=== PATIENT | male | born 1930 | race Caucasian/White ===

== ENCOUNTER 2016-11-23 14:19 | Inpatient (IN) ==
--- NOTE | 2016-11-23 17:32 | Internal Med History&Physical ---
Date of Encounter: 11/23/16 Time of Encounter: 17:24 Assessment and Plan (1) Afib Current visit: Yes Status: Acute Rate is controlled. Patient is not on any rate blocking medications. I will avoid starting beta blockers and the perioperative period since he is not on it.Prior studies showed that rapid initiation of Beta blockers preoperative is associated with worse outcomes. Continue aspirin perioperatively. If rate comes fast will give the patient digoxin. His INR is 1.84. He took Coumadin yesterday. Hold Coumadin today. Check INR in the morning. Hopefully if it is less than 1.6 surgery may be possible depending on surgeon preference. Continuous telemetry monitoring Qualifiers: Qualified Code(s): I48.91 - Unspecified atrial fibrillation (2) Closed right hip fracture Current visit: Yes Status: Acute Orthopedic surgery consult. Physical therapy occupational therapy and social media manager for skilled care placement on discharge Qualifiers: Qualified Code(s): S72.001A - Fracture of unspecified part of neck of right femur, initial encounter for closed fracture (3) Coronary artery disease Current visit: Yes Status: Acute Stable he denies any exertional chest pain. He had cabbage 2 years ago. Patient may benefit from beta blockers as an outpatient physical rate would allow. Continue aspirin Qualifiers: Qualified Code(s): I25.10 - Atherosclerotic heart disease of [place] coronary artery without angina pectoris (4) COPD (chronic obstructive pulmonary disease) Current visit: Yes Status: Acute Stable. No active wheezing Qualifiers: Qualified Code(s): J44.9 - Chronic obstructive pulmonary disease, unspecified (5) DVT prophylaxis Current visit: Yes Status: Acute INR is 1.84 today. (6) Preoperative clearance Current visit: Yes Status: Acute I will ask cardiology service for preoperative clearance. Patient has limited functional capacity because of his COPD mainly. However he denies any chest pain with exertion or at rest. Will check 12 lead electrocardiogram. He is a nature flutter and will have to make sure that his rate is optimally controlled prior to surgery Internal Medicine - H&P: HPI Chief complaint: right hip paoin after fall History of present illness: Mr. Bland is a 86 year old male with multiple medical problems including CABG surgery in 2015, COPD not on home oxygen, chronic persistent atrial fibrillation on anticoagulation with Coumadin, history of prostate cancer, peripheral neuropathy, was transferred from outside ER after he was found to have right hip fracture. Patient yesterday was entering a restaurant tripped in the steps and fell down on the right hip. He denies any loss of consciousness chest pain, palpitations prior to the fall. He does not fall previously. After the fall he was having pain in the right hip area and was unable to bear weight on the right lower extremity. X-ray showed minimally displaced right into trochanteric hip fracture. Patient denies any recent febrile illness. No focal neurological deficits. Patient takes Coumadin 1 mg daily he does not check his INR. INR today's 1.84. He took his Coumadin yesterday. Patient has limited functional capacity because of COPD. He can walk half a block. He denies any limiting chest pain but limitation is mainly due to shortness of breath. Past Med Surg Social Fam HX - Past Medical History Medical history: atrial fibrillation, cancer, COPD, hypertension, kidney stones Psychiatric history: anxiety - Past Surgical History Surgical History: coronary bypass (CABG) - Social History Smoking Status: Never smoker Alcohol use: none Drug use: none Internal Medicine - H&P: Meds Aspirin [Lo-Dose Aspirin EC] 81 mg PO DAILY 11/23/16 [History] Warfarin [Coumadin] 1 mg PO DAILY 11/23/16 [History] Allergies ciprofloxacin [From Cipro] Adverse Reaction (Verified 11/23/16 17:18) Nausea Oxycodone [From Percocet] Adverse Reaction (Verified 11/23/16 17:18) Nausea rofecoxib [From Vioxx] Adverse Reaction (Verified 11/23/16 17:18) Nausea All Systems PM: A 10-system review of systems was performed and is negative for pertinent findings except as documented above in the HPI. Review of systems: 10 point review of systems is negative except for HPI - Constitutional Vitals: Temp Pulse Resp BP Pulse Ox 97.5 F L 82 18 139/69 97 11/23/16 17:11 11/23/16 17:11 11/23/16 17:11 11/23/16 17:11 11/23/16 17:11 Exam: Gen.: patient is alert oriented times 3 not in distress. Cardiac: variable intensity of S1 isatu to AFib chest: fair air entry. no active wheezing. No crackles or bronchial breathing. abdomen: soft nontender nondistended normal bowel sounds neuro: no focal deficit
[2016-11-23] MEDS: Ondansetron 4 MG/2 ML VIAL IVP PRN (17:45)
[2016-11-23 17:47] LABS: INR 1.6; Prothrombin Time 17.3 Seconds (9.4-12.1)
[2016-11-23] MEDS: *HR* Morphine 2 MG/ML SYRINGE IVP PRN ×2 (18:23→23:21)
[2016-11-24] MEDS: Ondansetron 4 MG/2 ML VIAL IVP PRN (00:18)
[2016-11-24] MEDS: *HR* Morphine 2 MG/ML SYRINGE IVP PRN ×3 (03:35→14:52)
[2016-11-24 04:49] LABS: Basophils % 0.5 %; Eosinophils % 0.2 %; Hematocrit 25.9 % (37.5-50.1); Hemoglobin 8.7 g/dL (12.9-16.9); Immature Granulocytes % 3.3 % (0-4); Lymphocytes % 18.7 %; Mean Corpuscular HGB Conc 33.6 g/dL (31.6-35.5); Mean Corpuscular Hemoglobin 39.2 pg (28.0-33.3); Mean Corpuscular Volume 116.7 fL (83.0-100.0); Mean Platelet Volume 10.6 fL (9.4-12.4); Monocytes # 1.1 K/mcL (0.0-1.3); Monocytes % 17.3 %; Neutrophils # 3.7 K/mcL (1.6-8.9); Platelet Count 187 K/mcL (140-400); Red Blood Count 2.22 M/mcL (4.19-5.50)
[2016-11-24 04:52] LABS: Lymphocytes # 1.1 K/mcL (0.6-4.6)
[2016-11-24 05:02] LABS: BUN/Creatinine Ratio 22 (6-26); Blood Urea Nitrogen 21 mg/dL (8-26); Calcium 8.8 mg/dL (8.6-10.8); Carbon Dioxide 26 mEq/L (19-29); Chloride 101 mEq/L (98-109); Glucose 127 mg/dL (70-99); Magnesium 1.9 mg/dL (1.6-2.6); Osmolality,Calculated 285 (280-300); Potassium 4.2 mEq/L (3.5-4.5); Sodium 135 mEq/L (136-145); eGFR For African Americans > 60 (> 60); eGFR For Non-African Americans > 60 (> 60)
[2016-11-24 05:34] LABS: Anisocytosis 1+ (Not Present); Large Platelets Present (Not Present); Macrocytosis Present (Not Present); Platelet Estimate Normal (Normal); Poikilocytosis 1+ (Not Present)
[2016-11-24 05:35] LABS: Ovalocytes 1+ (Not Present)
[2016-11-24] MEDS ORDERED: Bisacodyl 10 MG RECTAL SUPPOSITORY RC STA (08:38)
[2016-11-24] MEDS ORDERED: Famotidine 20 MG TABLET PO SCH (09:00)
[2016-11-24] MEDS ORDERED: Sennosides/Docusate Sodium TABLET PO SCH (09:00)
[2016-11-24] MEDS ORDERED: Aspirin Enteric Coated 81 MG Tablet PO SCH (09:00)
--- NOTE | 2016-11-24 10:24 | Cardiology Consult Note ---
<CrowAlexa Cody - Last Filed: 11/24/16 11:06> Date of Encounter: 11/24/16 Time of Encounter: 10:00 Assessment and Plan (1) Closed right hip fracture Current Visit: Yes Status: Acute Per cardiology: -Patient with fall. -Orthopedic surgery consult. -Fracture confirmed with hip x-ray and hip CT. -Management per primary and orthopedic surgery services. Qualifiers: Encounter type: initial encounter Qualified Code(s): S72.001A - Fracture of unspecified part of neck of right femur, initial encounter for closed fracture (2) Preoperative clearance Current Visit: Yes Status: Acute Per cardiology: -Pre-op clearance for hip fracture, -Patient with known CAD with CABG 3-4 years ago. -Patient denies chest pain. -Patient admits to increased fatigue and increased shortness of breath. -Will obtain ECG and echocardogram. -Will obtain cardiology records from [facility]. -Further recommendations pending ECG, echo, and review of records. -Patient and family state understanding and agree with plan. (3) Afib Current Visit: Yes Status: Chronic Per cardiology: -Known history of a.fib, not on any rate controlling medications. Pateint states has been a.fib since CABG. -Patient unsure why he is not on medications. -Records have been requested. -On coumadin, however only takes 1mg per day. Patient states no one monitors INR or coumadin dosing. -Currently a.fib, HR 75. -Denies bleeding, blood loss, stroke like symptoms, or DVT. -Of note, Hemoglobin 8.7, unsure of baseline. Will await records. -Further recommendations pending review of records. Qualifiers: Atrial fibrillation type: chronic Qualified Code(s): I48.2 - Chronic atrial fibrillation (4) Coronary artery disease Current Visit: Yes Status: Chronic Per cardiology: -KNown CAD with CABG x3 3-4 years ago. -Patient denies cath since CABG. -Pateint reports echo 3 years ago. -Patient states is not on beta selene, statin at home. States he only takes asa and coumadin. -Patient denies chest pain. -Admits to increased shortness of breath and increased fatigue. -Echo and ECG pending. -Further recommendations pending echo, ECG, and review of previous medical records. Qualifiers: Coronary Disease-Associated Artery/Lesion type: unspecified vessel or lesion type [place] vs. transplanted heart: [place] heart Associated angina: without angina Qualified Code(s): I25.10 - Atherosclerotic heart disease of [place] coronary artery without angina pectoris Discussion w patient/family: The assessment and plan as outlined above was discussed with the patient and/or family members who expressed understanding and agreement. All questions were answered. Thank you for involving us in the care of your patient. Please call with any questions. Discussed and reviewed with . History of Present Illness Consult date: 11/23/16 Requesting physician: Kwadwo Tsai Consult reason: pre-op clearance. History of CABG, a.fib Chief complaint: hip pain History of present illness: Mr. Bland is a 86 year old male with a relevant past medical history of CAD s/ p CABG x3 3-4 years ago, atrial fibrillation, COPD, prostate CA, neuropathy. Patient presents to [facility] after a fall with hip pain. Patient noted to have fracture and cardiology was consulted for pre-operative clearance. Patient states CABG was 3-4 years ago at [facility] with 3 bypass grafts. Patient denies cardiac catheterization since CABG. Patient admits to atrial fibrillation since CABG. Patient states he is not on any rate control medications. Patient states he takes 1mg of coumadin per day. Patient states no one monitors INR or coumadin dosing. Patient states last echocardiogram 3 years ago. Patient denies chest pain. Patient states shortness of breath has worsened in the past year. Patient admits to COPD and states had recent abnormal PFTs. Patient admits to increased fatigue over the last year. Patient's son at bedside and affirms patient's medical history. Past Med Surg Social Fam HX - Past Medical History Attestation: Yes The following information was validated with the patient. Source: patient, obtained from family Medical history: atrial fibrillation, cancer, COPD, hypertension, kidney stones Psychiatric history: anxiety - Past Surgical History Surgical History: coronary bypass (CABG) - Social History Smoking Status: Never smoker Alcohol use: none Drug use: none Medications and Allergies Aspirin [Lo-Dose Aspirin EC] 81 mg PO DAILY 11/23/16 [History] Warfarin [Coumadin] 1 mg PO DAILY 11/23/16 [History] Allergies ciprofloxacin [From Cipro] Adverse Reaction (Verified 11/23/16 17:18) Nausea Oxycodone [From Percocet] Adverse Reaction (Verified 11/23/16 17:18) Nausea rofecoxib [From Vioxx] Adverse Reaction (Verified 11/23/16 17:18) Nausea All Systems Review: A 10-system review of systems was performed and is negative for pertinent findings except as documented above in the HPI. - Constitutional Constitutional: fatigue - Cardiovascular Cardiovascular: as per HPI, dyspnea on exertion - Musculoskeletal Musculoskeletal: other (hip pain) Physical Examination Vital Signs, Last 4 Hours Temp Pulse Resp BP Pulse Ox 11/24/16 06:47 98.3 F 67 16 129/68 95 General: Conversant, No Apparent Distress HEENT: Atraumatic, Normocephaly, Mucus Membranes Moist Neck: No JVD, Normal carotid pulses Cardiac: Other (Irregularly, irregular) Lungs: Normal Breath Sounds, No Wheeze, Rales, Rhonchi Neuro: Alert and responsive, No focal deficits noted Abdomen: Soft, Non-Tender Skin: No rashes noted on visualized skin Musculoskeletal: No Chest Wall Tenderness, Other (Hip pain) Extremities: No Clubbing, No Cyanosis, No Edema, Normal Pulses Results 11/24/16 09:31 11/24/16 04:13 Lab Results Impressions Hip X-Ray 11/24/16 06:46 IMPRESSION: Questionable nondisplaced traumatic right femoral neck fracture. Recommend cross-sectional imaging for further evaluation given degree of osteopenia and overlying artifact. The findings were sent to the Radiology Results Communication Center at 7:51 am on 11/24/2016to be communicated to a licensed caregiver. D/ / Julio Roblse MD / Julio Robles MD Interpreting Provider: Julio Robles MD Hip CT 11/24/16 07:56 IMPRESSION: Acute nondisplaced, non angulated hairline fracture through the low right femoral neck. 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 Note that the distal aorta was not included on this pelvic CT. D/ / Trevor Galindo MD / Trevor Galindo MD Interpreting Provider: Trevor Galindo MD Active Medications Aspirin (Aspirin Ec) 81 mg PO DAILY OZZY Stop: 05/26/17 09:01 Last Admin: 11/24/16 08:57 Dose: 81 mg Famotidine (Pepcid) 20 mg PO DAILY OZZY PRN Reason: Protocol Stop: 05/26/17 09:01 Last Admin: 11/24/16 08:57 Dose: 20 mg Morphine Sulfate (Morphine Sulfate) 1 mg IVP Q4HR PRN PRN Reason: Pain Stop: 05/25/17 17:23 Last Admin: 11/24/16 08:57 Dose: 1 mg Ondansetron HCl (Zofran) 4 mg IVP Q6HR PRN; Protocol PRN Reason: Nausea Stop: 05/25/17 17:23 Last Admin: 11/24/16 00:18 Dose: 4 mg Senna/Docusate Sodium (Senna Plus) 2 each PO BID OZZY PRN Reason: Protocol Stop: 05/26/17 09:01 Last Admin: 11/24/16 08:57 Dose: 2 each Laboratory Tests 11/23/16 11/24/16 11/24/16 17:35 04:13 04:13 Hgb 8.7 L Hct 25.9 L INR 1.6 Creatinine 0.95 - Imaging and Cardiology Echo: pending - EKG Interpretation EKG results cardiology: other (Telemetry reviewed with average HR 75, atrial fibrillation. Longest pause noted to be 2 seconds. PVCs and rare couplets noted. ) Consult Discharge Plan - Plan Referrals: Vivek Sosa DO [Primary Care Provider] - <Paula Barrera - Last Filed: 11/24/16 17:17> Date of Encounter: 11/24/16 Assessment and Plan Discussion w patient/family: The assessment and plan as outlined above was discussed with the patient and/or family members who expressed understanding and agreement. All questions were answered. Thank you for involving us in the care of your patient. Please call with any questions. History of Present Illness History of present illness: Mr. Bland is a 86 year old male All Systems Review: A 10-system review of systems was performed and is negative for pertinent findings except as documented above in the HPI. Physical Examination Vital Signs, Last 4 Hours Temp Pulse Resp BP Pulse Ox 11/24/16 15:00 97.7 F 84 16 115/64 94 Results 11/24/16 13:35 11/24/16 04:13 Lab Results 11/23/16 11/24/16 11/24/16 17:35 04:13 04:13 WBC 6.1 Hgb 8.7 L Hct 25.9 L Plt Count 187 INR 1.6 Sodium 135 L Potassium 4.2 Chloride 101 Carbon Dioxide 26 BUN 21 Creatinine 0.95 Glucose 127 H Calcium 8.8 Magnesium 1.9 11/24/16 11/24/16 11/24/16 09:31 13:35 13:35 WBC Hgb 9.0 L 9.4 L Hct 26.6 L 27.7 L Plt Count INR 1.5 Sodium Potassium Chloride Carbon Dioxide BUN Creatinine Glucose Calcium Magnesium - Attending Attestation I examined this patient and my medical decision-making was reviewed with the MANAGEMENT LIAISON/PA/Advanced Practice Nurse/Resident Physician. I agree with the documented findings, disposition and treatment plan. Mr. 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 He did not lose consciousness. We reviewed his medical records documenting history of CAD s/p CABG in 2014. He had an echo at that time demonstrating normal LVEF with moderate MR without comment about aortic valve pathology. His echo presently documents normal LVEF with a heavily calcified aortic valve, gradients of which were not well obtained and otherwise mild valvular abnormalities. On exam, he also has a murmur of aortic stenosis. We have recommended performing a limited echo for further evaluation of the valve pre-procedurally. Otherwise, he denies any complaints of chest pain over the last 6 months and no breathing difficulties. He admits to fair functional capacity with some mechanical limitation. He has rate controlled AF/ AFL and is on coumadin.
[2016-11-24 10:45] LABS: Hematocrit 26.6 % (37.5-50.1)
[2016-11-24 10:46] LABS: % Iron Saturation 23 % (20-55); Iron 60 mcg/dL (65-175); Transferrin 187 mg/dL (174-364)
[2016-11-24 11:20] LABS: Ferritin 543 ng/ml (22-275)
[2016-11-24 11:47] LABS: Folate 8.9 ng/mL (7.0-31.4)
[2016-11-24 13:44] LABS: Hematocrit 27.7 % (37.5-50.1); Hemoglobin 9.4 g/dL (12.9-16.9)
[2016-11-24 13:53] LABS: INR 1.5; Prothrombin Time 16.9 Seconds (9.4-12.1)
--- NOTE | 2016-11-24 15:00 | Electrocardiograph Report ---
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
--- NOTE | 2016-11-24 16:09 | Internal Med Progress Note ---
<DarylLindy Angelicanaz Woo - Last Filed: 11/24/16 16:41> Date of Encounter: 11/24/16 Time of Encounter: 11:00 - Assessment and plan (1) Closed right hip fracture Current Visit: Yes Status: Acute Assessment and plan: Patient presented to hospital with fall at [facility] CT of right hip demonstrated acute nondisplaced, non angulated hairline fracture through the low right femoral neck Patient currently NPO and pending surgical evaluation per ortho Orthopedics team has been consulted We appreciate their evaluation and treatment of this patient Qualifiers: Encounter type: initial encounter Qualified Code(s): S72.001A - Fracture of unspecified part of neck of right femur, initial encounter for closed fracture (2) Afib Current Visit: Yes Status: Chronic Assessment and plan: Patient is not rate-controlled Coumadin being held due to possible surgery Per cardiology notes, patient takes 1mg coumadin per day, but does not monitor INR Current INR 1.6 Qualifiers: Atrial fibrillation type: chronic Qualified Code(s): I48.2 - Chronic atrial fibrillation (3) Macrocytic anemia Current Visit: Yes Status: Acute Assessment and plan: Patient has Hb of 8.7 with increased MCV Patient has increased RDW, therefore he may have mixed anemia Patient reports that he takes Vitamin B12 over the counter Will obtain iron profile, ferritin, B12, folate (4) Coronary artery disease Current Visit: Yes Status: Chronic Assessment and plan: S/P CABG 3-4 years ago Takes ASA 81mg daily Does not take BB, statin, or ARMANI inhibitor Cardiology has been consulted for cardiac clearance for surgery Qualifiers: Coronary Disease-Associated Artery/Lesion type: unspecified vessel or lesion type [place] vs. transplanted heart: [place] heart Associated angina: without angina Qualified Code(s): I25.10 - Atherosclerotic heart disease of [place] coronary artery without angina pectoris (5) Preoperative clearance Current Visit: Yes Status: Acute Assessment and plan: Pre-operative clearance has seen patient for cardiology clearance (6) COPD (chronic obstructive pulmonary disease) Current Visit: Yes Status: Acute Assessment and plan: Stable. No wheezing. Qualifiers: COPD type: unspecified COPD Qualified Code(s): J44.9 - Chronic obstructive pulmonary disease, unspecified (7) DVT prophylaxis Current Visit: Yes Status: Acute Assessment and plan: SCDs - Subjective Interval history: Patient presented to hospital 1 day ago for fall resulting in closed right hip fracture. Patient states that he fell while dining at [employer]. Patient was helped to his car by restaurant employee. He drove home, but once home was unable to get out of his car. Patient's son was able to extract patient from the car. Ambulance was called. Patient was found to have closed right hip fracture. Patient admits some right-sided hip pain at this time. He also complains that he has not had a bowel movement in 2 days. Otherwise, patient has no other complaints. - Constitutional Vitals: Temp Pulse Resp BP Pulse Ox 97.7 F 84 16 115/64 94 11/24/16 15:00 11/24/16 15:00 11/24/16 15:00 11/24/16 15:00 11/24/16 15:00 General appearance: Present: A&O X 3, no acute distress, underweight, answers questions appropriately - Head Head exam: Present: atraumatic, normocephalic - Eye Eye exam: Present: EOMI, conjuntiva pink (Pale pink conjunctiva), sclera anicteric - Neck Neck exam general surgery: Present: supple, trachea midline. Absent: lymphadenopathy Additional comments: No carotid bruit - Respiratory Respiratory exam: Present: CTAB. Absent: accessory muscle use, rales, rhonchi, wheezes - Cardiovascular Cardiovascular exam: Present: irregular rhythm, +S1, +S2, systolic murmur. Absent: diastolic murmur, gallop, rubs - GI/Abdominal GI/Abdominal exam: Present: normal bowel sounds, soft, no peritoneal signs. Absent: distended, tenderness - Extremities Exam Extremities exam: Present: warm, radial pulses palpable and symetrical. Absent : cyanotic, full ROM, pedal edema Additional comments: TTP of right hip No hematoma or ecchymosis noted - Neurological Exam Neurological exam: Present: CN II-XII intact, oriented X3, no focal deficits, pronater drift. Absent: facial droop, speech deficit - Skin Skin exam: Present: dry, intact - Other Additional findings: Hip X-Ray 11/24/16 06:46 IMPRESSION: Questionable nondisplaced traumatic right femoral neck fracture. Recommend cross-sectional imaging for further evaluation given degree of osteopenia and overlying artifact. The findings were sent to the Radiology Results Communication Center at 7:51 am on 11/24/2016to be communicated to a licensed caregiver. D/ / Julio Robles MD / Julio Robles MD Interpreting Provider: Julio Robles MD Hip CT 11/24/16 07:56 IMPRESSION: Acute nondisplaced, non angulated hairline fracture through the low right femoral neck. 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 Note that the distal aorta was not included on this pelvic CT. D/ / Trevor Galindo MD / Trevor Galindo MD Interpreting Provider: Trevro Galindo MD Internal Medicine: Result - Labs CBC & Chem 7: 11/24/16 13:35 11/24/16 04:13 Labs: Short CBC 11/24/16 11/24/16 11/24/16 Range/Units 04:13 09:31 13:35 WBC 6.1 (4.3-11.1) K/mcL Hgb 8.7 L 9.0 L 9.4 L (12.9-16.9) g/dL Hct 25.9 L 26.6 L 27.7 L (37.5-50.1) % Plt Count 187 (140-400) K/mcL Neutrophils # 3.7 (1.6-8.9) K/mcL BMP 11/24/16 04:13 Sodium 135 L Potassium 4.2 Chloride 101 Carbon Dioxide 26 BUN 21 Creatinine 0.95 Glucose 127 H Calcium 8.8 - ABG Interpretation ABG results: PT/INR, D-dimer PT 16.9 Seconds (9.4-12.1) H 11/24/16 13:35 - Impressions Impressions Hip X-Ray 11/24/16 06:46 IMPRESSION: Questionable nondisplaced traumatic right femoral neck fracture. Recommend cross-sectional imaging for further evaluation given degree of osteopenia and overlying artifact. The findings were sent to the Radiology Results Communication Center at 7:51 am on 11/24/2016to be communicated to a licensed caregiver. D/ / Julio Robles MD / Julio Robles MD Interpreting Provider: Julio Robles MD Hip CT 11/24/16 07:56 IMPRESSION: Acute nondisplaced, non angulated hairline fracture through the low right femoral neck. 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 Note that the distal aorta was not included on this pelvic CT. D/ / Trevor Galindo MD / Trevor Galindo MD Interpreting Provider: Trevor Galindo MD Consult Discharge Plan - Plan Referrals: Vivek Sosa DO [Primary Care Provider] - <Jarrod Mcgregor - Last Filed: 11/24/16 19:46> Date of Encounter: 11/24/16 - Constitutional Vitals: Temp Pulse Resp BP Pulse Ox 97.7 F 84 16 115/64 94 11/24/16 15:00 11/24/16 15:00 11/24/16 15:00 11/24/16 15:00 11/24/16 15:00 Internal Medicine: Result - Labs CBC & Chem 7: 11/24/16 13:35 11/24/16 04:13 Labs: Short CBC 11/24/16 11/24/16 11/24/16 Range/Units 04:13 09:31 13:35 WBC 6.1 (4.3-11.1) K/mcL Hgb 8.7 L 9.0 L 9.4 L (12.9-16.9) g/dL Hct 25.9 L 26.6 L 27.7 L (37.5-50.1) % Plt Count 187 (140-400) K/mcL Neutrophils # 3.7 (1.6-8.9) K/mcL BMP 11/24/16 04:13 Sodium 135 L Potassium 4.2 Chloride 101 Carbon Dioxide 26 BUN 21 Creatinine 0.95 Glucose 127 H Calcium 8.8 - ABG Interpretation ABG results: PT/INR, D-dimer PT 16.9 Seconds (9.4-12.1) H 11/24/16 13:35 - Impressions Impressions Hip X-Ray 11/24/16 06:46 IMPRESSION: Questionable nondisplaced traumatic right femoral neck fracture. Recommend cross-sectional imaging for further evaluation given degree of osteopenia and overlying artifact. The findings were sent to the Radiology Results Communication Center at 7:51 am on 11/24/2016to be communicated to a licensed caregiver. D/ / Julio Robles MD / Julio Robles MD Interpreting Provider: Julio Robles MD Hip CT 11/24/16 07:56 IMPRESSION: Acute nondisplaced, non angulated hairline fracture through the low right femoral neck. 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 Note that the distal aorta was not included on this pelvic CT. D/ / Trevor Galindo MD / Trevor Galindo MD Interpreting Provider: Trevor Galindo MD - Attending Attestation I examined this patient and my medical decision-making was reviewed with the Resident Physician, Dr Lindy Brito. I agree with the documented findings, disposition and treatment plan as described except to the extent set forth below. Patient is in no acute distress awake alert oriented. Heart is regular S1-S2 no murmurs lungs are clear abdomen is soft extremities with no deformity no edema no obvious shortening of the lower extremity. Mild tenderness to palpation of the right hip. Plan: Patient cleared for hip surgery. He will require FFP prior to surgery due to anticoagulation with Coumadin and INR 1.6. He is at high risk for morbidity mortality and complications due to major surgery today.
--- NOTE | 2016-11-24 16:32 | ECHO - Doppler Report ---
Echocardiogram Name: Jayesh Bland Date of Study: 11/24/2016 Date: 1930 Ht: 69.0 in Medical Record#: [id number] Age: 86 Wt: 168.0 lb Gender: Male BSA: 1.92 Order #: [id number] Location: [facility] Room #: [id number] Reading Physician: Mata Yun DO, SYLWIA, SHERLY BARROS Station Gateman: Heriberto Sparks RN Ordering Physician: Alexa Maria CNP Primary Physician: Vivek Sosa DO Indications: Preoperative Examination Impressions: LVEF 55%. Asymmetric hypertrophy of the basal septum. No LVOT obstruction. 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 Atypical septal motion consistent with post-operative status. Indeterminate diastolic function. Grossly normal right ventricular structure and function. Severely dilated left atrium. Heavily calcified, trileaflet aortic valve with reduced mobility. No aortic stenosis by Doppler, but gradients were not well obtained. Mild mitral regurgitation. Mild tricuspid regurgitation. Mild pulmonary hypertension. Estimated RVSP is 40 mmHg. Consider a repeat limited study with attention to the aortic valve. 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 All other wall segments showed normal motion. Findings: Study Quality * Technically adequate exam. ECG Findings * Atrial flutter. Left Ventricle * LVEF 55%. * Normal LV chamber size. Asymmetric hypertrophy of the basal septum. No LVOT obstruction. 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 * Atypical septal motion consistent with post-operative status. * Indeterminate diastolic function. Right Ventricle * Grossly normal right ventricular structure and function. Left Atrium * Severely dilated left atrium. Right Atrium * Right atrium was not well quantified, but appears significantly dilated. Interatrial Septum * No evidence of PFO by color Doppler. Aortic Valve * Heavily calcified, trileaflet aortic valve with reduced mobility. * No aortic stenosis by Doppler, but gradients were not well obtained. * Trace aortic regurgitation. Mitral Valve * Normal mitral valve structure. * Mild mitral regurgitation. * No mitral stenosis. Tricuspid Valve * Normal tricuspid valve structure. * Mild tricuspid regurgitation. * Mild pulmonary hypertension. * Estimated RVSP is 40 mmHg. * Estimated RA pressure is 5 mmHg. Pulmonic Valve * Normal pulmonic valve structure. * Mild pulmonic regurgitation. Aorta * Normally sized aortic root. Pericardium * The pericardium appears normal. IVC * Normal IVC dimensions and inspiratory collapse. Pulmonary Artery * Normal visualized portions of the main pulmonary artery. History Hypertension Family History of CAD History of CAD/PTCA Myocardial Infarction Coronary Artery Bypass Graft Measurements: BP: 142/ 87 2D Normal Values RVIDd: 3.60 cm <2.7 cm IVSd: 1.70 cm 0.6 - 1.0 cm LVIDd: 3.70 cm 3.7 - 5.6 cm LVPWd: 1.50 cm 0.6 - 1.1 cm LVIDs: 2.50 cm 1.5 - 3.6 cm LA: 4.60 cm 2.0 - 4.0cm %FS: 32.40 cm >25 % LVOT Diam: 2.00 cm LA volume: 129 Mitral Valve Peak E:1.06 m/sec Peak E' Lat Hans:9.46 cm/s Peak E' Med Hans:7.41 cm/s E/E' Lat Ratio:11.2 E/E' Med Ratio:14.3 Aortic Valve AI pressure Half-time: 502.00 msec Tricuspid Valve TV Regurg Peak Grad: 35.00mmHg TV Regurg Peak Hans: 2.97m/sec Updated by Mata Yun DO, SYLWIA, SHERLY BARROS on 11/24/2016 4:23:45 PM electronically signed on 11/24/2016 4:26:45 PM with status of Final Wall Motion Beltran: 1=Normal, 2=Hypokinesis, 3=Akinesis, 4=Dyskinesis, 5=Aneurysmal, 6=Hyperkinetic, X=Not Visualized (Blank)=Missing
--- NOTE | 2016-11-24 18:14 | Orthopedic Consult Note ---
Date of Encounter: 11/24/16 Time of Encounter: 13:00 Assessment and Plan (1) Closed right hip fracture Current Visit: Yes Status: Acute Patient was seen and examined this AM by . Surgery needed for Right Hip fracture. Surgical plan was discussed by Alicia. Consent reviewed and signed by the patient. Risks versus benefits discussed. All questions were addressed and answered. Cardiac clearance pending repeat Echocardogram to further evaluate Aortic valve. Discussed with egg candler. Plan for surgery - Right hip Open Reduction and intramedullary nail fixation with today, or when cleared by Rubber Cutter. Continue NPO. NWB, ferreira catheter 1815: Cleared by Cardio after repeat limited Echo - Moderate risk for surgery Qualifiers: Encounter type: initial encounter Qualified Code(s): S72.001A - Fracture of unspecified part of neck of right femur, initial encounter for closed fracture (2) History of coronary artery bypass graft Current Visit: Yes Status: Acute (3) COPD (chronic obstructive pulmonary disease) Current Visit: Yes Status: Acute Qualifiers: COPD type: unspecified COPD Qualified Code(s): J44.9 - Chronic obstructive pulmonary disease, unspecified (4) Afib Current Visit: Yes Status: Chronic Qualifiers: Atrial fibrillation type: chronic Qualified Code(s): I48.2 - Chronic atrial fibrillation (5) Coronary artery disease Current Visit: Yes Status: Chronic Qualifiers: Coronary Disease-Associated Artery/Lesion type: unspecified vessel or lesion type [place] vs. transplanted heart: [place] heart Associated angina: without angina Qualified Code(s): I25.10 - Atherosclerotic heart disease of [place] coronary artery without angina pectoris History of Present Illness Chief complaint: Fall HPI: Mr. Bland is a 86 year old male, multiple medical problems including CABG surgery in 2014, COPD not on home oxygen, chronic persistent atrial fibrillation on anticoagulation with Coumadin, history of prostate cancer, peripheral neuropathy. He was transferred from outside ER after he was found to have right hip fracture. Yesterday, he was entering a restaurant tripped in the steps and fell down on the right hip. He denies any LOC, chest pain, palpitations prior to the fall. He denies fall previously. He c/o right hip area and was unable to bear weight on the right lower extremity. X-ray showed minimally displaced right into trochanteric hip fracture. Patient denies any recent febrile illness. No focal neurological deficits. Patient takes Coumadin 1 mg daily he does not check his INR. INR today's 1.84. He took his Coumadin yesterday. Patient has limited functional capacity because of COPD. He can walk half a block. He denies any limiting chest pain but limitation is mainly due to shortness of breath. Past Med Surg Social Fam HX - Past Medical History Medical history: atrial fibrillation, cancer, COPD, hypertension, kidney stones Psychiatric history: anxiety - Past Surgical History Surgical History: coronary bypass (CABG) - Social History Smoking Status: Never smoker Alcohol use: none Drug use: none Medications and Allergies Aspirin [Lo-Dose Aspirin EC] 81 mg PO DAILY 11/23/16 [History] Warfarin [Coumadin] 1 mg PO DAILY 11/23/16 [History] Allergies ciprofloxacin [From Cipro] Adverse Reaction (Verified 11/23/16 17:18) Nausea Oxycodone [From Percocet] Adverse Reaction (Verified 11/23/16 17:18) Nausea rofecoxib [From Vioxx] Adverse Reaction (Verified 11/23/16 17:18) Nausea All Systems Reviewed: A 10-system review of systems was performed and is negative for pertinent findings except as documented above in the HPI. Physical Exam - Constitutional Vitals: Temp Pulse Resp BP Pulse Ox 97.7 F 84 16 115/64 94 11/24/16 15:00 11/24/16 15:00 11/24/16 15:00 11/24/16 15:00 11/24/16 15:00 - Fracture right hip Location of fracture: Right Hip Appearance: swelling, other Compartments: soft Distal extremity neurovascularly intact: Yes Proximal joint involvement: No Distal joint involvement: No Results - Labs Result Diagrams: 11/24/16 13:35 11/24/16 04:13 Labs: Abnormal lab results RBC 2.22 M/mcL (4.19-5.50) L 11/24/16 04:13 Hgb 9.4 g/dL (12.9-16.9) L 11/24/16 13:35 Hct 27.7 % (37.5-50.1) L 11/24/16 13:35 MCV 116.7 fL (83.0-100.0) H 11/24/16 04:13 MCH 39.2 pg (28.0-33.3) H 11/24/16 04:13 RDW 19.0 % (11.5-14.5) H 11/24/16 04:13 Large Platelets Present (Not Present) A 11/24/16 04:13 Poikilocytosis 1+ (Not Present) A 11/24/16 04:13 Anisocytosis 1+ (Not Present) A 11/24/16 04:13 Macrocytosis Present (Not Present) A 11/24/16 04:13 Ovalocytes 1+ (Not Present) A 11/24/16 04:13 PT 16.9 Seconds (9.4-12.1) H 11/24/16 13:35 Sodium 135 mEq/L (136-145) L 11/24/16 04:13 Glucose 127 mg/dL (70-99) H 11/24/16 04:13 POC Glucose 130 (58-89) H 11/24/16 11:30 Iron 60 mcg/dL (65-175) L 11/24/16 09:31 Ferritin 543 ng/ml (22-275) H 11/24/16 09:31 H & H 11/24/16 11/24/16 11/24/16 Range/Units 04:13 09:31 13:35 Hgb 8.7 L 9.0 L 9.4 L (12.9-16.9) g/dL Hct 25.9 L 26.6 L 27.7 L (37.5-50.1) % All other labs normal. Physical exam completed by . - Diagnostic results Hip x-ray: report reviewed, image reviewed (by ) Consult Discharge Plan - Plan Referrals: Vivek Sosa DO [Primary Care Provider] -
--- NOTE | 2016-11-24 18:23 | Anesthesia Evaluation PreOp ---
<Dhruv Leroy - Last Filed: 11/24/16 18:20> Date of Encounter: 11/24/16 Time of Encounter: 18:20 - Past History Planned Operation: TFN r femur Cardiac History: HTN, Arrhythmia (af), Cardiac Surgery ([id number]), Other (cad, spoke with Dr. Barrera, echo: 11/24: ef 55%, sclerotic AV but no stenosis by gradient, mild pulm htn) Pulmonary History: COPD Other Medical History: Renal (stones), Other (prostate ca) Alcohol Use: none Drug use: none Medications and Allergies Aspirin [Lo-Dose Aspirin EC] 81 mg PO DAILY 11/23/16 [History] Warfarin [Coumadin] 1 mg PO DAILY 11/23/16 [History] Allergies ciprofloxacin [From Cipro] Adverse Reaction (Verified 11/23/16 17:18) Nausea Oxycodone [From Percocet] Adverse Reaction (Verified 11/23/16 17:18) Nausea rofecoxib [From Vioxx] Adverse Reaction (Verified 11/23/16 17:18) Nausea - Meds/Allergy Pre-op Review Medications Reviewed: Yes Allergies Reviewed: Yes Beta Blockers on Current Med List: No Anesthesia Results - Labs 11/24/16 13:35 11/24/16 04:13 - Imaging EKG: report reviewed (af) Anesthesia Exam Vital Signs/O2 Sat/Glucose, Most Current Temp Pulse Resp BP Pulse Ox 11/24/16 15:00 97.7 F 84 16 115/64 94 Height: 1.75 Weight: 76 NPO (# of Hours): >8 Anesthesia Assess/Plan ASA Score: 3 Modified Cal Scale for Level of Consciousness: Cooperative, oriented, and tranquil Anesthetic Plan: General Monitoring Plan: Standard Monitors Recovery Plan: PACU <Kan Graham - Last Filed: 11/24/16 19:12> Date of Encounter: 11/24/16 - 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 Anesthesia History: No Prior Anesthetic Complications Anesthesia Results - Labs 11/24/16 13:35 11/24/16 04:13 Anesthesia Exam Vital Signs/O2 Sat, Most Current Temp Pulse Resp BP Pulse Ox 97.7 F 84 16 115/64 94 11/24/16 15:00 11/24/16 15:00 11/24/16 15:00 11/24/16 15:00 11/24/16 15:00 - HEENT Pupil (Motor): Pupils equal, EOMI Mallampati: II Teeth: Edentulous Oral Opening: Greater than 3 - TRAMPOLINE TEAM COACH LOC: Oriented TRAMPOLINE TEAM COACH Motor: Normal RUE, Normal LUE, Normal RLE, Normal LLE, Normal Face TRAMPOLINE TEAM COACH Sensory: Normal: RUE, LUE, RLE, LLE, Face - Cardiac Rhythm: Regular Murmur: None JVD: No Carotid Bruit: No - Pulmonary Breath Sounds: bilateral Clear Respiratory Effort: Symmetrical
[2016-11-24] MEDS ORDERED: *HR* FentaNYL (PF) 100 MCG/2 ML VIAL ONE (19:14)
[2016-11-24] MEDS ORDERED: *HR* Propofol 200 MG/20 ML VIAL IVP ONE (19:15)
[2016-11-24] MEDS ORDERED: *HR* HYDROmorphone (PF) 1 MG/ML SYRINGE IVP PRN ×2 (19:16→21:35)
[2016-11-24] MEDS ORDERED: Lidocaine -MPF 2% 2 ML VIAL ONE (19:16)
[2016-11-24] MEDS ORDERED: *HR* Succinylcholine 200 MG/10 ML VIAL IVP ONE (19:16)
[2016-11-24] MEDS ORDERED: *HR* Labetalol 100 MG/20 ML MDV IVP PRN ×2 (19:16→19:18)
--- NOTE | 2016-11-24 19:17 | Event Note ---
Date of Encounter: 11/24/16 Time of Encounter: 19:12 - Cardiology Event Note I reviewed both the complete and limited echo images. Gradients across the valve are normal, probably suboptimal but there does appear to be thickening and calcification of the aortic valve leaflets with moderately reduced leaflet excursion suggesting the presence of aortic stenosis. By exam, the murmur appears moderate in severity and not severe. Echo 2 years ago at time of his CABG did not comment on valve morphology, AR or . In regards to patient's CV risk for hip surgery under general anesthesia, he will likely be at at least intermediate risk given history of CAD and now with presence of . However, he denied recent cardiac symptoms and there does not appear to be active cardiac conditions that need addressed pre-procedure. He should proceed with surgery at the estimated risk and be monitored throughout. This was discussed with Janett Vera and the Anesthesiologist involved with his care.
[2016-11-24] MEDS ORDERED: *HR* Promethazine 25 MG/ML VIAL IVP PRN ×2 (19:18→21:35)
[2016-11-24] MEDS ORDERED: Albuterol 2.5 MG/3 ML NEBULIZER IH ONE (19:18)
[2016-11-24] MEDS ORDERED: Ondansetron 4 MG/2 ML VIAL IVP ONE ×2 (19:18→21:35)
[2016-11-24] MEDS ORDERED: Ondansetron 4 MG/2 ML VIAL ONE (19:30)
[2016-11-24] MEDS ORDERED: Dexamethasone 4 MG/ML VIAL ONE (19:30)
--- NOTE | 2016-11-24 20:04 | Orthopedic Operative Note ---
Date of procedure: 11/24/16 Pre-op diagnosis: Nondisplaced right intertrochanteric hip fracture Post-op diagnosis: same Procedure: Procedure: Right hip open reduction intramedullary nail fixation Estimated blood loss: 200 cc Hardware:Synthes 10 x 1 20 TFN, 105 helical blade, Operative procedure: The patient was brought to the operating room and placed on the operating room table. After general anesthesia was administered the well leg was place in the well leg sanz and the operative leg was placed in the fracture leg sanz. All pressure points were padded appropriately. The operative extremity was prepped and draped in the sterile surgical fashion patient received IV antibiotic prior to skin incision. A standard direct lateral approach was made over the entry point of the greater trochanter, the incision was made through the skin and subcutaneous tissue hemostasis was obtained with Bovie cautery. Using careful sharp dissection the fascia was identified and incised, flouroscopic assistance was used to identify the entry point. The guidepin was placed at the entry point using fluroscopic assistance, it was over reamed with the proximal reamer. The 10 x 120 nail was placed through the entry hole, across the fracture site into the distal fragment. the position was confirmed with fluroscopy. A guide pin was placed through the proximal locking guide from the lateral femur through the nail across the fracture site into the femoral head, it was over reamed with the reamer. The 105 helical blade was placed over the guide pin through the nail into the femoral head, locked in place with the proximal locking bolt. The position of hardware and fracture reduction found to be acceptable with fluroscopic assistance. The wound was irrigated. Fascia was closed with a running #2 PDS suture. The deep tissue was irrigated and closed deep with #1 PDS suture superficially with 0 PDS suture and skin was closed with skin teresa. The patient was placed in a sterile dressing The patient was extubated and transferred to the recovery room in stable condition. Anesthesia: GETA Surgeon: Garcia Palomino Nursing Service Director: Janett Vera Condition: stable Disposition: PACU
[2016-11-24] MEDS ORDERED: EPHEDrine 50 MG/ML VIAL ONE (20:25)
--- NOTE | 2016-11-24 21:08 | Anesthesia Evaluation Post Op ---
Date of Encounter: 11/24/16 Time of Encounter: 21:07 - Vital Signs Vital Signs: Vital Signs/O2 Sat, Most Current Temp Pulse Resp BP Pulse Ox 97.2 F L 94 20 117/80 93 11/24/16 20:58 11/24/16 20:58 11/24/16 20:58 11/24/16 20:58 11/24/16 20:58 - Lungs Lungs: Clear Ascult./Percussion - Airway Airway: Non-obstructed - Cardiovascular Regular Rate - Mental Status Mental Status: Alert & Oriented, Answers Appropriately - Pain Pain Scale: 0 Pain Scale used: Numeric (1 - 10) - Nausea Vomiting Nausea Vomiting: Not Present - Hydration Hydration: NPO, Has not voided - Discharge PostOp Status: Transfer Patient to floor
[2016-11-24] MEDS ORDERED: Ondansetron 4 MG/2 ML VIAL IVP PRN (21:35)
[2016-11-24] MEDS ORDERED: *HR* Labetalol 20 MG/4 ML SYRINGE IVP PRN (21:35)
[2016-11-24] MEDS ORDERED: Naloxone 0.4 MG/ML INJ IVP PRN (21:35)
[2016-11-24] MEDS ORDERED: *HR* Morphine 2 MG/ML SYRINGE IVP PRN (21:35)
[2016-11-24] MEDS ORDERED: Promethazine 6.25 MG in 0.9 % Sodium Chloride 50 ML IVPB PRN (22:52)
[2016-11-25] MEDS: ceFAZolin 2,000 MG in D5% in Water 100 ML IVPB SCH ×2 (00:05→08:29)
[2016-11-25] MEDS: *HR* Enoxaparin 30 MG/0.3 ML SYRINGE SQ SCH ×2 (05:22→17:59)
[2016-11-25 06:00] LABS: Hematocrit 23.5 % (37.5-50.1); Hemoglobin 7.9 g/dL (12.9-16.9)
[2016-11-25] MEDS ORDERED: Furosemide 20 MG/2 ML VIAL IVP ONE (06:25)
--- NOTE | 2016-11-25 06:51 | Orthopedics Progress Note ---
Date of Encounter: 11/25/16 Time of Encounter: 06:51 Subjective Interval history: Patient was seen this morning doing well without complaints. Afebrile vital signs stable. Operative extremity: Neurovascularly intact Dressing clean dry and intact Calves nontender Assessment and plan: Continue with postoperative care Hematocrit 23 transfuse 2 units packed red blood cells Objective Vital signs: Vital Signs Temp Pulse Resp BP Pulse Ox 11/25/16 05:14 97.6 F 103 17 126/77 96 11/25/16 00:14 97.7 F 104 19 118/75 95 11/24/16 23:35 97.6 F 122 18 144/93 97 11/24/16 22:35 97.6 F 119 18 111/77 95 11/24/16 22:12 97.7 F 116 19 119/78 97 11/24/16 21:35 97.6 F 109 20 117/73 94 11/24/16 21:34 20 92 11/24/16 20:58 97.2 F L 94 20 117/80 93 11/24/16 20:48 97.2 F L 91 20 116/69 94 11/24/16 20:38 91 20 122/68 94 11/24/16 20:28 97 20 118/78 93 11/24/16 20:18 97.3 F L 90 24 140/79 96 11/24/16 15:00 97.7 F 84 16 115/64 94 11/24/16 12:31 92 11/24/16 11:32 98.4 F 101 16 142/87 92 Intake and Output 11/24/16 11/24/16 11/25/16 15:59 23:59 07:59 Intake Total 100 / 100 Output Total 0 / 0 300 / 300 Balance 0 / 0 -200 / -200 Intake: IV Fluids 100 / 100 Ancef 2,000 MG In 100 / 100 Dextrose 5% 100 ML @ 200 mls/hr IVPB Q8HR OZZY Rx#: [id number] Output: Urine 0 / 0 300 / 300 Other: Meal NPO Stool Size Small # Voids 2 # Bowel Movements 1 Blood Glucose* 130 - Labs CBC & BMP: 11/25/16 05:51 11/24/16 04:13 Labs: Abnormal lab results RBC 2.22 M/mcL (4.19-5.50) L 11/24/16 04:13 Hgb 7.9 g/dL (12.9-16.9) L D 11/25/16 05:51 Hct 23.5 % (37.5-50.1) L 11/25/16 05:51 MCV 116.7 fL (83.0-100.0) H 11/24/16 04:13 MCH 39.2 pg (28.0-33.3) H 11/24/16 04:13 RDW 19.0 % (11.5-14.5) H 11/24/16 04:13 Large Platelets Present (Not Present) A 11/24/16 04:13 Poikilocytosis 1+ (Not Present) A 11/24/16 04:13 Anisocytosis 1+ (Not Present) A 11/24/16 04:13 Macrocytosis Present (Not Present) A 11/24/16 04:13 Ovalocytes 1+ (Not Present) A 11/24/16 04:13 PT 16.9 Seconds (9.4-12.1) H 11/24/16 13:35 Sodium 135 mEq/L (136-145) L 11/24/16 04:13 Glucose 127 mg/dL (70-99) H 11/24/16 04:13 POC Glucose 130 (58-89) H 11/24/16 11:30 Iron 60 mcg/dL (65-175) L 11/24/16 09:31 Ferritin 543 ng/ml (22-275) H 11/24/16 09:31 Consult Discharge Plan - Plan Referrals: Vivek Sosa DO [Primary Care Provider] -
[2016-11-25] MEDS: Aspirin Enteric Coated 81 MG Tablet PO SCH (08:30)
[2016-11-25] MEDS: Sennosides/Docusate Sodium TABLET PO SCH ×2 (08:30→21:03)
[2016-11-25] MEDS: Famotidine 20 MG TABLET PO SCH (08:30)
[2016-11-25] MEDS: Folic Acid 1 MG TABLET PO SCH (08:31)
--- NOTE | 2016-11-25 08:37 | ECHO - Doppler Report ---
Limited Echocardiogram Name: Jayesh Bland Date of Study: 11/24/2016 Date: 1930 Ht: 69.0 in Medical Record#: [id number] Age: 86 Wt: 198.0 lb Gender: Male BSA: 2.06 Order #: [id number] Location: [facility] Room #: [id number] Reading Physician: Barak Fox MD, [facility] Occupational Health Nurse: Neeru De La Fuente RDCS Ordering Physician: Alexa Maria CNP Primary Physician: Vivek Sosa DO Indications: Evaluate aortic valve Impressions: Limited study performed to further evaluate the aortic valve. A complete echocardiogram was performed the same day. Please see that report for all other findings. Moderately thickened/calcified aortic valve leaflets. Mild aortic stenosis. Normal transvalvular velocities/gradients, however, leaflet motion appears restricted and calculated valve area is mildly reduced at 1.57 cm2. Mild aortic regurgitation. Findings: Study Quality * Limited study performed to further evaluate the aortic valve. A complete echocardiogram was performed the same day. Please see that report for all other findings. ECG Findings * Atrial fibrillation/flutter. Aortic Valve * Moderately thickened/calcified aortic valve leaflets. * Mild aortic stenosis. Normal transvalvular velocities/gradients, however, leaflet motion appears restricted and calculated valve area is mildly reduced at 1.57 cm2. * Mild aortic regurgitation. History Hypertension Family History of CAD History of CAD/PTCA Myocardial Infarction Coronary Artery Bypass Graft 11/24/2016 a Previous Echo was performed. Measurements: BP: 115/ 64 Aortic Valve Peak Hans:1.80 m/sec Peak Grad:14.00 mmHg Mean Grad:7.00 mmHg Valve Area:1.57 cm2 Updated by Barak Fox MD, [facility] on 11/25/2016 8:32:23 AM electronically signed on 11/25/2016 8:32:57 AM with status of Final
[2016-11-25] MEDS: LEVOBUNOLOL 0.5% LEFT EYE SCH ×2 (08:47→21:07)
[2016-11-25] MEDS ORDERED: Folic Acid 1 MG TABLET PO SCH (09:00)
--- NOTE | 2016-11-25 11:11 | Internal Med Progress Note ---
<Nicanor Britossica Angelicanaz Woo - Last Filed: 11/25/16 16:35> Date of Encounter: 11/25/16 Time of Encounter: 11:08 - Assessment and plan (1) Closed right hip fracture Current Visit: Yes Status: Acute Assessment and plan: 11/25/16 Patient s/p day#1 fixation of right hip fracture Patient doing well today Up to chair this morning No complaint of pain Continue recommendations per ortho 11/24/16 [facility] hip demonstrated acute nondisplaced, non angulated hairline fracture through the low right femoral neck Patient currently NPO and pending surgical evaluation per ortho Orthopedics team has been consulted We appreciate their evaluation and treatment of this patient Qualifiers: Encounter type: initial encounter Qualified Code(s): S72.001A - Fracture of unspecified part of neck of right femur, initial encounter for closed fracture (2) Anemia due to acute blood loss Current Visit: Yes Status: Acute Assessment and plan: Hb dropped from 8.7 pre-operatively to 7.9 post-operatively Anemia is multifactorial and secondary to iron deficiency as well as blood loss Patient has been transfused 1u pRBCs We will continue to monitor Hb (3) Afib Current Visit: Yes Status: Chronic Assessment and plan: Patient is currently being rate-controlled with Lopressor 12.5mg BID Coumadin will be restarted today Continue to monitor INR Qualifiers: Atrial fibrillation type: chronic Qualified Code(s): I48.2 - Chronic atrial fibrillation (4) Macrocytic anemia Current Visit: Yes Status: Acute Assessment and plan: Patient has Hb of 8.7 with increased MCV Patient has increased RDW, therefore he may have mixed anemia Patient reports that he takes Vitamin B12 over the counter Patient has evidence of iron-deficiency anemia Folate and B12 levels are normal. Therefore, other causes of macrocytic anemia will need to be investigated. 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 transplanted heart: [place] heart Associated angina: without angina Qualified Code(s): I25.10 - Atherosclerotic heart disease of [place] coronary artery without angina pectoris (6) COPD (chronic obstructive pulmonary disease) Current Visit: Yes Status: Acute Qualifiers: COPD type: unspecified COPD Qualified Code(s): J44.9 - Chronic obstructive pulmonary disease, unspecified (7) Pulmonary hypertension Current Visit: Yes Status: Acute Assessment and plan: ECHO 11/24/16 with mild pulmonary hypertension, RVSP 40mmHg (8) Aortic stenosis, mild Current Visit: Yes Status: Acute Assessment and plan: ECHO 11/24/16 with mild , normal transvalvular velocities/gradients, calculated valve area mildly reduced 1.57cm2 (9) DVT prophylaxis Current Visit: Yes Status: Acute Assessment and plan: Lovenox SQ q12 hours - Subjective Interval history: 11/25/16 Patient sitting in chair at bedside during patient interview. Patient had overnight event of reported afib with RVR. He was given Lopressor 12.5mg BID and Labetalol prn. Heart rate in 90s this morning. 11/24/16 Patient presented to hospital 1 day ago for fall resulting in closed right hip fracture. Patient states that he fell while dining at [employer]. Patient was helped to his car by restaurant employee. He drove home, but once home was unable to get out of his car. Patient's son was able to extract patient from the car. Ambulance was called. Patient was found to have closed right hip fracture. Patient admits some right-sided hip pain at this time. He also complains that he has not had a bowel movement in 2 days. Otherwise, patient has no other complaints. - Constitutional Vitals: Temp Pulse Resp BP Pulse Ox 98.1 F 99 16 121/73 98 11/25/16 07:23 11/25/16 07:23 11/25/16 07:23 11/25/16 07:23 11/25/16 07:23 General appearance: Present: A&O X 3, no acute distress, underweight, answers questions appropriately - Head Head exam: Present: atraumatic, normocephalic - Eye Eye exam: Present: EOMI, sclera anicteric Additional comments: Pale conjunctiva Sclera with yellow hue - Neck Neck exam general surgery: Present: full ROM, supple, trachea midline. Absent: lymphadenopathy, thyromegaly Additional comments: No carotid bruit - Respiratory Respiratory exam: Present: CTAB. Absent: accessory muscle use, rales, rhonchi, wheezes - Cardiovascular Cardiovascular exam: Present: irregular rhythm (regularly irregular), +S1, +S2, systolic murmur. Absent: diastolic murmur, gallop, rubs - GI/Abdominal GI/Abdominal exam: Present: normal bowel sounds, soft, no peritoneal signs. Absent: distended, tenderness - Extremities Exam Extremities exam: Present: warm, radial pulses palpable and symetrical. Absent : calf tenderness, cyanotic, pedal edema Additional comments: Right lateral proximal leg with dressings in place. Most proximal dressing with scant sanguinous drainage. No ecchymosis or hematoma present to anterior or lateral leg. - Neurological Exam Neurological exam: Present: CN II-XII intact, oriented X3, no focal deficits. Absent: facial droop, speech deficit - Skin Skin exam: Present: dry, intact Internal Medicine: Result - Labs CBC & Chem 7: 11/25/16 05:51 11/24/16 04:13 Labs: Short CBC 11/24/16 11/25/16 Range/Units 13:35 05:51 Hgb 9.4 L 7.9 L D (12.9-16.9) g/dL Hct 27.7 L 23.5 L (37.5-50.1) % - ABG Interpretation ABG results: PT/INR, D-dimer PT 16.9 Seconds (9.4-12.1) H 11/24/16 13:35 - Impressions Impressions Fluoroscopy 11/24/16 19:50 IMPRESSION: Intraprocedural fluoroscopic spot images as above. See separate procedure report for more information. D/ / Ramos Lamb MD / Ramos Lamb MD Interpreting Provider: Ramos Lamb MD Hip X-Ray 11/24/16 19:50 IMPRESSION: Status post ORIF of the right femoral neck fracture with no evidence for immediate postoperative complication. D/ / Ramos Lamb MD / Ramos Lamb MD Interpreting Provider: Ramos Lamb MD - VTE Documentation of Mechanical Device: Venous foot pump, device Consult Discharge Plan - Plan Referrals: Vivek Sosa DO [Primary Care Provider] - <Jarrod Mcgregor - Last Filed: 11/25/16 17:37> Date of Encounter: 11/25/16 - Constitutional Vitals: Temp Pulse Resp BP Pulse Ox 97.4 F L 84 16 100/62 97 11/25/16 14:42 11/25/16 14:42 11/25/16 14:42 11/25/16 14:42 11/25/16 14:42 Internal Medicine: Result - Labs CBC & Chem 7: 11/25/16 05:51 11/24/16 04:13 Labs: Short CBC 11/25/16 Range/Units 05:51 Hgb 7.9 L D (12.9-16.9) g/dL Hct 23.5 L (37.5-50.1) % - ABG Interpretation ABG results: PT/INR, D-dimer PT 16.9 Seconds (9.4-12.1) H 11/24/16 13:35 - Impressions Impressions Fluoroscopy 11/24/16 19:50 IMPRESSION: Intraprocedural fluoroscopic spot images as above. See separate procedure report for more information. D/ / Ramos Lamb MD / Ramos Lamb MD Interpreting Provider: Ramos Lamb MD Hip X-Ray 11/24/16 19:50 IMPRESSION: Status post ORIF of the right femoral neck fracture with no evidence for immediate postoperative complication. D/ / Ramos Lamb MD / Ramos Lamb MD Interpreting Provider: Ramos Lamb MD - Attending Attestation I examined this patient and my medical decision-making was reviewed with the Resident Physician, Dr. Lindy Brito. I agree with the documented findings, disposition and treatment plan as described except to the extent set forth below. He is in no acute distress awake alert oriented 3. Heart irregularly irregular S1 and S2 with a systolic murmur. Lungs clear. Abdomen soft. Plan: Continue continue with postop recovery. Oral metoprolol twice a day start Coumadin. Pharmacy to dose. Check INR in the morning.
[2016-11-25] MEDS ORDERED: 0.9 % Sodium Chloride 250 ML ONE (11:15)
[2016-11-25] MEDS: *HR* HYDROcodone/Acet 5/325 mg TABLET PO PRN (14:56)
[2016-11-25] MEDS: 0.9 % Sodium Chloride 250 ML IVC SCH (16:29)
[2016-11-25 17:33] LABS: INR 1.7; Prothrombin Time 18.2 Seconds (9.4-12.1)
[2016-11-25] MEDS: *HR* Warfarin 2 MG TABLET PO SCH (17:59)
[2016-11-25] MEDS ORDERED: Warfarin perPT PO PRN (18:00)
[2016-11-25] MEDS ORDERED: *HR* Warfarin 1 MG TABLET PO SCH (18:00)
[2016-11-25 21:01] LABS: Hematocrit 27.1 % (37.5-50.1); Hemoglobin 9.1 g/dL (12.9-16.9)
[2016-11-26 05:28] LABS: INR 1.6; Prothrombin Time 17.6 Seconds (9.4-12.1)
[2016-11-26 05:46] LABS: Alanine Aminotransferase 7 Units/L (0-55); Albumin 3.1 g/dL (3.5-5.0); Albumin/Globulin Ratio 1.2 (1.1-2.2); Alkaline Phosphatase 38 Units/L (38-126); Aspartate Amino Transferase 17 Units/L (5-34); BUN/Creatinine Ratio 26 (6-26); Bilirubin,Total 2.1 mg/dL (0.2-1.2); Blood Urea Nitrogen 30 mg/dL (8-26); Calcium 8.6 mg/dL (8.6-10.8); Carbon Dioxide 28 mEq/L (19-29); Chloride 102 mEq/L (98-109); Globulin 2.5 g/dL (2.4-3.5); Glucose 120 mg/dL (70-99); Osmolality,Calculated 289 (280-300); Sodium 136 mEq/L (136-145); Total Protein 5.6 g/dL (6.0-8.3); eGFR For African Americans > 60 (> 60); eGFR For Non-African Americans 59 (> 60)
[2016-11-26] MEDS: *HR* Enoxaparin 30 MG/0.3 ML SYRINGE SQ SCH ×2 (05:49→17:57)
[2016-11-26 06:46] LABS: Basophils % 0.6 %; Eosinophils % 0.1 %; Hematocrit 27.4 % (37.5-50.1); Hemoglobin 9.5 g/dL (12.9-16.9); Immature Granulocytes % 3.3 % (0-4); Immature Platelets 13.3 % (1.1-6.1); Lymphocytes # 1.7 K/mcL (0.6-4.6); Lymphocytes % 24.6 %; Mean Corpuscular HGB Conc 34.7 g/dL (31.6-35.5); Mean Corpuscular Hemoglobin 36.4 pg (28.0-33.3); Mean Platelet Volume 12.4 fL (9.4-12.4); Monocytes % 14.6 %; Neutrophils # 3.9 K/mcL (1.6-8.9); Nucleated Red Blood Cells 0.6 /100 WBC (0); Platelet Count 119 K/mcL (140-400); Red Blood Count 2.61 M/mcL (4.19-5.50); Segmented Neutrophils % 56.8 %
[2016-11-26 07:17] LABS: Anisocytosis 3+ (Not Present); Platelet Estimate Decreased (Normal)
[2016-11-26 07:18] LABS: Macrocytosis Present (Not Present); Ovalocytes 1+ (Not Present); Polychromasia 2+ (Not Present)
--- NOTE | 2016-11-26 08:07 | Orthopedics Progress Note ---
Date of Encounter: 11/26/16 Time of Encounter: 08:06 Subjective Interval history: Patient was seen this morning doing well without complaints. Afebrile vital signs stable. Operative extremity: Neurovascularly intact Dressing clean dry and intact Calves nontender Assessment and plan: Continue with postoperative care sTable for discharge Objective Vital signs: Vital Signs Temp Pulse Resp BP Pulse Ox 11/26/16 07:44 97.9 F 50 16 144/78 98 11/26/16 00:03 97.8 F 62 16 147/76 96 11/25/16 19:35 97.6 F 68 16 102/67 11/25/16 19:28 97.6 F 68 16 102/67 99 11/25/16 16:40 97.6 F 82 15 110/69 99 11/25/16 16:02 97.5 F L 68 14 107/66 99 11/25/16 15:44 97.5 F L 93 14 112/54 95 11/25/16 14:42 97.4 F L 84 16 100/62 97 11/25/16 12:00 97.5 F L 83 16 102/62 96 11/25/16 11:15 97.5 F L 62 16 101/64 97 Intake and Output 11/25/16 11/26/16 11/26/16 23:59 07:59 15:59 Intake Total 1048 / 1048 125 / 125 Output Total 400 / 400 Balance 1048 / 1048 -275 / -275 Intake: Oral 750 / 750 125 / 125 Blood Product 298 / 298 Rbcs Leuko Poor As-1 298 / 298 Unit [id number] Output: Urine 400 / 400 Other: Meal Dinner Percent of Meal Consumed 100% - Labs CBC & BMP: 11/26/16 06:28 11/26/16 04:49 Labs: Abnormal lab results RBC 2.61 M/mcL (4.19-5.50) L 11/26/16 06:28 Hgb 9.5 g/dL (12.9-16.9) L 11/26/16 06:28 Hct 27.4 % (37.5-50.1) L 11/26/16 06:28 MCV 105.0 fL (83.0-100.0) H D 11/26/16 06:28 MCH 36.4 pg (28.0-33.3) H 11/26/16 06:28 Plt Count 119 K/mcL (140-400) L 11/26/16 06:28 Nucleated RBCs/100 WBC 0.6 /100 WBC (0) H 11/26/16 06:28 Platelet Estimate Decreased (Normal) L 11/26/16 06:28 Large Platelets Present (Not Present) A 11/24/16 04:13 Immature Plt Fraction 13.3 % (1.1-6.1) H 11/26/16 06:28 Polychromasia 2+ (Not Present) A 11/26/16 06:28 Poikilocytosis 1+ (Not Present) A 11/24/16 04:13 Anisocytosis 3+ (Not Present) A 11/26/16 06:28 Macrocytosis Present (Not Present) A 11/26/16 06:28 Ovalocytes 1+ (Not Present) A 11/26/16 06:28 PT 17.6 Seconds (9.4-12.1) H 11/26/16 04:49 BUN 30 mg/dL (8-26) H 11/26/16 04:49 Est GFR (Non-Af Amer) 59 (> 60) L 11/26/16 04:49 Glucose 120 mg/dL (70-99) H 11/26/16 04:49 POC Glucose 130 (58-89) H 11/24/16 11:30 Iron 60 mcg/dL (65-175) L 11/24/16 09:31 Ferritin 543 ng/ml (22-275) H 11/24/16 09:31 Total Bilirubin 2.1 mg/dL (0.2-1.2) H 11/26/16 04:49 Serum Total Protein 5.6 g/dL (6.0-8.3) L 11/26/16 04:49 Albumin 3.1 g/dL (3.5-5.0) L 11/26/16 04:49 - VTE Documentation of Mechanical Device: Venous foot pump, device Consult Discharge Plan - Plan Referrals: Vivek Sosa DO [Primary Care Provider] -
[2016-11-26] MEDS: Aspirin Enteric Coated 81 MG Tablet PO SCH (08:25)
[2016-11-26] MEDS: Sennosides/Docusate Sodium TABLET PO SCH ×2 (08:25→21:12)
[2016-11-26] MEDS: Folic Acid 1 MG TABLET PO SCH (08:25)
[2016-11-26] MEDS: LEVOBUNOLOL 0.5% LEFT EYE SCH ×2 (08:26→21:12)
[2016-11-26] MEDS: Famotidine 20 MG TABLET PO SCH (08:26)
--- NOTE | 2016-11-26 10:05 | Internal Med Progress Note ---
<DarylLindy Angelicanaz Woo - Last Filed: 11/26/16 10:02> Date of Encounter: 11/26/16 Time of Encounter: 09:30 - Assessment and plan (1) Closed right hip fracture Current Visit: Yes Status: Acute Assessment and plan: 11/26/16 Patient is meeting post-operative milestones We are awaiting word from [facility] as to when patient will be accepted for rehabilitation Continue pain management 11/25/16 Patient s/p day#1 fixation of right hip fracture Patient doing well today Up to chair this morning No complaint of pain Continue recommendations per ortho 11/24/16 Patient presented to hospital with fall at [facility] CT of right hip demonstrated acute nondisplaced, non angulated hairline fracture through the low right femoral neck Patient currently NPO and pending surgical evaluation per ortho Orthopedics team has been consulted We appreciate their evaluation and treatment of this patient Qualifiers: Encounter type: initial encounter Qualified Code(s): S72.001A - Fracture of unspecified part of neck of right femur, initial encounter for closed fracture (2) Anemia due to acute blood loss Current Visit: Yes Status: Acute Assessment and plan: Hb dropped from 8.7 pre-operatively to 7.9 post-operatively Hb today is 9.5 following 2 units RBCs yesterday Anemia is multifactorial and secondary to iron deficiency as well as blood loss We will continue to monitor Hb (3) Afib Current Visit: Yes Status: Chronic Assessment and plan: Patient is currently being rate-controlled with Lopressor 12.5mg BID Coumadin was restarted yesterday Continue to monitor INR INR today 1.6 Qualifiers: Atrial fibrillation type: chronic Qualified Code(s): I48.2 - Chronic atrial fibrillation (4) Macrocytic anemia Current Visit: Yes Status: Acute Assessment and plan: Patient has low Hb with increased MCV Patient has increased RDW, therefore he may have mixed anemia Patient reports that he takes Vitamin B12 over the counter Patient has evidence of iron-deficiency anemia Folate and B12 levels are normal. Therefore, other causes of macrocytic anemia will need to be investigated. 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 transplanted heart: [place] heart Associated angina: without angina Qualified Code(s): I25.10 - Atherosclerotic heart disease of [place] coronary artery without angina pectoris (6) COPD (chronic obstructive pulmonary disease) Current Visit: Yes Status: Acute Assessment and plan: Stable. No wheezing. Qualifiers: COPD type: unspecified COPD Qualified Code(s): J44.9 - Chronic obstructive pulmonary disease, unspecified (7) Pulmonary hypertension Current Visit: Yes Status: Acute Assessment and plan: ECHO 11/24/16 with mild pulmonary hypertension, RVSP 40mmHg (8) Aortic stenosis, mild Current Visit: Yes Status: Acute Assessment and plan: ECHO 11/24/16 with mild , normal transvalvular velocities/gradients, calculated valve area mildly reduced 1.57cm2 (9) DVT prophylaxis Current Visit: Yes Status: Acute Assessment and plan: Lovenox SQ q12 hours - Subjective Interval history: 11/26/16 Patient sitting in bed at time of interview. Patient is complaining of right hip pain with movement. He is preparing for PT/OT in the next few minutes. Denies chest pain, dyspnea, problems moving bowels. He states that he feels the same after receiving transfusion as he did prior. 11/25/16 Patient sitting in chair at bedside during patient interview. Patient had overnight event of reported afib with RVR. He was given Lopressor 12.5mg BID and Labetalol prn. Heart rate in 90s this morning. 11/24/16 Patient presented to hospital 1 day ago for fall resulting in closed right hip fracture. Patient states that he fell while dining at [employer]. Patient was helped to his car by restaurant employee. He drove home, but once home was unable to get out of his car. Patient's son was able to extract patient from the car. Ambulance was called. Patient was found to have closed right hip fracture. Patient admits some right-sided hip pain at this time. He also complains that he has not had a bowel movement in 2 days. Otherwise, patient has no other complaints. - Constitutional Vitals: Temp Pulse Resp BP Pulse Ox 97.9 F 50 16 144/78 98 11/26/16 07:44 11/26/16 07:44 11/26/16 07:44 11/26/16 07:44 11/26/16 07:44 General appearance: Present: A&O X 3, no acute distress, underweight, answers questions appropriately - Head Head exam: Present: atraumatic, normocephalic - Eye Eye exam: Present: EOMI, PERRL, conjuntiva pink, sclera anicteric - Neck Neck exam general surgery: Present: full ROM, supple, trachea midline - Respiratory Respiratory exam: Present: CTAB. Absent: accessory muscle use, rales, rhonchi, wheezes - Cardiovascular Cardiovascular exam: Present: irregular rhythm, +S1, +S2, systolic murmur. Absent: diastolic murmur, gallop, rubs - GI/Abdominal GI/Abdominal exam: Present: tenderness - Extremities Exam Extremities exam: Present: warm, radial pulses palpable and symetrical. Absent : calf tenderness, cyanotic, pedal edema Additional comments: Right lateral thigh with bandages in place. No ecchymosis or hematoma noted. - Neurological Exam Neurological exam: Present: CN II-XII intact, oriented X3, no focal deficits. Absent: facial droop, speech deficit - Skin Skin exam: Present: dry, intact Internal Medicine: Result - Labs CBC & Chem 7: 11/26/16 06:28 11/26/16 04:49 Labs: Short CBC 11/25/16 11/26/16 Range/Units 20:22 06:28 WBC 6.9 (4.3-11.1) K/mcL Hgb 9.1 L 9.5 L (12.9-16.9) g/dL Hct 27.1 L 27.4 L (37.5-50.1) % Plt Count 119 L (140-400) K/mcL Neutrophils # 3.9 (1.6-8.9) K/mcL BMP 11/26/16 04:49 Sodium 136 Potassium 4.0 Chloride 102 Carbon Dioxide 28 BUN 30 H Creatinine 1.17 Glucose 120 H Calcium 8.6 Liver Function 11/26/16 Range/Units 04:49 Total Bilirubin 2.1 H (0.2-1.2) mg/dL AST 17 (5-34) Units/L ALT 7 (0-55) Units/L Alkaline Phosphatase 38 (38-126) Units/L Albumin 3.1 L (3.5-5.0) g/dL - ABG Interpretation ABG results: PT/INR, D-dimer PT 17.6 Seconds (9.4-12.1) H 11/26/16 04:49 - VTE Documentation of Mechanical Device: Venous foot pump, device Consult Discharge Plan - Plan Referrals: Garcia Palomino MD [Partnered Physician] - 01/07/17 3:45 pm Janett Vera, PAC [Physician Business Services Representative] - 12/10/16 2:00 pm Vivek Sosa, [Primary Care Provider] - <Jarrod Mcgregor - Last Filed: 11/26/16 18:40> Date of Encounter: 11/26/16 - Constitutional Vitals: Temp Pulse Resp BP Pulse Ox 98.0 F 54 16 126/77 97 11/26/16 15:21 11/26/16 15:21 11/26/16 15:21 11/26/16 15:21 11/26/16 15:21 Internal Medicine: Result - Labs CBC & Chem 7: 11/26/16 06:28 11/26/16 04:49 Labs: Short CBC 11/25/16 11/26/16 Range/Units 20:22 06:28 WBC 6.9 (4.3-11.1) K/mcL Hgb 9.1 L 9.5 L (12.9-16.9) g/dL Hct 27.1 L 27.4 L (37.5-50.1) % Plt Count 119 L (140-400) K/mcL Neutrophils # 3.9 (1.6-8.9) K/mcL BMP 11/26/16 04:49 Sodium 136 Potassium 4.0 Chloride 102 Carbon Dioxide 28 BUN 30 H Creatinine 1.17 Glucose 120 H Calcium 8.6 Liver Function 11/26/16 Range/Units 04:49 Total Bilirubin 2.1 H (0.2-1.2) mg/dL AST 17 (5-34) Units/L ALT 7 (0-55) Units/L Alkaline Phosphatase 38 (38-126) Units/L Albumin 3.1 L (3.5-5.0) g/dL - ABG Interpretation ABG results: PT/INR, D-dimer PT 17.6 Seconds (9.4-12.1) H 11/26/16 04:49 - Attending Attestation I examined this patient and my medical decision-making was reviewed with the Resident Physician, Dr Brito. I agree with the documented findings, disposition and treatment plan as described except to the extent set forth below. Patient reports sharp stabbing right hip pain worse with mobilization and improved with pain medication. He is up in the chair awake alert oriented 3. In no acute distress. Heart is regular with normal S1 and S2. Lungs are clear. Plan: For constipation he was given senna Colace and milk of magnesia with no result, we will treat him with rectal Dulcolax. We will continue with Percocet for pain. Physical therapy for postop recovery status post right hip fracture repair. He has extensive medical comorbidities including CAD COPD, chronic respiratory failure and atrial fibrillation on Coumadin as well as prostate cancer. His at high risk for complications due to recent surgery and all the aforementioned comorbidities. We will resume his Coumadin for stroke prophylaxis and once he is therapeutic Reynaldo also serve as DVT prophylaxis.
[2016-11-26] MEDS ORDERED: MOM Conc 10 ML UD.LIQ PO ONE (11:08)
[2016-11-26] MEDS: *HR* HYDROcodone/Acet 5/325 mg TABLET PO PRN ×2 (11:09→17:56)
--- NOTE | 2016-11-26 14:24 | Electrocardiograph Report ---
[address] [place], [place] [address] Test Date: 2016-11-25 Pat Name: Jayesh Bland Department: 114 Room: [facility] Gender: M Infection Control Manager: JOSELIN : 1930 Requested By: Acosta Resendiz Order Number: [id number] Reading MD: Dylan Queen MD Measurements Intervals [place] Rate: 76 P: [place]: 0 QRS: 162 QRSD: 94 T: 56 QT: 392 QTc: 422 Interpretive Statements ATRIAL FLUTTER/TACHYCARDIA LATERAL MYOCARDIAL INFARCTION Electronically Signed On 11-26-2016 14:22:44 EDT by Dylan Queen MD
[2016-11-26] MEDS ORDERED: Bisacodyl 10 MG RECTAL SUPPOSITORY RC ONE (14:29)
[2016-11-26] MEDS: *HR* Warfarin 2 MG TABLET PO SCH (17:56)
[2016-11-27 03:20] LABS: Basophils % 0.4 %; Eosinophils % 0.2 %; Hematocrit 24.6 % (37.5-50.1); Hemoglobin 8.3 g/dL (12.9-16.9); Immature Granulocytes % 4.1 % (0-4); Lymphocytes # 1.3 K/mcL (0.6-4.6); Lymphocytes % 25.6 %; Mean Corpuscular HGB Conc 33.7 g/dL (31.6-35.5); Mean Corpuscular Hemoglobin 37.1 pg (28.0-33.3); Mean Corpuscular Volume 109.8 fL (83.0-100.0); Mean Platelet Volume 11.5 fL (9.4-12.4); Monocytes # 0.8 K/mcL (0.0-1.3); Monocytes % 15.5 %; Neutrophils # 2.8 K/mcL (1.6-8.9); Nucleated Red Blood Cells 0.8 /100 WBC (0); Platelet Count 160 K/mcL (140-400); Red Blood Count 2.24 M/mcL (4.19-5.50); Red Cell Distribution Width 22.9 % (11.5-14.5); Segmented Neutrophils % 54.2 %
[2016-11-27 03:22] LABS: INR 1.5; Prothrombin Time 16.5 Seconds (9.4-12.1)
[2016-11-27 03:38] LABS: BUN/Creatinine Ratio 33 (6-26); Blood Urea Nitrogen 32 mg/dL (8-26); Calcium 8.5 mg/dL (8.6-10.8); Carbon Dioxide 26 mEq/L (19-29); Chloride 102 mEq/L (98-109); Glucose 107 mg/dL (70-99); Osmolality,Calculated 287 (280-300); Potassium 4.4 mEq/L (3.5-4.5); Sodium 135 mEq/L (136-145); eGFR For African Americans > 60 (> 60); eGFR For Non-African Americans > 60 (> 60)
[2016-11-27 03:54] LABS: Anisocytosis 2+ (Not Present)
[2016-11-27 03:55] LABS: Platelet Estimate Normal (Normal)
[2016-11-27] MEDS: *HR* Enoxaparin 30 MG/0.3 ML SYRINGE SQ SCH (04:57)
[2016-11-27] MEDS: Folic Acid 1 MG TABLET PO SCH (09:03)
[2016-11-27] MEDS: Famotidine 20 MG TABLET PO SCH (09:03)
[2016-11-27] MEDS: LEVOBUNOLOL 0.5% LEFT EYE SCH (09:04)
[2016-11-27] MEDS: Aspirin Enteric Coated 81 MG Tablet PO SCH (09:04)
[2016-11-27] MEDS: Sennosides/Docusate Sodium TABLET PO SCH (09:04)
--- NOTE | 2016-11-27 10:34 | Discharge Summary ---
<Lindy Brito - Last Filed: 11/27/16 10:31> Date of Encounter: 11/27/16 Time of Encounter: 10:15 - Discharge Diagnosis (1) Closed right hip fracture Priority: Primary Status: Acute Qualifiers: Encounter type: initial encounter Qualified Code(s): S72.001A - Fracture of unspecified part of neck of right femur, initial encounter for closed fracture (2) Anemia due to acute blood loss Priority: Primary Status: Acute (3) Afib Priority: Secondary Status: Chronic Qualifiers: Atrial fibrillation type: chronic Qualified Code(s): I48.2 - Chronic atrial fibrillation (4) Macrocytic anemia Priority: Secondary Status: Acute (5) Coronary artery disease Priority: Secondary Status: Chronic Qualifiers: Coronary Disease-Associated Artery/Lesion type: unspecified vessel or lesion type [place] vs. transplanted heart: [place] heart Associated angina: without angina Qualified Code(s): I25.10 - Atherosclerotic heart disease of [place] coronary artery without angina pectoris (6) COPD (chronic obstructive pulmonary disease) Priority: Secondary Status: Chronic Qualifiers: COPD type: unspecified COPD Qualified Code(s): J44.9 - Chronic obstructive pulmonary disease, unspecified (7) Pulmonary hypertension Priority: Secondary Status: Chronic (8) Aortic stenosis, mild Priority: Secondary Status: Chronic (9) DVT prophylaxis Priority: Secondary Status: Acute - Discharge Medications Prescriptions: HYDROcodone/Acet 5/325 mg [[place] 5-325 mg] 1 tab PO Q8HR PRN 14 Days PRN Reason: Moderate Pain 4-6 Ferrous Sulfate 325 mg PO DAILY@0800 #30 tablet Sennosides/Docusate Sodium [Senna Plus] 2 each PO BID #60 tablet Home Medications: Warfarin [Coumadin] 2 mg PO DAILY 11/23/16 [History] Levobunolol 0.5% 1 drop BOTH EYES BID 11/24/16 [History] Aspirin 81 mg PO DAILY 11/25/16 [History] Folic Acid 1 mg PO DAILY 11/25/16 [History] Metoprolol XL (24 HR) Succ [Toprol Xl] 25 mg PO DAILY 11/25/16 [History] Rosuvastatin Calcium [Crestor] 5 mg PO DAILY 11/25/16 [History] Enoxaparin [Lovenox] 40 mg SQ DAILY #2 syr 11/27/16 [Rx] Ferrous Sulfate 325 mg PO DAILY@0800 #30 tablet 11/27/16 [Rx] HYDROcodone/Acet 5/325 mg [[place] 5-325 mg] 1 tab PO Q8HR PRN 14 Days 11/27/16 [ Rx] Sennosides/Docusate Sodium [Senna Plus] 2 each PO BID #60 tablet 11/27/16 [Rx] Allergies/Adverse Reactions: Allergies ciprofloxacin [From Cipro] Adverse Reaction (Verified 11/25/16 09:25) Nausea Oxycodone [From Percocet] Adverse Reaction (Verified 11/25/16 09:25) Nausea rofecoxib [From Vioxx] Adverse Reaction (Verified 11/25/16 09:25) Nausea Procedures/tests Complete & Pending: Procedures Performed prior 72 hours Category Date Time Status ECG 12 lead ECG [ECG] Routine Y 11/24/16 10:21 Completed ECG 12 lead ECG [ECG] Routine Y 11/24/16 11:28 Completed ECG 12 lead ECG [ECG] Routine Y 11/25/16 12:00 Completed EKG [ECG 12 lead ECG] [ECG] Stat Y 11/25/16 11:00 Completed EV echocardiogram Routine Y 11/24/16 10:20 Completed EV limited echocardiogram Stat Y 11/24/16 16:43 Completed Date of admission: 11/23/16 16:39 Primary care physician: Vivek Sosa, Consults: 11/24/16 21:35 Consult to Occupational Therapy [CONS] Routine Comment: Evaluate, develop and implement POC Reason for Consult: postop Consult to Orthopedic Navigator [CONS] [CONS] Routine Consult to Physical Therapy [CONS] Routine Comment: Evaluate, develop and implement POC Reason for Consult: wbat rle RT Post Op Consult [CONS] Routine Discharging clinician: Jarrod Mcgregor Anticipated date of discharge: 11/27/16 - Patient Status Disposition: Transfer Inpatient Rehab Fac Condition: Fair Functional capacity at discharge: wheelchair bound Overall status at discharge: patient is progressing back to baseline - Ambulatory Orders Ambulatory Orders: Prothrombin Time INR [COAG] Time Frame: 12/25/16, Facility: [facility], Location: Lab - Discharge Instructions Follow Up With: Garcia Palomino MD [Partnered Physician] - 01/07/17 3:45 pm Janett Vera PAC [Physician Learn To Swim Instructor] - 12/10/16 2:00 pm Vivek Sosa, DO [Primary Care Provider] - Additional Instructions: Discharge Instructions: Total Hip Replacement Please call [facility] ([phone]), your Primary Care Physician, or report to the Emergency Room if you have any of the following symptoms: Nausea, vomiting, fever greater that 101.5, swelling, chest pain, shortness of breath, increased pain/redness/drainage/odor for your incision site, numbness/ tingling, or any other concerning symptoms. ACTIVITY:Weight-bearing as tolerated for 8 weeks with hip dislocation precautions that physical therapy taught you. You may progress as tolerated under the guidance of your physical therapist. You do not need to sleep with a pillow between your legs. You can also seep on the operative side or on your stomach. MEDICATIONS: Upon discharge resume your home medications. Take all the medications as prescribed. Take a stool softener if taking narcotic pain medications. Stool softeners are only effective if you drink enough fluids. Drink 6-8 glass of water or fluids a day, unless this is not allowed for another health problem. Despite using stool softeners, if you haven't had a bowel movement in 3 days, please switch to a gentle laxative. Gentle laxatives are sold over the counter. You should have a bowel movement within 24 hours, if not call the office. You will be discharged from the hospital with a prescription for pain medication. You are encouraged to decrease the use of narcotic pain medication as tolerated. Should you require a refill, please call the office. [facility] prescribes narcotic pain medication for only 4-6 weeks after surgery. If you require pain medication beyond this time period, you may be referred to your Primary Care Physician or to the Pain Clinic for further evaluation. Plan ahead for refills on pain medication as many narcotics either need to be picked up at the office or mailed. It is best to call 48-72 hours in advance of needing a prescription refill so you don't run out of medication. To help control the post-operative pain, you may take NSAIDs (Aleve,Advil, Motrin, ibuprofen, naprosyn) or Tylenol as prescribed on the bottle in addition to the pain medication. ANTICOAGULATION (blood thinners): Continue your Aspirin, Lovenox or Coumadin as prescribed to help prevent a blood clot in the leg or in the lungs. As long as your incision remains dry and you tolerate the NSAIDs (Aleve, Advil, Motrin, Ibuprofen, Naprosyn), it is OK to use the NSAIDS while you are taking your anticoagulation medication. Should your incision start to drain, stop the NSAID and contact our office. Common symptoms of blood clot in the legs include: localized pain, swelling, calf tenderness, redness or discoloration of the skin. Blood clot in the lung symptoms include: shortness of breath, rapid pulse, sweating, and chest pain that worsens with deep breathing, coughing up blood, lightheadedness, feelings of anxiety. If you experience any of these symptoms notify your physician immediately, go to the emergency room, or if having trouble breathing, call 911. WOUND CARE: Leave the dressing on for 7 to 10days. You may change the dressing if it is saturated greater than 50%. Do not get the dressing wet at anytime. Wash your hands with antibacterial soap, rinse and dry prior to any wound care. If you have teresa the visiting nurse or rehab facility can remove the stapes 10-14 days after surgery and place steri-strips across the wound. Leave the steri-strips in place until they fall off on their own. You may let water from the shower run on top of the steri-strips. If you do not have a visiting nurse or rehab facility, you will need to return to the office at 10-14 days for the teresa to be removed. If you have itching or redness around the dressing call the office. FOLLOW-UP: Please follow up with your surgeon in the orthopedic clinic in 6 weeks from the day of surgery. If you have teresa that need to be removed, you will need to come back to the office in 10-14 days from the day of surgery. - Diet and Activity Activity: as per physical therapy Diet: low salt diet Hospital course: Mr. Bland is a 86 year old male with past medical history significant for CAD s /p CABG, afib, HTN, macrocytic anemia, iron-deficiency, COPD, prostate cancer, nephrolithiasis who presented to hospital for fall resulting in closed right hip fracture. Patient had right hip repair on 11/24/16. Patient had episode of afib RVR following surgery that required addition of Metoprolol to maintain rate -control. Patient had previously been prescribed Coumadin daily per Dr. Barak Fox, Outside Maintenance Worker in [place], [place]. However we discovered that patient had also been prescribed Xarelto 15mg po daily per Dr. Lucero Smith, Outside Maintenance Worker in [place], [place]. In the month of October, patient had not filled either script. Following surgery, patient received 2units RBCs. His Hb is 8.3 at this time. He was also found to have macrocytosis without evidence of B12 or folate deficiency. MMA, homocystiene, and peripheral smear were ordered but are pending at this time. We will continue coumadin at 2mg daily with monitoring of INR on Thursday and each week. Patient will follow- up with coumadin clinic for continued monitoring of his INR. Patient will be discharged on metoprolol, iron, colace, and pain medication. He has a follow- up with the orthopedics team on December 10, 2016. Patient is stable for discharge to rehabilitation facility at this time. - Time Spent with Patient Total time spent providing and/or coordinating discharge services: Greater than 30 minutes (45 minutes including time with patient and coordinating care) - Constitutional Vitals: Temp Pulse Resp BP Pulse Ox 98.0 F 84 18 122/69 100 11/27/16 06:40 11/27/16 06:40 11/27/16 06:40 11/27/16 06:40 11/27/16 06:40 General appearance: Present: A&O X 3, no acute distress, underweight, answers questions appropriately - Head Head exam: Present: atraumatic, normocephalic - Eye Eye exam: Present: EOMI, PERRL, conjuntiva pink Additional comments: sclera injected - Neck Neck exam general surgery: Present: full ROM, supple, trachea midline. Absent: lymphadenopathy - Respiratory Respiratory exam: Present: CTAB. Absent: accessory muscle use, rales, rhonchi, wheezes - Cardiovascular Cardiovascular exam: Present: irregular rhythm, +S1, +S2, systolic murmur. Absent: diastolic murmur, gallop, rubs - GI/Abdominal GI/Abdominal exam: Present: normal bowel sounds, soft, no peritoneal signs. Absent: distended, tenderness - Extremities Exam Extremities exam: Present: normal capillary refill, normal inspection, warm, radial pulses palpable and symetrical. Absent: calf tenderness, cyanotic, pedal edema Additional comments: Right lateral thigh with dressings in place, scant drainage Tenderness and swelling of right upper leg - Neurological Exam Neurological exam: Present: CN II-XII intact, oriented X3, no focal deficits. Absent: facial droop, speech deficit - Skin Skin exam: Present: dry, intact - Other Additional findings: Hip CT 11/24/16 07:56 IMPRESSION: Acute nondisplaced, non angulated hairline fracture through the low right femoral neck. 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 Note that the distal aorta was not included on this pelvic CT. D/ / Trevor Galindo MD / Trevor Galindo MD Interpreting Provider: Trevor Galindo MD Fluoroscopy 11/24/16 19:50 IMPRESSION: Intraprocedural fluoroscopic spot images as above. See separate procedure report for more information. D/ / Ramos Lamb MD / Ramos Lamb MD Interpreting Provider: Ramos Lamb MD Hip X-Ray 11/24/16 19:50 IMPRESSION: Status post ORIF of the right femoral neck fracture with no evidence for immediate postoperative complication. D/ / Ramos Lamb MD / Ramos Lamb MD Interpreting Provider: Ramos Lamb MD - VTE Documentation of Mechanical Device: Venous foot pump, device <Jarrod Mcgregor - Last Filed: 11/27/16 17:25> Date of Encounter: 11/27/16 Procedures/tests Complete & Pending: Procedures Performed prior 72 hours Category Date Time Status ECG 12 lead ECG [ECG] Routine Y 11/25/16 12:00 Completed EKG [ECG 12 lead ECG] [ECG] Stat Y 11/25/16 11:00 Completed EV limited echocardiogram Stat Y 11/24/16 16:43 Completed Date of admission: 11/23/16 16:39 Primary care physician: Vivek Sosa, Consults: 11/24/16 21:35 Consult to Occupational Therapy [CONS] Routine Comment: Evaluate, develop and implement POC Reason for Consult: postop Consult to Orthopedic Navigator [CONS] [CONS] Routine Consult to Physical Therapy [CONS] Routine Comment: Evaluate, develop and implement POC Reason for Consult: wbat rle RT Post Op Consult [CONS] Routine - Patient Status Functional capacity at discharge: uses cane/walker Overall status at discharge: patient is progressing back to baseline Hospital course: Mr. Bland is a 86 year old male - Time Spent with Patient Total time spent providing and/or coordinating discharge services: - Constitutional Vitals: Temp Pulse Resp BP Pulse Ox 97.7 F 68 18 124/72 100 11/27/16 10:54 11/27/16 10:54 11/27/16 10:54 11/27/16 10:54 11/27/16 10:54 - Attending Attestation I examined this patient and my medical decision-making was reviewed with the Resident Physician, Dr Lindy Brito. I agree with the documented findings, disposition and treatment plan as described except to the extent set forth below. Patient reports mild right hip pain. His postoperative day 3 after right hip open reduction internal fixation. He is in no acute distress. Heart is regular. Lungs are clear. Right lower extremity with mild edema and postoperative changes. Surgical dressing is in place. Plan: We will discharge the patient to rehabilitation. Oral analgesics. We will prescribe a bowel regimen. Will continue with Coumadin. I will provide 2 more days of prophylactic Lovenox 40 mg daily to start tomorrow to have a total of 5 days of overlap with Coumadin. I recommend checking INR on 12/01/2016 and stopping Lovenox if the INR is within the therapeutic range. I have spent 40 minutes coordinating this discharge today.
[2016-11-27 10:56] VITALS: BP 124/72
--- NOTE | 2016-11-27 11:32 | Physician Discharge Referral ---
ExtendedCare Referral Info Transfer To: [facility] for Rehab Provider in Charge: Dr. Jarrod Mcgregor MD Provider in Charge after Transfer: PCP Institutional Level of Care: Skilled - Diagnosis (1) Closed right hip fracture Priority: Primary Status: Acute (2) Anemia due to acute blood loss Priority: Primary Status: Acute (3) Afib Priority: Secondary Status: Chronic (4) Macrocytic anemia Priority: Secondary Status: Acute (5) Coronary artery disease Priority: Secondary Status: Chronic (6) COPD (chronic obstructive pulmonary disease) Priority: Secondary Status: Chronic (7) Pulmonary hypertension Priority: Secondary Status: Chronic (8) Aortic stenosis, mild Priority: Secondary Status: Chronic (9) DVT prophylaxis Priority: Secondary Status: Acute Prognosis: Good Aware of Diagnosis: Patient Aware of Prognosis: Patient - Transfer Medications Prescriptions: HYDROcodone/Acet 5/325 mg [[place] 5-325 mg] 1 tab PO Q8HR PRN 14 Days PRN Reason: Moderate Pain 4-6 Ferrous Sulfate 325 mg PO DAILY@0800 #30 tablet Sennosides/Docusate Sodium [Senna Plus] 2 each PO BID #60 tablet Home Medications: Warfarin [Coumadin] 2 mg PO DAILY 11/23/16 [History] Levobunolol 0.5% 1 drop BOTH EYES BID 11/24/16 [History] Aspirin 81 mg PO DAILY 11/25/16 [History] Folic Acid 1 mg PO DAILY 11/25/16 [History] Metoprolol XL (24 HR) Succ [Toprol XL] 25 mg PO DAILY 11/25/16 [History] Rosuvastatin Calcium [Crestor] 5 mg PO DAILY 11/25/16 [History] Ferrous Sulfate 325 mg PO DAILY@0800 #30 tablet 11/27/16 [Rx] HYDROcodone/Acet 5/325 mg [[place] 5-325 mg] 1 tab PO Q8HR PRN 14 Days 11/27/16 [ Rx] Sennosides/Docusate Sodium [Senna Plus] 2 each PO BID #60 tablet 11/27/16 [Rx] Allergies/Adverse Reactions: Allergies ciprofloxacin [From Cipro] Adverse Reaction (Verified 11/25/16 09:25) Nausea Oxycodone [From Percocet] Adverse Reaction (Verified 11/25/16 09:25) Nausea rofecoxib [From Vioxx] Adverse Reaction (Verified 11/25/16 09:25) Nausea - Respiratory Orders Smoking Cessation: Smoking cessation has been advised. For more information, call the [place] Tobacco Quit Line at 0-549-QULG-NOW. - Lab Orders Lab Orders: Other (include drug levels w/frequency) (INR to be checked on Thursday and of each week) - Mobility Orders Chair - Rehabiliation Orders Rehab Potential: Good Rehab Orders: ROM Exercises, Evaluation for Physical Therapy, Evaluation for Occupational Therapy - Diet Orders Cardiac CERTIFICATION: I certify that the transfer of the above named patient to an Extended Care Facility is necessary for the continuing treatment of the diagnosis listed. The above information is true and accurate reflection of patient's current condition. Confidential - Redisclosure prohibited without a patient's written consent.
[2016-11-27] MEDS: *HR* HYDROcodone/Acet 5/325 mg TABLET PO PRN (14:31)
[2016-11-27] MEDS ORDERED: *HR* Warfarin 4 MG TABLET PO ONE (18:00)
[2016-11-28] MEDS ORDERED: *HR* Warfarin 2 MG TABLET PO SCH (18:00)
== END 2016-11-27 14:36 | DRG 481 ==
LOC: 3ANU 16:39 → 3NENU 11-24 19:04
PROVIDERS: ADMIT Hospitalist; ATTEND Internal Medicine

== ENCOUNTER 2017-07-02 13:43 | Inpatient (IN) ==
[2017-07-02] MEDS ORDERED: Furosemide 40 MG/4 ML VIAL IVP ONE (14:37)
[2017-07-02 14:54] LABS: Basophils % 0.6 %; Eosinophils % 0.3 %; Hematocrit 23.2 % (37.5-50.1); Immature Granulocytes % 6.8 % (0-4); Lymphocytes # 0.7 K/mcL (0.6-4.6); Lymphocytes % 20.3 %; Mean Corpuscular HGB Conc 32.3 g/dL (31.6-35.5); Mean Corpuscular Hemoglobin 39.3 pg (28.0-33.3); Mean Corpuscular Volume 121.5 fL (83.0-100.0); Monocytes # 0.6 K/mcL (0.0-1.3); Monocytes % 16.9 %; Nucleated Red Blood Cells 1.1 /100 WBC (0); Platelet Count 288 K/mcL (140-400); Red Blood Count 1.91 M/mcL (4.19-5.50); Red Cell Distribution Width 29.2 % (11.5-14.5); Segmented Neutrophils % 55.1 %
[2017-07-02 14:57] LABS: Hemoglobin 7.5 g/dL (12.9-16.9)
[2017-07-02 15:06] LABS: BUN/Creatinine Ratio 42 (6-26); Blood Urea Nitrogen 45 mg/dL (8-26); Calcium 8.3 mg/dL (8.6-10.8); Carbon Dioxide 25 mEq/L (19-29); Chloride 106 mEq/L (98-109); Glucose 104 mg/dL (70-99); Osmolality,Calculated 300 (280-300); Potassium 3.9 mEq/L (3.5-4.5); Sodium 139 mEq/L (136-145); eGFR For African Americans > 60 (> 60); eGFR For Non-African Americans > 60 (> 60)
[2017-07-02 15:07] LABS: Bilirubin,Urine Negative (Negative); Blood,Urine Negative (Negative); Clarity,Urine Clear (Clear); Color,Urine Yellow (Yellow); Glucose,Urine (UA) Normal (Normal); Ketones,Urine Negative (Negative); Leukocyte Esterase,Urine Negative (Negative); Nitrite,Urine Negative (Negative); Protein,Urine Negative (Neg-Trace); Specific Gravity,Urine 1.013 (1.010-1.025); Urobilinogen,Urine Normal (Normal)
--- NOTE | 2017-07-02 15:26 | Emergency Department Note ---
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 Patient has been experiencing significant swelling over the past week. He is increased his Lasix 40 mg once to twice daily with minimal improvement. Last night patient was short of breath while at rest. He reports a recent blood transfusion roughly 2 weeks ago given high-dose steroids as well as a blood transfusion. He has only taken 2 of those doses of prednisone as a swelling has coincidentally increased dramatically. Patient denies any fever, cough, chest pain. He has no difficulty breathing at this moment. His oxygen saturation is within normal limits. He denies any pain with urination but he has a significant amount of swelling. No scrotal tenderness. Patient is circumcised and is still able to urinate. Pain Scale: 0 - Related Data Home Medications Medication Instructions Recorded Confirmed Aspirin 81 mg PO DAILY 11/25/16 07/02/17 Folic Acid 1 mg PO DAILY 11/25/16 07/02/17 Metoprolol XL (24 HR) Succ [Toprol 25 mg PO DAILY 11/25/16 07/02/17 Xl] Atorvastatin Calcium [Lipitor] 20 mg PO HS 06/05/17 07/02/17 Docusate Sodium [Stool Softener] 100 mg PO DAILY 06/05/17 07/02/17 Fluticasone Propionate Nasal 50 mcg NS BID PRN 06/05/17 07/02/17 [Flonase] Furosemide [Lasix] 40 mg PO DAILY 06/05/17 07/02/17 Loratadine [Allergy Relief] 10 mg PO DAILY PRN 06/05/17 07/02/17 Multivit-Min/FA/Lycopen/Lutein 1 each PO DAILY 06/05/17 07/02/17 [Centrum Silver Tablet] Potassium Chloride [K-Tab ER] 20 meq PO DAILY 06/05/17 07/02/17 Rivaroxaban [Xarelto] 15 mg PO 1700 06/05/17 07/02/17 Chlorhexidine Gluconate [Peridex] 15 ml MM BID 07/02/17 07/02/17 Levobunolol 0.5% [Betagan] 1 drop BOTH EYES BID 07/02/17 07/02/17 Oxygen 2 l NS AD 07/02/17 07/02/17 Sennosides [Senna] 25.8 mg PO HS 07/02/17 07/02/17 Allergies Allergy/AdvReac Type Severity Reaction Status Date / Time ciprofloxacin [From Cipro] AdvReac Nausea Verified 06/23/17 15:33 Oxycodone [From Percocet] AdvReac Nausea Verified 06/23/17 15:33 rofecoxib [From Vioxx] AdvReac Nausea Verified 06/23/17 15:33 All systems ED: reviewed and negative except as stated. Review of Systems: As Per HPI Constitutional: Denies: fever, chills Cardiovascular: Reports: dyspnea on exertion, edema. Denies: chest pain Respiratory: Reports: cough, dyspnea Gastrointestinal: Denies: abdominal pain, nausea, vomiting Genitourinary: Reports: dysuria. Denies: urgency Musculoskeletal: Denies: back pain, neck pain Integumentary: Denies: rash, abrasion Neurological: Denies: headache, weakness Psychiatric: Denies: anxiety, depression Past Medical History - Past Medical History Attestation: Yes The following information was validated with the patient. 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) Psychiatric history: Reports: anxiety - Social History Smoking Status: Never smoker Smokeless Tobacco Status: No Alcohol use: Reports: none Drug use: Reports: none Physical Exam - General Limitations: no limitations General appearance: alert, in no apparent distress - Head Head exam: atraumatic, normocephalic, normal inspection - Eye Eye exam: Present: normal appearance, PERRL, EOMI, scleral icterus - ENT ENT exam: normal exam, normal oropharynx, mucous membranes moist - Neck Neck exam: Present: normal inspection, full ROM, trachea midline - Chest Chest inspection: Present: normal inspection, symmetric chest wall rise. Absent : tenderness - Respiratory Respiratory exam: Present: normal lung sounds bilaterally. Absent: respiratory distress, wheezes - Expanded Respiratory Exam Location: rhonchi: Right, Left - Cardiovascular Cardiovascular exam: Present: regular rate, normal rhythm, normal heart sounds. Absent: systolic murmur, diastolic murmur - Abdominal Exam Abdominal exam: Present: soft, Non-Tender, normal bowel sounds. Absent: tenderness, distention, guarding, rebound, rigidity - Rectal Exam Actuary present during exam: Yes Rectal exam: Present: normal inspection, normal rectal tone, heme (+) stool. Absent: black stool, bloody stool, hemorrhoids - Male exam: Present: circumcised, penile swelling, scrotal swelling, other (No crepitus or necrotic tissue). Absent: phimosis, paraphimosis, perineal induration, balanitis, ulcerations, testicular tenderness - Extremities Exam Extremities exam: Present: full ROM, pedal edema (+3 up to thighs). Absent: calf tenderness - Neurological Exam Neurological exam: Present: alert, oriented X3 - Skin Skin exam: Present: warm, dry, intact, pallor. Absent: cyanosis, diaphoresis Course Course Narrative: 87-year-old male presents with significant edema to bilateral legs up to the scrotum. Daughter reports he also has some dyspnea associated. Concern for acute exacerbation of congestive heart failure contributing to the symptoms workup initiated. Patient still able to urinate and has been instructed to increases Lasix buys primary care physician. He will give additional 40 mg Lasix here. Disposition pending workup. - Reevaluation(s) Reevaluation #1: After 40 mg IV Lasix patient has had good urine output >600 mL. He continues to have significant swelling that is improving. He remains 98% on room air no respiratory distress. Findings are consistent with a hemolytic anemia as his lactate dehydrogenase 558 is significantly elevated as well as indirect bilirubinemia. Patient appears pale with some sclera ictera. He required a blood transfusion 2 units roughly 2 weeks ago. His hemoglobin stable at 7.5. He denies any abdominal tenderness. Oddly his urinalysis does not show signs significant for hemolysis. He has a elevated BUN creatinine ratio of 40. A rectal exam was performed and positive stool hemoccult. Chest x-ray consistent with pulmonary edema from congestive heart failure. His BNP significantly elevated 1300. Patient will benefit admission for diuresis and possible gastroenterology/hmeatology consultation for hemolyic anemia. At this time he does not appear to require emergent blood transfusion as hgb is 7.5. Impression is hemolytic anemia, peripheral edema, acute exacerbation of congestive heart failure. Patient is in agreement with admission for further treatment and management. - Consultations Consultation #1: Spoke with on-call hospitalist yanely Medina to admit for hemolytic anemia, peripheral edema, acute exacerbation of CHF. Agree that due to his symptoms and despite his hemoglobin at 7.5 a blood transfusion would be beneficial. Patient consented to blood transfusion with nurse and daughter at bedside. He is capable of making medical decisions. He understands the risks and benefits. Vital Signs Temperature 97.3 F L 07/02/17 14:32 Pulse Rate 101 07/02/17 14:32 Respiratory Rate 18 07/02/17 14:32 Blood Pressure 94/66 07/02/17 14:32 O2 Sat by Pulse Oximetry 100 07/02/17 14:32 Temperature 98.3 F 07/02/17 18:27 Pulse Rate 105 07/02/17 18:27 Respiratory Rate 18 07/02/17 18:27 Blood Pressure 94/76 07/02/17 18:27 O2 Sat by Pulse Oximetry 100 07/02/17 18:27 Oxygen Delivery Oxygen Delivery Room Air Medical Decision Making - MDM Narrative Medical decision making narrative: Patient was discussed with my attending physician who agrees with ED management and final disposition. They independently evaluated the patient. Please refer to their attestation to this encounter for additional information. This note was generated by [employer] voice recognition software and as a result grammatical or spelling errors may occur using this program. - Medical Records Medical records reviewed: Yes I reviewed the patient's medical records. - Lab Data Lab results reviewed: Yes I reviewed the patient's lab results. Result diagrams: 07/02/17 20:33 07/02/17 14:46 Lab Results 07/02/17 07/02/17 07/02/17 Range/Units 14:46 14:46 14:46 WBC 3.6 L (4.3-11.1) K/mcL RBC 1.91 L (4.19-5.50) M/mcL Hgb 7.5 L (12.9-16.9) g/dL Hct 23.2 L (37.5-50.1) % MCV 121.5 H (83.0-100.0) fL MCH 39.3 H (28.0-33.3) pg MCHC 32.3 (31.6-35.5) g/dL RDW 29.2 H (11.5-14.5) % Plt Count 288 (140-400) K/mcL MPV 11.0 (9.4-12.4) fL Immature Gran % 6.8 H (0-4) % Seg Neutrophils % 55.1 % Lymphocytes % 20.3 % Monocytes % 16.9 % Eosinophils % 0.3 % Basophils % 0.6 % Neutrophils # 2.0 (1.6-8.9) K/mcL Lymphocytes # 0.7 (0.6-4.6) K/mcL Monocytes # 0.6 (0.0-1.3) K/mcL Eosinophils # 0.0 (0.0-0.6) K/mcL Basophils # 0.0 (0.0-0.2) K/mcL Nucleated RBCs/100 WBC 1.1 H (0) /100 WBC Platelet Estimate Normal (Normal) Hypochromasia Present A (Not Present) Anisocytosis 2+ A (Not Present) Macrocytosis Present A (Not Present) Tear Drop Cells 1+ A (Not Present) Ovalocytes 1+ A (Not Present) Sodium 139 (136-145) mEq/L Potassium 3.9 (3.5-4.5) mEq/L Chloride 106 (98-109) mEq/L Carbon Dioxide 25 (19-29) mEq/L BUN 45 H (8-26) mg/dL Creatinine 1.06 (0.72-1.25) mg/dL Est GFR ( Amer) > 60 (> 60) Est GFR (Non-Af Amer) > 60 (> 60) BUN/Creatinine Ratio 42 H (6-26) Glucose 104 H (70-99) mg/dL Calculated Osmolality 300 (280-300) Calcium 8.3 L (8.6-10.8) mg/dL Total Bilirubin 2.9 H (0.2-1.2) mg/dL Direct Bilirubin 0.6 H (0.0-0.5) mg/dL Indirect Bilirubin 2.3 H (0.0-1.2) mg/dL AST 40 H (5-34) Units/L ALT 52 (0-55) Units/L Alkaline Phosphatase 75 (38-126) Units/L Lactate Dehydrogenase 558 H (159-327) Units/L B-Natriuretic Peptide 1316 H (0-100) pg/mL Serum Total Protein 5.9 L (6.0-8.3) g/dL Albumin 3.2 L (3.5-5.0) g/dL Globulin 2.7 (2.4-3.5) g/dL Albumin/Globulin Ratio 1.2 (1.1-2.2) Urine Color (Yellow) Urine Clarity (Clear) Urine pH (5.0-8.0) pH Units Ur Specific [place] (1.010-1.025) Urine Protein (Neg-Trace) mg/dL Urine Glucose (UA) (Normal) mg/dL Urine Ketones (Negative) mg/dL Urine Blood (Negative) Urine Nitrite (Negative) Urine Bilirubin (Negative) Urine Urobilinogen (Normal) mg/dL Ur Leukocyte Esterase (Negative) Ur Culture Indicated? (NO) Stool Occult Blood (Negative) Blood Type Antibody Screen Crossmatch 07/02/17 07/02/17 07/02/17 Range/Units 14:47 16:22 17:15 WBC (4.3-11.1) K/mcL RBC (4.19-5.50) M/mcL Hgb (12.9-16.9) g/dL Hct (37.5-50.1) % MCV (83.0-100.0) fL MCH (28.0-33.3) pg MCHC (31.6-35.5) g/dL RDW (11.5-14.5) % Plt Count (140-400) K/mcL MPV (9.4-12.4) fL Immature Gran % (0-4) % Seg Neutrophils % % Lymphocytes % % Monocytes % % Eosinophils % % Basophils % % Neutrophils # (1.6-8.9) K/mcL Lymphocytes # (0.6-4.6) K/mcL Monocytes # (0.0-1.3) K/mcL Eosinophils # (0.0-0.6) K/mcL Basophils # (0.0-0.2) K/mcL Nucleated RBCs/100 WBC (0) /100 WBC Platelet Estimate (Normal) Hypochromasia (Not Present) Anisocytosis (Not Present) Macrocytosis (Not Present) Tear Drop Cells (Not Present) Ovalocytes (Not Present) Sodium (136-145) mEq/L Potassium (3.5-4.5) mEq/L Chloride (98-109) mEq/L Carbon Dioxide (19-29) mEq/L BUN (8-26) mg/dL Creatinine (0.72-1.25) mg/dL Est GFR ( Amer) (> 60) Est GFR (Non-Af Amer) (> 60) BUN/Creatinine Ratio (6-26) Glucose (70-99) mg/dL Calculated Osmolality (280-300) Calcium (8.6-10.8) mg/dL Total Bilirubin (0.2-1.2) mg/dL Direct Bilirubin (0.0-0.5) mg/dL Indirect Bilirubin (0.0-1.2) mg/dL AST (5-34) Units/L ALT (0-55) Units/L Alkaline Phosphatase (38-126) Units/L Lactate Dehydrogenase (159-327) Units/L B-Natriuretic Peptide (0-100) pg/mL Serum Total Protein (6.0-8.3) g/dL Albumin (3.5-5.0) g/dL Globulin (2.4-3.5) g/dL Albumin/Globulin Ratio (1.1-2.2) Urine Color Yellow (Yellow) Urine Clarity Clear (Clear) Urine pH 6.0 (5.0-8.0) pH Units Ur Specific [place] 1.013 (1.010-1.025) Urine Protein Negative (Neg-Trace) mg/dL Urine Glucose (UA) Normal (Normal) mg/dL Urine Ketones Negative (Negative) mg/dL Urine Blood Negative (Negative) Urine Nitrite Negative (Negative) Urine Bilirubin Negative (Negative) Urine Urobilinogen Normal (Normal) mg/dL Ur Leukocyte Esterase Negative (Negative) Ur Culture Indicated? NO (NO) Stool Occult Blood Positive A (Negative) Blood Type O POSITIVE Antibody Screen NEGATIVE Crossmatch See Detail - Radiology Data Radiology results reviewed: Yes I reviewed the patient's radiology results. Chest X-Ray 07/02/17 14:37 IMPRESSION: Cardiomegaly with pulmonary edema and small pleural effusions compatible with CHF. D/ / Angeli Cruz MD / Angeli Cruz MD Interpreting Provider: Angeli Cruz MD Attestation Statement - Attestation Attestation: I examined this patient and my medical decision-making was reviewed with the Resident Physician. I agree with the documented findings, disposition and treatment plan as described except to the extent set forth below. Pt told he has hemolytic anemia. Is anemic again (recent transfusion), has elevated LDH and indirect hyperbilirubinemia (c/w hemolysis) but no blood in urine. Also has significant elevation of BUN:Cr ratio, but brown/heme negative stool, and is clinically volume overloaded with anasarca. Hemodynamically stable for admission.
[2017-07-02 16:11] LABS: Anisocytosis 2+ (Not Present); Hypochromasia Present (Not Present); Ovalocytes 1+ (Not Present); Platelet Estimate Normal (Normal); Tear Drop Cells 1+ (Not Present)
[2017-07-02 16:12] LABS: Macrocytosis Present (Not Present)
[2017-07-02 16:15] LABS: Alanine Aminotransferase 52 Units/L (0-55); Albumin 3.2 g/dL (3.5-5.0); Albumin/Globulin Ratio 1.2 (1.1-2.2); Alkaline Phosphatase 75 Units/L (38-126); Aspartate Amino Transferase 40 Units/L (5-34); Bilirubin,Direct 0.6 mg/dL (0.0-0.5); Bilirubin,Indirect 2.3 mg/dL (0.0-1.2); Bilirubin,Total 2.9 mg/dL (0.2-1.2); Globulin 2.7 g/dL (2.4-3.5); Total Protein 5.9 g/dL (6.0-8.3)
[2017-07-02 16:17] LABS: Lactate Dehydrogenase 558 Units/L (159-327)
[2017-07-02] MEDS ORDERED: Ondansetron 4 MG/2 ML VIAL IVP PRN (18:28)
[2017-07-02] MEDS ORDERED: Acetaminophen 325 MG TABLET PO PRN (18:28)
[2017-07-02] MEDS ORDERED: Naloxone 0.4 MG/ML INJ IVP PRN (18:28)
[2017-07-02] MEDS ORDERED: Fluticasone Propionate Nasal 50 MCG/SPRAY BOTTLE NS PRN (18:37)
[2017-07-02] MEDS ORDERED: Loratadine 10 MG TABLET PO PRN (18:37)
--- NOTE | 2017-07-02 18:46 | Internal Med History&Physical ---
Date of Encounter: 07/02/17 Time of Encounter: 17:30 Assessment and Plan (1) Acute exacerbation of CHF (congestive heart failure) Current visit: Yes Status: Acute Acute exacerbation of CHF. Pt. presents with chief complaint of increasing bilateral lower extremity edema, shortness of breath, dyspnea for the past week patient reports he has scrotal and penile swelling as well. Patient's daughter states last night patient became extremely short of breath while at rest and lower extremities with more swollen than today. She states she increased his Lasix from 40 mg to 80 mg. Will hold PO lasix and administer IVP Lasix 40 mg twice a day. Continuous cardiac telemetry. Echocardiogram ordered. Cardiac diet with 1.5L daily fluid restriction. Monitor I&O and daily weight. Pt. is at high risk for respiratory and cardiac distress d/t current sx, hx, and risk factors. Inpatient. Plan of care discussed w/Dr. Galarza who is in agreement with stated plan. Qualifiers: Congestive heart failure type: unspecified congestive heart failure type Qualified Code(s): I50.9 - Heart failure, unspecified (2) Atrial fibrillation Current visit: Yes Status: Chronic Hx of chronic atrial fibrillation. Pt. currently in Afib and takes Xarelto for anti-coagulation. Continuous cardiac telemetry. EKG now and obtain old EKG. Qualifiers: Atrial fibrillation type: unspecified Qualified Code(s): I48.91 - Unspecified atrial fibrillation (3) HTN (hypertension) Current visit: Yes Status: Chronic Hx of chronic HTN. Monitor patient in vital signs. Continue patient's metoprolol. Qualifiers: Hypertension type: essential hypertension Qualified Code(s): I10 - Essential (primary) hypertension (4) HLD (hyperlipidemia) Current visit: Yes Status: Chronic Hx of chronic HLD. Lipid panel in a.m. labs. Continue pts. Lipitor. Qualifiers: Hyperlipidemia type: pure hypercholesterolemia Qualified Code(s): E78.00 - Pure hypercholesterolemia, unspecified; E78.0 - Pure hypercholesterolemia (5) Anemia due to acute blood loss Current visit: Yes Status: Chronic Hx of chronic anemia due to acute blood loss. Pt. reports bright red blood in stool for the past several months. Fecal hemoccult positive. Pt. reports he had radioactive seeds placed in his prostate and experienced bleeding ever since. Monitor H/H Q6HR. GI consult ordered. Oncology hematology consult ordered. Protonix 40 mg IVP BID. Continue pts. folic acid. Pt. typed and screened and will receive PRBC transfusion(s) if warranted. (6) COPD (chronic obstructive pulmonary disease) Current visit: Yes Status: Chronic Hx of chronic COPD. Stable. Pt. SOB and dyspneic d/t acute exacerbation of CHF. DuoNebs Q6 scheduled. Supplemental O2 and SpO2 monitoring. Qualifiers: COPD type: unspecified COPD Qualified Code(s): J44.9 - Chronic obstructive pulmonary disease, unspecified (7) Coronary artery disease Current visit: Yes Status: Chronic Hx of chronic CAD. Continuous cardiac telemetry. Continue patient's aspirin therapy, as her also, metoprolol, and Lipitor. Qualifiers: Coronary Disease-Associated Artery/Lesion type: [place] artery [place] vs. transplanted heart: [place] heart Associated angina: without angina Qualified Code(s): I25.10 - Atherosclerotic heart disease of [place] coronary artery without angina pectoris (8) Prostate cancer Current visit: Yes Status: Resolved Pt. reports hx of prostate cancer. States radioactive seeds were placed in prostate. Stable. (9) DVT prophylaxis Current visit: Yes Status: Acute Continue pts. Xarelto for DVT prophylaxis. Monitor pt. for signs of bleeding. Internal Medicine - H&P: HPI Chief complaint: SOB/Dyspnea/BLE Edema Admitted From: Emergency Dept Plans for Post Hospital Care: Home History of present illness: Mr. Bland is a 87 year old male with medical hx of atrial fibrillation, prostate cancer, COPD, CHF, hypertension, kidney stones, and previous [place] presents with chief complaint of increasing bilateral lower extremity edema, shortness of breath, dyspnea for the past week patient reports he has scrotal and penile swelling as well. Patient's daughter states last night patient became extremely short of breath while at rest and lower extremities with more swollen than today. She states she increased his Lasix from 40 mg to 80 mg. Patient reports he is also chronically anemic receiving repeated blood transfusions. Patient was placed on high-dose steroids 2 weeks ago following a blood transfusion but is only taken 2 doses due to progressive swelling in BLEs. Pt. reports SOB, dyspnea, bright blood in stool, and weakness but denies recent illness, cough, fever, chills, nausea, vomiting, abdominal pain, headache , changes in vision, chest pain, palpitations, difficulty urinating, dizziness, lightheadedness, presyncope, or syncope. Past Med Surg Social Fam HX - Past Medical History Source: patient, old records reviewed, obtained from family Medical history: atrial fibrillation, cancer (Prostate), CHF, COPD, hypertension , kidney stones, myocardial infarction Psychiatric history: anxiety - Past Surgical History Surgical History: coronary bypass (CABG) - Social History Smoking Status: Never smoker Smokeless Tobacco Status: No Alcohol use: none Drug use: none Current living situation: Home Activity Level: Uses cane/walker Recent Out of Country Travel Within the Last 8 Weeks: No Exposure or Possible Exposure to Illness During Travel: No - Family History Father Race: Family Member Ethnicity: Non- Living Status: Age at : 78 Cause of : CAD Hx Family Cardiac Disorders: Yes (CAD) Mother Race: Family Member Ethnicity: Non- Living Status: Age at : 78 Cause of : Bone cancer Hx Family Cancer: Yes (Bone) Brother Race: Family Member Ethnicity: Non- Living Status: Age at : 68 Cause of : [place] Hx Family Cardiac Disorders: Yes (CAD, [place], HTN) Sister Race: Family Member Ethnicity: Non- Living Status: Age at : 85 Cause of : Cancer Hx Family Cancer: Yes (Type unknown) Internal Medicine - H&P: Meds Aspirin 81 mg PO DAILY 11/25/16 [History] Folic Acid 1 mg PO DAILY 11/25/16 [History] Metoprolol XL (24 HR) Succ [Toprol Xl] 25 mg PO DAILY 11/25/16 [History] Atorvastatin Calcium [Lipitor] 20 mg PO HS 06/05/17 [History] Docusate Sodium [Stool Softener] 100 mg PO DAILY 06/05/17 [History] Fluticasone Propionate Nasal [Flonase] 50 mcg NS BID PRN 06/05/17 [History] Furosemide [Lasix] 40 mg PO DAILY 06/05/17 [History] Loratadine [Allergy Relief] 10 mg PO DAILY PRN 06/05/17 [History] Multivit-Min/FA/Lycopen/Lutein [Centrum Silver Tablet] 1 each PO DAILY 06/05/17 [History] Potassium Chloride [K-Tab ER] 20 meq PO DAILY 06/05/17 [History] Rivaroxaban [Xarelto] 15 mg PO 1700 06/05/17 [History] Chlorhexidine Gluconate [Peridex] 15 ml MM BID 07/02/17 [History] Levobunolol 0.5% [Betagan] 1 drop BOTH EYES BID 07/02/17 [History] Oxygen 2 l NS AD 07/02/17 [History] Sennosides [Senna] 25.8 mg PO HS 07/02/17 [History] 3 Allergy/AdvReac Type Severity Reaction Status Date / Time ciprofloxacin [From Cipro] AdvReac Nausea Verified 06/23/17 15:33 Oxycodone [From Percocet] AdvReac Nausea Verified 06/23/17 15:33 rofecoxib [From Vioxx] AdvReac Nausea Verified 06/23/17 15:33 All Systems PM: A 10-system review of systems was performed and is negative for pertinent findings except as documented above in the HPI. - Constitutional Constitutional: as per HPI, weakness, no chills, no fever(s), no night sweats - EENT Eyes: no change in vision, no discharge, no pain, no photophobia Ears: no ear discharge, no ear pain, no tinnitus Nose, mouth and throat: no dysphagia, no nasal discharge, no neck pain, no sore throat - Breasts Breasts: as per HPI - Cardiovascular Cardiovascular ROS IM: dyspnea, dyspnea on exertion, edema (BLEs), irregular heart rhythm (Hx of atrial fibrillation), no chest pain, no diaphoresis, no lightheadedness, no palpitations, no syncope - Respiratory Respiratory: as per HPI, dyspnea, dyspnea on exertion - Gastrointestinal Gastrointestinal: as per HPI, hematochezia, no abdominal pain, no diarrhea, no hematemesis, no melena, no nausea, no vomiting - Genitourinary Genitourinary ROS male: as per HPI - Musculoskeletal Musculoskeletal ROS IM: no numbness, no tingling - Integumentary Integumentary IM: no rash, no unusual bruising - Neurological Neurological ROS: no confusion, no convulsions, no focal weakness, no numbness, no tingling, no tremor(s) - Psychiatric Psychiatric: as per HPI - Endocrine Endocrine IM: as per HPI - Hematologic/Lymphatic Hematologic/Lymphatic: as per HPI, other (Bright red blood in stool within the past month), no easy bruising - Allergic/Immunologic Allergic/Immunologic: as per HPI - Constitutional Vitals: Temp Pulse Resp BP Pulse Ox 98.3 F 105 18 94/76 100 07/02/17 18:27 07/02/17 18:27 07/02/17 18:27 07/02/17 18:27 07/02/17 18:27 General appearance: Present: A&O X 0, cooperative, pleasant, no acute distress, answers questions appropriately - Head Head exam: Present: atraumatic, normal inspection, normocephalic - Eye Eye exam: Present: PERRL, conjuntiva pink, sclera anicteric Pupils: Present: normal accommodation, PERRL - ENT ENT exam: Present: normal exam, normal external ear exam, normal oropharynx - Neck Neck exam general surgery: Present: normal inspection, supple, trachea midline. Absent: lymphadenopathy - Respiratory Respiratory exam: Present: decreased breath sounds. Absent: accessory muscle use, rales, rhonchi, wheezes - Cardiovascular Cardiovascular exam: Present: irregular rhythm (Atrial fibrillation) - GI/Abdominal GI/Abdominal exam: Present: normal bowel sounds, soft, no peritoneal signs. Absent: distended, tenderness - Rectal Rectal exam: Present: deferred - Additional comments: exam deferred. - Extremities Exam Extremities exam: Present: pedal edema (BLEs w/2+ pitting), warm, radial pulses palpable and symmetrical - Back Exam Back exam: Present: normal inspection - Neurological Exam Neurological exam: Present: CN II-XII intact, oriented X3, no focal deficits. Absent: pronater drift, facial droop, speech deficit - Psychiatric Psychiatric exam: Present: normal affect, normal mood - Skin Skin exam: Present: dry, intact, rash (BLEs near ankles) Internal Med - H&P Results - Labs CBC & Chem 7: 07/02/17 14:46 07/02/17 14:46 - EKG Data Interpretation IM: suggestive of ischemia EKG comments: 07/02/17 20:35 EKG dated 07/02/17 shows atrial fibrillation w/RVR with moderate T-wave abnormality. Consider lateral ischemia. - Diagnostic Studies Chest x-ray Additional comments: Impressions Chest X-Ray 07/02/17 14:37 IMPRESSION: Cardiomegaly with pulmonary edema and small pleural effusions compatible with CHF. D/ / Angeli Cruz MD / Angeli Cruz MD Interpreting Provider: Angeli Cruz MD
[2017-07-02] MEDS: Ipratropium/Albuterol Neb 3 ML IH SCH ×2 (19:12→22:20)
[2017-07-02 20:41] LABS: Hematocrit 23.8 % (37.5-50.1); Hemoglobin 7.7 g/dL (12.9-16.9)
[2017-07-02 20:59] LABS: INR 1.8; Prothrombin Time 19.9 Seconds (9.4-12.1)
[2017-07-02] MEDS ORDERED: Sennosides 8.6 MG TABLET PO SCH (21:00)
[2017-07-02] MEDS: LEVOBUNOLOL 0.5% BOTH EYES SCH (21:09)
[2017-07-02] MEDS: Chlorhexidine Rinse 15 ML MOUTHWASH MM SCH (21:13)
[2017-07-02] MEDS ORDERED: Melatonin 3 MG TABLET PO PRN (23:52)
[2017-07-02] MEDS: Furosemide 40 MG/4 ML VIAL IVP SCH (23:55)
[2017-07-03] MEDS: Ipratropium/Albuterol Neb 3 ML IH SCH ×3 (03:27→15:46)
[2017-07-03 04:55] LABS: Hematocrit 22.5 % (37.5-50.1); Hemoglobin 7.3 g/dL (12.9-16.9); Mean Corpuscular HGB Conc 32.4 g/dL (31.6-35.5); Mean Corpuscular Hemoglobin 39.5 pg (28.0-33.3); Mean Corpuscular Volume 121.6 fL (83.0-100.0); Mean Platelet Volume 10.7 fL (9.4-12.4); Neutrophils # 1.7 K/mcL (1.6-8.9); Nucleated Red Blood Cells 1.8 /100 WBC (0); Platelet Count 273 K/mcL (140-400); Red Blood Count 1.85 M/mcL (4.19-5.50); Red Cell Distribution Width 29.6 % (11.5-14.5)
[2017-07-03 04:57] LABS: Lymphocytes # 0.9 K/mcL (0.6-4.6)
[2017-07-03 05:03] LABS: INR 1.8; Prothrombin Time 19.4 Seconds (9.4-12.1)
[2017-07-03 05:06] LABS: Activated Partial Thrombo Time 34.3 Seconds (26.0-36.0); Hemoglobin A1C 5.4 %
[2017-07-03 05:13] LABS: Alanine Aminotransferase 43 Units/L (0-55); Albumin 2.9 g/dL (3.5-5.0); Albumin/Globulin Ratio 1.1 (1.1-2.2); Alkaline Phosphatase 69 Units/L (38-126); Aspartate Amino Transferase 36 Units/L (5-34); BUN/Creatinine Ratio 39 (6-26); Bilirubin,Total 2.9 mg/dL (0.2-1.2); Blood Urea Nitrogen 41 mg/dL (8-26); Calcium 8.2 mg/dL (8.6-10.8); Carbon Dioxide 24 mEq/L (19-29); Chloride 105 mEq/L (98-109); Chol/HDL Ratio 1.8 (0-4.9); Globulin 2.7 g/dL (2.4-3.5); Glucose 103 mg/dL (70-99); HDL Cholesterol 26 mg/dL (40-59); LDL Cholesterol,Calculated 12 mg/dL (0-99); Magnesium 1.9 mg/dL (1.6-2.6); Osmolality,Calculated 298 (280-300); Potassium 3.8 mEq/L (3.5-4.5); Sodium 139 mEq/L (136-145); Total Protein 5.6 g/dL (6.0-8.3); Triglycerides 43 mg/dL (< 150); eGFR For African Americans > 60 (> 60); eGFR For Non-African Americans > 60 (> 60)
[2017-07-03 05:15] LABS: Cholesterol 47 mg/dL (< 200)
[2017-07-03 05:34] LABS: Anisocytosis 3+ (Not Present); Macrocytosis Present (Not Present); Microcytosis Present (Not Present); Monocytes # 0.6 K/mcL (0.0-1.3); Platelet Estimate Normal (Normal); Schistocytes 1+ (Not Present)
[2017-07-03 05:35] LABS: Hypochromasia Present (Not Present); Poikilocytosis 2+ (Not Present); Tear Drop Cells 1+ (Not Present)
[2017-07-03] MEDS ORDERED: Pantoprazole 40 MG VIAL IVP SCH (06:00)
--- NOTE | 2017-07-03 08:21 | Event Note ---
Date of Encounter: 07/02/17 Time of Encounter: 18:00 Discussed with GRACE and agree with assessment and plan. Patient with CHF exacerbation in addition to acute on chronic blood loss anemia with occult positive stool. Will continue IV diuresis for CHF and consult hematology oncology for concerns for hemolytic anemia. GI also consulted for occult positive stool with acute on chronic anemia.
[2017-07-03] MEDS: Furosemide 40 MG/4 ML VIAL IVP SCH (08:51)
[2017-07-03] MEDS: Chlorhexidine Rinse 15 ML MOUTHWASH MM SCH (08:51)
[2017-07-03] MEDS: LEVOBUNOLOL 0.5% BOTH EYES SCH (08:52)
[2017-07-03] MEDS ORDERED: Aspirin 81 MG TAB.CHEW PO SCH (09:00)
[2017-07-03] MEDS ORDERED: Folic Acid 1 MG TABLET PO SCH (09:00)
[2017-07-03] MEDS ORDERED: Multivit/Ca/Min/Fe/FA 1 TAB TABLET PO SCH (09:00)
[2017-07-03] MEDS ORDERED: Metoprolol XL (24 HR) Succ 25 MG TAB.ER.24H PO SCH (09:00)
--- NOTE | 2017-07-03 10:38 | Gastroenterology Consult Note ---
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 He needs colonoscopy once CHF is improved. Was advised will schedule for Thursday but pt states he is going home and will do as outpatient. Will order prep in case pt remains hospitalized on Thursday. Will be unable to scope pt as outpatient as he has recent CHF exacerbation and hospitalization. (2) Anemia Current Visit: Yes Status: Acute Assessment and plan: Chronic requiring transfusions. Has BRBR but states he wants to go home and have colonoscopy as an outpatient, advised against him leaving as we would not be able to do colonoscopy as an outpatient but pt is adamant. Oncology has been consulted. (3) Afib Current Visit: Yes Status: Chronic Assessment and plan: Pt on xarelto Qualifiers: Atrial fibrillation type: chronic Qualified Code(s): I48.2 - Chronic atrial fibrillation (4) Prostate cancer Current Visit: Yes Status: Resolved (5) Acute exacerbation of CHF (congestive heart failure) Current Visit: Yes Status: Acute Assessment and plan: Followed by cardiology and has been receiving IV diuretics. Needs to improve before colonoscopy. Qualifiers: Congestive heart failure type: unspecified congestive heart failure type Qualified Code(s): I50.9 - Heart failure, unspecified - Time Spent With Patient Total time spent is greater than 50% in coordination of care (as documented) at patient's floor/unit and/or counseling patient: GI History of Present Illness - Data of Consult Patient: new to practice Consult date: 07/03/17 Requesting Physician: Rickie Platt DO - Consult Narrative Reason for consult: rectal bleeding History of present illness: Mr. Bland is a 87 year old male with pmhx of atrial fibrillation, prostate cancer, COPD, CHF, hypertension, kidney stones, and previous [place]. He presents with acute CHF symptoms. He also reports bright red rectal bleeding, but states it is only a small amount when he wipes. His daughter is at the bedside and states her brother witnessed one episode of large amount of bright red bleeding at home. He has chronic anemia which required blood transfusions a couple weeks ago. He has a history of prostate cancer with seeding. He also has a history of anal stricture and states he takes stool softeners and laxatives to keep his stool liquid or he is unable to pass them. He denies fever, chills, nausea, vomiting, abdominal pain, dizziness, lightheadedness, presyncope, or syncope. He is on xarelto for atrial fib. Review of labs show a hgb 7.3 and INR 1.8. Pt states he feels much better and is asking to go home. EGD/Colon: pt and daughter unsure of date NSAIDS/ASA: 81 mg anticoagulants: xarelto Past Med Surg Social Fam HX - Past Medical History Medical history: atrial fibrillation, cancer, COPD, hypertension, kidney stones Psychiatric history: anxiety - Past Surgical History Surgical History: coronary bypass (CABG) - Social History Smoking Status: Never smoker Smokeless Tobacco Status: No Alcohol use: none Drug use: none - Family History Mother Race: Family Member Ethnicity: Non- Living Status: Age at : 78 Cause of : Bone cancer Hx Family Cancer: Yes (Bone) Father Race: Family Member Ethnicity: Non- Living Status: Age at : 78 Cause of : CAD Hx Family Cardiac Disorders: Yes (CAD) Brother Race: Family Member Ethnicity: Non- Living Status: Age at : 68 Cause of : PA Hx Family Cardiac Disorders: Yes (CAD, [place], HTN) Sister Race: Family Member Ethnicity: Non- Living Status: Age at : 85 Cause of : Cancer Hx Family Cancer: Yes (Type unknown) Review of Systems: GI: as per [place] GENERAL: denies fever, or chills EYES: denies yellow discoloration ENT: denies pain with swallowing or difficulty swallowing CARDIO: denies chest pain, palpitations RESP: No Shortness of breath with exertion : denies change in color of urine NEURO: denies any weakness HEME: Denies any bruising MS: increased BLE edema, chronic joint pain. DERM: denies rash or itching PSYCH: Denies history of anxiety or depression - Constitutional Vitals: Temp Pulse Resp BP Pulse Ox 98.2 F 96 17 103/75 99 07/03/17 08:45 07/03/17 02:54 07/03/17 08:45 07/03/17 08:45 07/03/17 08:45 Exam: CONSTITUTIONAL:~alert, no acute distress.~HEAD:~normocephalic.~EYES:~no jaundice.~NECK:~no obvious swelling.~HEART:~regular rate and rhythm, murmur noted.~LUNGS:~bilateral fair air entry, no rhonchi or rales noted.~ABDOMEN:~non distended, soft, non tender, no masses palpable, no organomegaly.~RECTALEXAM:~ Deferred.~EXTREMITIES:~no clubbing, or cyanosis, 2+ BLE edema, ~SKIN:~pallor noted, no stigmata of chronic liver disease.~NEUROLOGIC:~no obvious focal defect.~~~~ Results - Labs CBC & Chem 7: 07/03/17 04:42 07/03/17 04:42 Labs: Last Result Calcium 8.2 mg/dL (8.6-10.8) L 07/03/17 04:42 Triglycerides 43 mg/dL (< 150) 07/03/17 04:42 Stool Occult Blood Positive (Negative) A 07/02/17 16:22 Entire Visit Hgb 7.3 g/dL (12.9-16.9) L 07/03/17 04:42 Hct 22.5 % (37.5-50.1) L 07/03/17 04:42 PT 19.4 Seconds (9.4-12.1) H 07/03/17 04:42 Total Bilirubin 2.9 mg/dL (0.2-1.2) H 07/03/17 04:42 AST 36 Units/L (5-34) H 07/03/17 04:42 ALT 43 Units/L (0-55) 07/03/17 04:42 - ABG ABG results: PT/INR, D-dimer PT 19.4 Seconds (9.4-12.1) H 07/03/17 04:42 Consult Discharge Plan - Plan Referrals: Vivek Sosa DO [Primary Care Provider] - <Alan Miramontes - Last Filed: 07/03/17 13:03> Date of Encounter: 07/03/17 Time of Encounter: 13:00 - Time Spent With Patient Total time spent is greater than 50% in coordination of care (as documented) at patient's floor/unit and/or counseling patient: GI History of Present Illness - Data of Consult Requesting Physician: Rickie Platt DO - Consult Narrative History of present illness: Mr. Bland is a 87 year old male - Constitutional Vitals: Temp Pulse Resp BP Pulse Ox 98.1 F 96 17 94/68 99 07/03/17 12:10 07/03/17 12:10 07/03/17 12:10 07/03/17 12:10 07/03/17 12:10 Results - Labs CBC & Chem 7: 07/03/17 04:42 07/03/17 04:42 Labs: Last Result Calcium 8.2 mg/dL (8.6-10.8) L 07/03/17 04:42 Triglycerides 43 mg/dL (< 150) 07/03/17 04:42 Stool Occult Blood Positive (Negative) A 07/02/17 16:22 Entire Visit Hgb 7.3 g/dL (12.9-16.9) L 07/03/17 04:42 Hct 22.5 % (37.5-50.1) L 07/03/17 04:42 PT 19.4 Seconds (9.4-12.1) H 07/03/17 04:42 Total Bilirubin 2.9 mg/dL (0.2-1.2) H 07/03/17 04:42 AST 36 Units/L (5-34) H 07/03/17 04:42 ALT 43 Units/L (0-55) 07/03/17 04:42 - ABG ABG results: PT/INR, D-dimer PT 19.4 Seconds (9.4-12.1) H 07/03/17 04:42 - Impressions Impressions Echocardiogram 07/02/17 19:14 Impressions: LVEF 40%. Asymmetric basal septal hypertrophy. Atypical septal motion consistent with post-operative status. Indeterminate diastolic function. Normal RV size. Function is mild to moderately reduced. Densely calcified aortic valve leaflets with reduced leaflet excursion. Probably moderate aortic stenosis with area-gradient mismatch (TE[place]ORO 1.2 cm2, MG 8 mmHg) due to reduced LV stroke volume (23mL/m2). Moderate-severe mitral regurgitation with apically displaced, tethered mitral valve leaflets. Moderate-severe tricuspid regurgitation. Moderate pulmonary hypertension. Left Ventricular Wall Motion: Rest Echo Findings The apex, apical lateral, mid anterior lateral and basal anterior lateral edmond were hypokinetic. The mid inferior wall was akinetic. The apical septal, mid inferior septal, basal inferior septal, mid anterior septal and basal anterior septal edmond were dyskinetic. 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 The mid inferior lateral wall was not visualized. All other wall segments showed normal motion. Findings: Study Quality * Technically adequate exam. ECG Findings * Atrial fibrillation - HR 110's. Left Ventricle * Asymmetric basal septal hypertrophy. * Asymmetric basal septal hypertrophy. No LVOTO. * Atypical septal motion consistent with post-operative status. * LVEF 40%. * Indeterminate diastolic function. * Normal LV size. Right Ventricle * Normal RV size. Function is mild to moderately reduced. Reduced TD velocity. Left Atrium * Severely dilated left atrium. Right Atrium * Normal right atrial size. Aortic Valve * Densely calcified aortic valve leaflets. Number of leaflets could not be well visualized. * Trace aortic regurgitation. * Moderate aortic stenosis by TEODORO. There is an area gradient mismatch probably due to reduced stroke volume. Mitral Valve * Moderate-severe mitral regurgitation. * No mitral stenosis. * Apically displaced, tethered mitral valve leaflets. Tricuspid Valve * Normal tricuspid valve structure. * Moderate-severe tricuspid regurgitation. * Estimated RA pressure is 15 mmHg. * Estimated RVSP is 54 mmHg. * Moderate pulmonary hypertension. Pulmonic Valve * Pulmonic valve is not well visualized. * No pulmonic stenosis. * Trace pulmonic regurgitation. Pulmonary Artery * Normal visualized portions of the main pulmonary artery. Aorta * Not well visualized. Pericardium * There is no pericardial effusion present. Interatrial Septum * No evidence of PFO by color Doppler. IVC * The IVC is dilated. * < 50% respiratory change. - Attending Attestation I examined this patient and my medical decision-making was reviewed with the Resident Physician. I agree with the documented findings, disposition and treatment plan as described except to the extent set forth below. 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 Patient also had prostate cancer for which he has seeds implanted in the prostate. Now has occasional smearing of the stool with blood but per patient only if he is constipated. Per patient if he takes Colace /stool softener then he does not see the blood but only if stools are hard. Some old blood in the stool can be because of radiation proctitis versus hemorrhoids. At this point advises to patient to take fiber/stool softener daily if he is having bleeding more frequently then he will need a sigmoidoscopy with possible APC of the radiation proctitis if found
[2017-07-03 12:14] VITALS: BP 94/68
--- NOTE | 2017-07-03 12:53 | Cardiology Consult Note ---
<Trey Borrego - Last Filed: 07/03/17 13:19> Date of Encounter: 07/03/17 Time of Encounter: 11:00 Assessment and Plan (1) Acute exacerbation of CHF (congestive heart failure) Current Visit: Yes Status: Acute Pt responding well to diuresis by primary team. BNP 1316. No chest pain, exertional discomfort, likely volume overload. P: Recommend low-salt diet, continue lasix 40mg po daily outpatient. Appt scheduled outpatient for follow-up CHF exacerbation. Qualifiers: Congestive heart failure type: unspecified congestive heart failure type Qualified Code(s): I50.9 - Heart failure, unspecified (2) Anemia due to acute blood loss Current Visit: Yes Status: Chronic GI discussed colonoscopy with patient for Thursday. Patient desires outpatient colonoscopy, per most recent GI note, cannot do outpatient due to recent CHF exacerbation. Cardiology recommends patient stay on Xarelto until 24 hours prior to a planned colonoscopy. CHADSVasc of 5; 7.2% per year stroke risk, 10% risk of stroke/TIA/systemic embolism. Discussed risks of Xarelto discontinuation, as well has risks of bleed with Xarelto continuation until diagnostics/intervention with GI. Patient and daughter aware and agree. (3) Afib Current Visit: Yes Status: Chronic Currently on Xarelto, CHADSVASc 5. Plan as above regarding bleed. Qualifiers: Atrial fibrillation type: chronic Qualified Code(s): I48.2 - Chronic atrial fibrillation Discussion w patient/family: The assessment and plan as outlined above was discussed with the patient and/or family members who expressed understanding and agreement. All questions were answered. Thank you for involving us in the care of your patient. Please call with any questions. History of Present Illness Consult date: 07/03/17 Requesting physician: Trevor Villalpando Consult reason: Xarelto in setting of anemia/GI bleed Chief complaint: Bilateral LE edema, scrotal swelling History of present illness: Mr. Jayesh Bland, 87M, PMH CHF, AL s/p CABG, afib on Xarelto, HTN, prostate cancer s/p brachytherapy, presents with 1 week of worsening bilateral LE edema and scrotal swelling. Swelling continued during the past week despite increasing his Lasix from 40mg daily to BID. He reports having eaten a heavier salt load in past few weeks starting this Thanksgiving, no exertional discomfort /dyspnea or chest pain. ED labs revealed BNP 1316, incidental H&H 7.3,22.5 (hx Dr. Mosley hematology, workup for Myelodysplastic syndrome versus hemolytic anemia , recent prednisone use); +FOBT. Cardiology consulted to evaluate Xarelto usage amidst anemia and possible GI bleed. Patient has diuresed well, with edema decreased substantially. Past Med Surg Social Fam HX - Past Medical History Medical history: atrial fibrillation, cancer, COPD, hypertension, kidney stones Psychiatric history: anxiety - Past Surgical History Surgical History: coronary bypass (CABG) - Social History Smoking Status: Never smoker Smokeless Tobacco Status: No Alcohol use: none Drug use: none - Family History Mother Race: Family Member Ethnicity: Non- Living Status: Age at : 78 Cause of : Bone cancer Hx Family Cancer: Yes (Bone) Father Race: Family Member Ethnicity: Non- Living Status: Age at : 78 Cause of : CAD Hx Family Cardiac Disorders: Yes (CAD) Brother Race: Family Member Ethnicity: Non- Living Status: Age at : 68 Cause of : AL Hx Family Cardiac Disorders: Yes (CAD, AL, HTN) Sister Race: Family Member Ethnicity: Non- Living Status: Age at : 85 Cause of : Cancer Hx Family Cancer: Yes (Type unknown) Medications and Allergies Aspirin 81 mg PO DAILY 11/25/16 [History] Folic Acid 1 mg PO DAILY 11/25/16 [History] Metoprolol XL (24 HR) Succ [Toprol Xl] 25 mg PO DAILY 11/25/16 [History] Atorvastatin Calcium [Lipitor] 20 mg PO HS 06/05/17 [History] Docusate Sodium [Stool Softener] 100 mg PO DAILY 06/05/17 [History] Fluticasone Propionate Nasal [Flonase] 50 mcg NS BID PRN 06/05/17 [History] Furosemide [Lasix] 40 mg PO DAILY 06/05/17 [History] Loratadine [Allergy Relief] 10 mg PO DAILY PRN 06/05/17 [History] Multivit-Min/FA/Lycopen/Lutein [Centrum Silver Tablet] 1 each PO DAILY 06/05/17 [History] Potassium Chloride [K-Tab ER] 20 meq PO DAILY 06/05/17 [History] Rivaroxaban [Xarelto] 15 mg PO 1700 06/05/17 [History] Chlorhexidine Gluconate [Peridex] 15 ml MM BID 07/02/17 [History] Levobunolol 0.5% [Betagan] 1 drop BOTH EYES BID 07/02/17 [History] Oxygen 2 l NS AD 07/02/17 [History] Sennosides [Senna] 25.8 mg PO HS 07/02/17 [History] Melatonin 1.5 mg PO HS PRN tablet 07/03/17 [Rx] 3 Allergy/AdvReac Type Severity Reaction Status Date / Time ciprofloxacin [From Cipro] AdvReac Nausea Verified 06/23/17 15:33 Oxycodone [From Percocet] AdvReac Nausea Verified 06/23/17 15:33 rofecoxib [From Vioxx] AdvReac Nausea Verified 06/23/17 15:33 All Systems Review: A 10-system review of systems was performed and is negative for pertinent findings except as documented above in the HPI. Physical Examination Vital Signs, Last 4 Hours Temp Pulse Resp BP Pulse Ox 07/03/17 12:10 98.1 F 96 17 94/68 99 General: Conversant HEENT: Atraumatic Neck: No JVD, Normal carotid pulses Cardiac: Reg Rate and Rhythm, Normal S1 and S2 Lungs: Other (normal chest wall motion bilaterally, no wheeze or crackles) Extremities: No Cyanosis, Other (+1 pitting edema) Results 07/03/17 04:42 07/03/17 04:42 Lab Results 07/02/17 07/02/17 07/02/17 20:33 20:33 20:33 WBC Hgb 7.7 L Hct 23.8 L Plt Count INR 1.8 APTT 34.7 Sodium Potassium Chloride Carbon Dioxide BUN Creatinine Glucose Calcium Magnesium Total Bilirubin AST ALT Alkaline Phosphatase TSH 07/03/17 07/03/17 07/03/17 04:42 04:42 04:42 WBC 3.3 L Hgb 7.3 L Hct 22.5 L Plt Count 273 INR 1.8 APTT 34.3 Sodium 139 Potassium 3.8 Chloride 105 Carbon Dioxide 24 BUN 41 H Creatinine 1.05 Glucose 103 H Calcium 8.2 L Magnesium 1.9 Total Bilirubin 2.9 H AST 36 H ALT 43 Alkaline Phosphatase 69 TSH 07/03/17 04:42 WBC Hgb Hct Plt Count INR APTT Sodium Potassium Chloride Carbon Dioxide BUN Creatinine Glucose Calcium Magnesium Total Bilirubin AST ALT Alkaline Phosphatase TSH 1.530 Consult Discharge Plan - Plan Instructions: Heart Failure (DC), Atrial Fibrillation (DC) Referrals: Vivek Sosa DO [Primary Care Provider] - 07/10/17 8:00 am (already scheduled) Andie Fish [Partnered Physician] - (please call for appointment for hospital follow up ) Alan Miramontes MD [Partnered Physician] - (Please call for hospital follow up appointment ) <Andie Fish - Last Filed: 07/03/17 15:47> Date of Encounter: 07/03/17 - Attending Attestation I examined this patient and my medical decision-making was reviewed with the Resident Physician. I agree with the documented findings, disposition and treatment plan as described except to the extent set forth below. 87 YOM with h/o Afib on xarelto with ChadsVasc 5 with high risk for stroke. ECHO LVEF 40% with moderate , mod to sev MR and TR. Unfortunaetly patient with current anemia and GI bleed awaiting Colonoscopy. Continue AC unless CI by GI and risk of bleed outweighs risk of stroke. Patient understands risk of stopping AC. HAS-BLED risk of bleed 3. Assessment and Plan Discussion w patient/family: The assessment and plan as outlined above was discussed with the patient and/or family members who expressed understanding and agreement. All questions were answered. Thank you for involving us in the care of your patient. Please call with any questions. History of Present Illness History of present illness: Mr. Bland is a 87 year old male All Systems Review: A 10-system review of systems was performed and is negative for pertinent findings except as documented above in the HPI. Physical Examination Vital Signs, Last 4 Hours Temp Pulse Resp BP Pulse Ox 07/03/17 12:10 98.1 F 96 17 94/68 99 Results 07/03/17 04:42 07/03/17 04:42 Lab Results 07/02/17 07/02/17 07/02/17 20:33 20:33 20:33 WBC Hgb 7.7 L Hct 23.8 L Plt Count INR 1.8 APTT 34.7 Sodium Potassium Chloride Carbon Dioxide BUN Creatinine Glucose Calcium Magnesium Total Bilirubin AST ALT Alkaline Phosphatase TSH 07/03/17 07/03/17 07/03/17 04:42 04:42 04:42 WBC 3.3 L Hgb 7.3 L Hct 22.5 L Plt Count 273 INR 1.8 APTT 34.3 Sodium 139 Potassium 3.8 Chloride 105 Carbon Dioxide 24 BUN 41 H Creatinine 1.05 Glucose 103 H Calcium 8.2 L Magnesium 1.9 Total Bilirubin 2.9 H AST 36 H ALT 43 Alkaline Phosphatase 69 TSH 07/03/17 04:42 WBC Hgb Hct Plt Count INR APTT Sodium Potassium Chloride Carbon Dioxide BUN Creatinine Glucose Calcium Magnesium Total Bilirubin AST ALT Alkaline Phosphatase TSH 1.530
--- NOTE | 2017-07-03 14:21 | Discharge Summary ---
<Rickie Platt - Last Filed: 07/03/17 18:24> Date of Encounter: 07/03/17 - Discharge Diagnosis (1) Acute exacerbation of CHF (congestive heart failure) Priority: Primary Status: Acute Qualifiers: Congestive heart failure type: systolic Qualified Code(s): I50.23 - Acute on chronic systolic (congestive) heart failure (2) Rectal bleeding Priority: Primary Status: Acute (3) Coronary artery disease Priority: Secondary Status: Chronic Qualifiers: Coronary Disease-Associated Artery/Lesion type: [place] artery [place] vs. transplanted heart: [place] heart Associated angina: without angina Qualified Code(s): I25.10 - Atherosclerotic heart disease of [place] coronary artery without angina pectoris (4) Afib Priority: Secondary Status: Chronic Qualifiers: Atrial fibrillation type: chronic Qualified Code(s): I48.2 - Chronic atrial fibrillation (5) HTN (hypertension) Priority: Secondary Status: Chronic Qualifiers: Hypertension type: essential hypertension Qualified Code(s): I10 - Essential (primary) hypertension (6) Anemia Priority: Secondary Status: Chronic Qualifiers: Anemia type: other cause Other causes of anemia: chronic disease, other Qualified Code(s): D63.8 - Anemia in other chronic diseases classified elsewhere - Discharge Medications Home Medications: Aspirin 81 mg PO DAILY 11/25/16 [History] Folic Acid 1 mg PO DAILY 11/25/16 [History] Metoprolol XL (24 HR) Succ [Toprol Xl] 25 mg PO DAILY 11/25/16 [History] Atorvastatin Calcium [Lipitor] 20 mg PO HS 06/05/17 [History] Docusate Sodium [Stool Softener] 100 mg PO DAILY 06/05/17 [History] Fluticasone Propionate Nasal [Flonase] 50 mcg NS BID PRN 06/05/17 [History] Furosemide [Lasix] 40 mg PO DAILY 06/05/17 [History] Loratadine [Allergy Relief] 10 mg PO DAILY PRN 06/05/17 [History] Multivit-Min/FA/Lycopen/Lutein [Centrum Silver Tablet] 1 each PO DAILY 06/05/17 [History] Potassium Chloride [K-Tab ER] 20 meq PO DAILY 06/05/17 [History] Rivaroxaban [Xarelto] 15 mg PO 1700 06/05/17 [History] Chlorhexidine Gluconate [Peridex] 15 ml MM BID 07/02/17 [History] Levobunolol 0.5% [Betagan] 1 drop BOTH EYES BID 07/02/17 [History] Oxygen 2 l NS AD 07/02/17 [History] Sennosides [Senna] 25.8 mg PO HS 07/02/17 [History] Melatonin 1.5 mg PO HS PRN tablet 07/03/17 [Rx] Allergies/Adverse Reactions: 3 Allergy/AdvReac Type Severity Reaction Status Date / Time ciprofloxacin [From Cipro] AdvReac Nausea Verified 06/23/17 15:33 Oxycodone [From Percocet] AdvReac Nausea Verified 06/23/17 15:33 rofecoxib [From Vioxx] AdvReac Nausea Verified 06/23/17 15:33 Procedures/tests Complete & Pending: Procedures Performed prior 72 hours Category Date Time Status ECG 12 lead ECG [ECG] Stat Y 07/02/17 18:55 Completed ECG 12 lead ECG [ECG] Stat Y 07/02/17 18:55 Ordered EV echocardiogram Routine Y 07/02/17 19:14 Completed Date of admission: 07/02/17 18:28 Primary care physician: Vivek Sosa, Consults: 07/02/17 19:20 Consult to Gastroenterology [CONS] Routine Consulting Provider: Jim Jensen Reason for Consult: Pt. has hx of anemia d/t acute blood loss and reports bright red blood in his stool for the past several months. Son states at one point blood filled the toilet bowl. Pts. Hgb and Hct levels fluctuate d/t recurrent transfusions. Today Hgb is 7.5 and Hct is 23.2; 6.7 and 20.6 on 06/05/17; 8.3 and 24.6 on 11/27/16. Call Completed: Yes Consult to Oncology Hematology [CONS] Routine Consulting Provider: Maria C Sanez Reason for Consult: Pt. has chronic hx of anemia r/t acute blood loss. Pt. 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 Pt. also has hx of atrial fibrillation and is anti-coagulated w/Xarelto. Call Completed: Yes 07/02/17 19:38 Consult to Cardiology [CONS] Routine Comment: Consulting Provider: Cardiology Camila Reason for Consult: Pt. is 85 year old w/hx of atrial fibrillation who is anti-coagulated w/Xarelto. Pt. also has rectal bleeding, hx of anemia r/t blood loss, and recurrent need for transfusions. Pt. is currently in acute exacerbation of CHF. Echocardiogram ordered. GI consult ordered and discussed w/Dr. Chávez. Recommendation needed for continuation of Xarelto d/t current fecal hemoccult and need for colonoscopy on Thursday. Call Completed: Yes - Patient Status Disposition: Home, Self-Care Condition: Fair - Discharge Instructions Instructions: Heart Failure (DC), Atrial Fibrillation (DC) Follow Up With: Vivek Sosa DO [Primary Care Provider] - 07/10/17 8:00 am (already scheduled) Andie Fish [Partnered Physician] - (please call for appointment for hospital follow up ) Alan Miramontes MD [Partnered Physician] - (Please call for hospital follow up appointment ) Hospital course: Mr. Bland is a 87 year old male - Time Spent with Patient Total time spent providing and/or coordinating discharge services: 38min - Constitutional Vitals: Temp Pulse Resp BP Pulse Ox 98.1 F 96 17 94/68 99 07/03/17 12:10 07/03/17 12:10 07/03/17 12:10 07/03/17 12:10 07/03/17 12:10 - Attending Attestation I examined this patient and my medical decision-making was reviewed with the Resident Physician on 07/03/17. I agree with the documented findings, disposition and treatment plan as described except to the extent set forth below. Mr Bland has been admitted for acute GI bleed and exac CHF. He is afebrile with stable vitals. He does not want to pursue colonoscopy at this time. 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 He is going to be discharged for outpatient follow up. Exam Alert. Comfortable Heart irreg Lungs diminished Edema present Plan D/C home today Watch for signs/symptoms new bleeding and return Follow with PCP and GI as outpatient. Pt and daughter understood risks of not pursuing colonoscopy at this time. Pt has EF 40%. He is on Beta selene but has not been started on ARMANI at this time. This will be addressed as outpatient. When this patient was admitted he had presumed acute GI bleed and acute CHF. It was anticipated that he would be hospitalized for greater than 2 midnights but he has stabilized enough for discharge today. <Jahaira Owens - Last Filed: 07/03/17 20:40> Date of Encounter: 07/03/17 Time of Encounter: 14:19 - Discharge Diagnosis (1) Acute exacerbation of CHF (congestive heart failure) Priority: Primary Status: Acute Comments: Presenetd with worsening lower extremity edema to groin bilaterally Requiring IV lasix, net> 2L output Will be discharged home on normal lasix Remained on remainder of normal medications Qualifiers: Congestive heart failure type: systolic Qualified Code(s): I50.23 - Acute on chronic systolic (congestive) heart failure (2) Afib Priority: Secondary Status: Chronic Comments: Chronic atrial fibrillation On xarelto Consulted cardiology, pateint has CHADS-Vasc score of 5 making him a candidate for anticoagulation. Believe patient may benefit from eliquis as had lower incidence of gastrointestinal bleeding Rate was controlled during hospital stay Patient left before possible switch to eliquis could be discussed Follow up [facility] cardiology as outpatient Qualifiers: Atrial fibrillation type: chronic Qualified Code(s): I48.2 - Chronic atrial fibrillation (3) Anemia Priority: Secondary Status: Chronic Comments: Patient has known history of anemia Follows with hematology/oncology, concern for MDS. Patient has refused bone marrow biopsy to determine cause Has recently required blood transfusions x 2 Patient with hemoglobin about his baseline, was hemocult positve, does have history of known internal hemorrhoids Qualifiers: Anemia type: other cause Other causes of anemia: chronic disease, other Qualified Code(s): D63.8 - Anemia in other chronic diseases classified elsewhere (4) HLD (hyperlipidemia) Priority: Secondary Status: Chronic Comments: Chronic. Stable. Continued on home medication Qualifiers: Hyperlipidemia type: pure hypercholesterolemia Qualified Code(s): E78.00 - Pure hypercholesterolemia, unspecified; E78.0 - Pure hypercholesterolemia (5) HTN (hypertension) Priority: Secondary Status: Chronic Comments: Chronic. Stable. Continued on home medications. Qualifiers: Hypertension type: essential hypertension Qualified Code(s): I10 - Essential (primary) hypertension (6) Prostate cancer Priority: Secondary Status: Resolved Comments: History of prostate cancer with implantation of seeds in prostate Procedures/tests Complete & Pending: Procedures Performed prior 72 hours Category Date Time Status ECG 12 lead ECG [ECG] Stat Y 07/02/17 18:55 Completed ECG 12 lead ECG [ECG] Stat Y 07/02/17 18:55 Ordered EV echocardiogram Routine Y 07/02/17 19:14 Completed Date of admission: 07/02/17 18:28 Primary care physician: Vivek Sosa, Consults: 07/02/17 19:20 Consult to Gastroenterology [CONS] Routine Consulting Provider: Gastroenterology Camila Reason for Consult: Pt. has hx of anemia d/t acute blood loss and reports bright red blood in his stool for the past several months. Son states at one point blood filled the toilet bowl. Pts. Hgb and Hct levels fluctuate d/t recurrent transfusions. Today Hgb is 7.5 and Hct is 23.2; 6.7 and 20.6 on 06/05/17; 8.3 and 24.6 on 11/27/16. Call Completed: Yes Consult to Oncology Hematology [CONS] Routine Consulting Provider: Maria C Saenz Reason for Consult: Pt. has chronic hx of anemia r/t acute blood loss. Pt. 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 Pt. also has hx of atrial fibrillation and is anti-coagulated w/Xarelto. Call Completed: Yes 07/02/17 19:38 Consult to Cardiology [CONS] Routine Comment: Consulting Provider: Cardiology Camial Reason for Consult: Pt. is 85 year old w/hx of atrial fibrillation who is anti-coagulated w/Xarelto. Pt. also has rectal bleeding, hx of anemia r/t blood loss, and recurrent need for transfusions. Pt. is currently in acute exacerbation of CHF. Echocardiogram ordered. GI consult ordered and discussed w/Dr. Chávez. Recommendation needed for continuation of Xarelto d/t current fecal hemoccult and need for colonoscopy on Thursday. Call Completed: Yes Discharging clinician: Rickie Platt - Patient Status Functional capacity at discharge: independent ambulation Overall status at discharge: patient is progressing back to baseline - Diet and Activity Activity: resume usual activities as tolerated Diet: advance to your usual diet Hospital course: Mr. Bland is a 87 year old male with past medical history of prostate cancer s/ p implantation of radiation seeds, anemia requiring previous transfusions, CHF, atrial fibrillation, hyperlipidemia and hypertension who was admitted for worsening bilateral lower extremity edema to groin. Daughter who was also present with him stated that he had experienced increasing bilateral lower extremity edema to his groin and including scrotum and penis. Daughter reported that patient had been snacking on pork rinds recently at home. He was diuresed with IV lasix and had > 2 liters of urine output. He had mentioned ove rthe last few months that he had experienced a few episodes of blood in his stool, especially when he had a difficult time having a bowel movement. He had a hemocult performed in the mergency room which was positive. GI was consulted and recommended colonoscopy to evaluate for occult bleeding. Patient expressed strong interest in going home and colonoscopy could not be performed until Thursday. He should follow up with GI as an outpatient to have an outpatient colonoscopy performed. His hemoglobin was stable and aroudn his baseline. He should have a follow up CBC as an outpatient to further monitor hemoglobin level. - Time Spent with Patient Total time spent providing and/or coordinating discharge services: - Constitutional Vitals: Temp Pulse Resp BP Pulse Ox 98.1 F 96 17 94/68 99 07/03/17 12:10 07/03/17 12:10 07/03/17 12:10 07/03/17 12:10 07/03/17 12:10 General appearance: Present: A&O X 0, cooperative, pleasant, no acute distress, answers questions appropriately - Head Head exam: Present: atraumatic, normocephalic - ENT ENT exam: Present: mucous membranes moist - Neck Neck exam general surgery: Present: supple, trachea midline - Respiratory Respiratory exam: Present: CTAB. Absent: rales, rhonchi, stridor, wheezes - Cardiovascular Cardiovascular exam: Present: RRR, +S1, +S2. Absent: diastolic murmur, systolic murmur - GI/Abdominal GI/Abdominal exam: Present: normal bowel sounds, soft. Absent: firm, guarding, rigid, tenderness - Extremities Exam Extremities exam: Present: pedal edema (+ 2 pitting edema bilateral lower extremities to knees) - Skin Skin exam: Present: dry, intact, warm
[2017-07-03] MEDS ORDERED: *HR* Rivaroxaban 15 MG TABLET PO SCH (17:00)
--- NOTE | 2017-07-04 13:48 | Electrocardiograph Report ---
[address] [address] Test Date: 2017-07-02 Pat Name: Jayesh Bland Department: 110 Room: 2N13 Gender: M Supply Aide: ALMAS : 1930 Requested By: Trevor Villalpando Order Number: [id number] Reading MD: Paula Barrera Measurements Intervals [place] Rate: 101 P: CO: 0 QRS: 15 QRSD: 98 T: 162 QT: 386 QTc: 444 Interpretive Statements ATRIAL FLUTTER/TACHYCARDIA WITH RAPID VENTRICULAR RESPONSE WITH ABERRANT CONDUCTION OR VENTRICULAR PREMATURE COMPLEXES ST DEVIATION AND MODERATE T-WAVE ABNORMALITY, CONSIDER LATERAL ISCHEMIA Electronically Signed On 07-04-2017 13:47:21 EST by Paula Barrera
== END 2017-07-03 16:25 | disposition home or self-care (01) | DRG 292 ==
LOC: EMEROO 13:43 → 2NNU 13:43
PROVIDERS: ADMIT Hospitalist; ATTEND Internal Medicine

== ENCOUNTER 2017-08-05 15:22 | Inpatient (IN) ==
--- NOTE | 2017-08-05 16:29 | Emergency Department Note ---
Disposition Clinical Impression: Elevated troponin, LANEY (acute kidney injury) CHF (congestive heart failure) Qualifiers: Congestive heart failure type: unspecified Congestive heart failure chronicity : unspecified Qualified Code(s): I50.9 - Heart failure, unspecified Disposition: Admitted As Inpatient Condition: Fair Time of Disposition: 17:14 General Adult HPI - General Chief complaint: ED General Medical Stated complaint: Edema Time Seen by Provider: 08/05/17 16:16 Source: patient, family Mode of arrival: ambulatory Limitations: no limitations Nursing Notes Reviewed: Yes Vital Signs Reviewed: Yes - History of Present Illness HPI Narrative: 87-year-old male presents for evaluation of swelling of his legs and his scrotum. Patient also noted a 13 pound weight gain over the past week. Patient was seen in the cardiology office and was told to come to the ER. Patient states he been taking his medications as directed. Increasing water intake. Patient notes worsening swelling in his legs and scrotum. Patient denies any chest pain but does note dyspnea primarily with exertion. Does wear oxygen at home. Notes his dyspnea is approximately for 5 steps and needs to stop. Patient denies any fevers or cough. Patient denies any abdominal pain. No nausea. Patient was recently admitted approximately a month ago for similar complaints with symptoms of congestive heart failure. Pain Scale: 0 - Related Data Home Medications Medication Instructions Recorded Confirmed Aspirin 81 mg PO DAILY 11/25/16 08/05/17 Folic Acid 1 mg PO DAILY 11/25/16 08/05/17 Metoprolol XL (24 HR) Succ [Toprol 25 mg PO DAILY 11/25/16 08/05/17 Xl] Atorvastatin Calcium [Lipitor] 20 mg PO HS 06/05/17 08/05/17 Docusate Sodium [Stool Softener] 100 mg PO DAILY 06/05/17 08/05/17 Fluticasone Propionate Nasal 50 mcg NS BID PRN 06/05/17 08/05/17 [Flonase] Furosemide [Lasix] 40 mg PO BID 06/05/17 08/05/17 Loratadine [Allergy Relief] 10 mg PO DAILY PRN 06/05/17 08/05/17 Multivit-Min/FA/Lycopen/Lutein 1 each PO DAILY 06/05/17 08/05/17 [Centrum Silver Tablet] Potassium Chloride [K-Tab ER] 20 meq PO DAILY 06/05/17 08/05/17 Rivaroxaban [Xarelto] 15 mg PO 1700 06/05/17 08/05/17 Levobunolol 0.5% [Betagan] 1 drop BOTH EYES BID 07/02/17 08/05/17 Oxygen 2 l NS AD 07/02/17 08/05/17 Sennosides [Senna] 25.8 mg PO HS 07/02/17 08/05/17 Buspirone HCl [Buspar] 5 mg PO BID 08/05/17 08/05/17 hydrOXYzine pamoate [HydrOXYzine 25 mg PO HS 08/05/17 08/05/17 Pamoate] Allergies Allergy/AdvReac Type Severity Reaction Status Date / Time ciprofloxacin [From Cipro] AdvReac Nausea Verified 06/23/17 15:33 Oxycodone [From Percocet] AdvReac Nausea Verified 06/23/17 15:33 rofecoxib [From Vioxx] AdvReac Nausea Verified 06/23/17 15:33 All systems ED: reviewed and negative except as stated. Constitutional: Reports: as per HPI. Denies: fever Eyes: Reports: as per HPI ENT ED: Reports: as per HPI Cardiovascular: Reports: as per HPI. Denies: chest pain Respiratory: Reports: as per HPI, dyspnea. Denies: cough, sputum production Gastrointestinal: Reports: as per HPI. Denies: abdominal pain, nausea, vomiting Genitourinary: Reports: as per HPI Musculoskeletal: Reports: as per HPI Integumentary: Reports: as per HPI Neurological: Reports: as per HPI Psychiatric: Reports: as per HPI Endocrine: Reports: as per HPI Hematological/Lymphatic: Reports: as per HPI Past Medical History - Past Medical History Medical history: Reports: atrial fibrillation, cancer, CHF, COPD, hypertension, kidney stones Surgical history: Reports: coronary bypass (CABG) Psychiatric history: Reports: anxiety - Social History Smoking Status: Never smoker Smokeless Tobacco Status: No Alcohol use: Reports: none Drug use: Reports: none Physical Exam - General Limitations: no limitations General appearance: alert, in no apparent distress - Head Head exam: atraumatic, normocephalic, normal inspection - Eye Eye exam: Present: normal appearance, PERRL, EOMI - ENT ENT exam: normal exam, mucous membranes moist - Neck Neck exam: Present: normal inspection, trachea midline - Chest Chest inspection: Present: normal inspection, symmetric chest wall rise - Respiratory Respiratory exam: Present: other (Diminished left-sided lung sounds). Absent: respiratory distress, accessory muscle use, prolonged expiratory phase - Cardiovascular Cardiovascular exam: Present: tachycardia, irregular rhythm, systolic murmur - Abdominal Exam Abdominal exam: Present: soft, Non-Tender - Male exam: Present: scrotal swelling - Extremities Exam Extremities exam: Present: normal inspection, pedal edema (3+ bilateral pitting edema) - Neurological Exam Neurological exam: Present: alert, oriented X3 - Skin Skin exam: Present: warm, dry, intact, normal color Course Course Narrative: Patient seen and examined. Patient does not appear to be in any acute distress. Patient does have evidence of fluid overload. Patient would likely benefit from inpatient aggressive diuresis. Patient will get basic labs, chest x-ray, EKG and likely admission. Vital Signs Temperature 98.1 F 08/05/17 15:39 Pulse Rate 0 08/05/17 15:39 Respiratory Rate 16 08/05/17 15:39 Blood Pressure 89/58 08/05/17 15:39 O2 Sat by Pulse Oximetry 0 08/05/17 15:39 Temperature 98.1 F 08/05/17 15:39 Pulse Rate 112 08/05/17 17:43 Respiratory Rate 18 08/05/17 18:25 Blood Pressure 119/70 08/05/17 18:25 O2 Sat by Pulse Oximetry 96 08/05/17 17:43 Oxygen Delivery Oxygen Delivery Room Air Medical Decision Making - [facility] Narrative Medical decision making narrative: 87 year old male pt for evaluation of leg swelling as well as scrotal swelling. Patient also has dyspnea on exertion. Patient's findings are consistent was just of heart failure. Patient did have an elevated troponin with nonischemic EKG changes. Patient does have evidence of congestive heart failure. On exam with pedal edema as well as scrotal edema. Patient does have evidence of acute kidney injury. She will be gradually diuresed. Recommend admission to the hospital service. - Lab Data Lab results reviewed: Yes I reviewed the patient's lab results. Result diagrams: 08/05/17 16:21 08/05/17 16:21 Lab Results 08/05/17 08/05/17 08/05/17 Range/Units 16:21 16:21 16:21 WBC 3.7 L (4.3-11.1) K/mcL RBC 1.96 L (4.19-5.50) M/mcL Hgb 7.8 L (12.9-16.9) g/dL Hct 23.8 L (37.5-50.1) % MCV 121.4 H (83.0-100.0) fL MCH 39.8 H (28.0-33.3) pg MCHC 32.8 (31.6-35.5) g/dL RDW 28.9 H (11.5-14.5) % Plt Count 192 (140-400) K/mcL MPV 11.7 (9.4-12.4) fL Seg Neutrophils % 76.0 % Lymphocytes % 18.0 % Monocytes % 6.0 % Neutrophils # 2.8 (1.6-8.9) K/mcL Lymphocytes # 0.7 (0.6-4.6) K/mcL Monocytes # 0.2 (0.0-1.3) K/mcL Nucleated RBCs/100 WBC 0.8 H (0) /100 WBC Smudge Cells Present A (Not Present) Platelet Estimate Normal (Normal) Polychromasia 1+ A (Not Present) Poikilocytosis 2+ A (Not Present) Anisocytosis 3+ A (Not Present) Macrocytosis Present A (Not Present) Ovalocytes 1+ A (Not Present) PT 38.4 H (9.4-12.1) Seconds INR 3.5 APTT 43.0 H (26.0-36.0) Seconds Sodium (136-145) mEq/L Potassium (3.5-5.1) mEq/L Chloride (98-107) mEq/L Carbon Dioxide (23-29) mEq/L BUN (8-23) mg/dL Creatinine (0.70-1.30) mg/dL Est GFR ( Amer) (> 60) Est GFR (Non-Af Amer) (> 60) BUN/Creatinine Ratio (6-26) Glucose (70-105) mg/dL Calculated Osmolality (280-300) Calcium (8.6-10.3) mg/dL Troponin I (< 0.04) ng/mL B-Natriuretic Peptide 996 H (Less than 100) pg/mL Albumin (3.5-5.7) g/dL 08/05/17 08/05/17 Range/Units 16:21 16:21 WBC (4.3-11.1) K/mcL RBC (4.19-5.50) M/mcL Hgb (12.9-16.9) g/dL Hct (37.5-50.1) % MCV (83.0-100.0) fL MCH (28.0-33.3) pg MCHC (31.6-35.5) g/dL RDW (11.5-14.5) % Plt Count (140-400) K/mcL MPV (9.4-12.4) fL Seg Neutrophils % % Lymphocytes % % Monocytes % % Neutrophils # (1.6-8.9) K/mcL Lymphocytes # (0.6-4.6) K/mcL Monocytes # (0.0-1.3) K/mcL Nucleated RBCs/100 WBC (0) /100 WBC Smudge Cells (Not Present) Platelet Estimate (Normal) Polychromasia (Not Present) Poikilocytosis (Not Present) Anisocytosis (Not Present) Macrocytosis (Not Present) Ovalocytes (Not Present) PT (9.4-12.1) Seconds INR APTT (26.0-36.0) Seconds Sodium 137 (136-145) mEq/L Potassium 3.6 (3.5-5.1) mEq/L Chloride 103 (98-107) mEq/L Carbon Dioxide 27 (23-29) mEq/L BUN 35 H (8-23) mg/dL Creatinine 1.43 H (0.70-1.30) mg/dL Est GFR ( Amer) 57 L (> 60) Est GFR (Non-Af Amer) 47 L (> 60) BUN/Creatinine Ratio 24 (6-26) Glucose 126 H (70-105) mg/dL Calculated Osmolality 294 (280-300) Calcium 8.3 L (8.6-10.3) mg/dL Troponin I 0.11 H* (< 0.04) ng/mL B-Natriuretic Peptide (Less than 100) pg/mL Albumin 3.1 L (3.5-5.7) g/dL - Radiology Data Radiology results reviewed: Yes I reviewed the patient's radiology results. Chest X-Ray 08/05/17 16:17 IMPRESSION: 1. Small bilateral pleural effusions with bibasilar atelectasis. 2. Borderline enlargement of the cardiac silhouette with prominence of the pulmonary vasculature. D/ / Garcia Simmons MD / Garcia Simmons MD Interpreting Provider: Garcia Simmons MD - EKG Data EKG #1 Rate: tachycardia Rhythm: A.Fib [place]/QRS: left axis deviation, IVCD T wave inversions noted in: v5, v6 Interpretation: no acute changes S.Meka.Chase - Jessa.Lesli Situation: Demographics Background: Presenting Complaint Assessment: Vital Signs, Course and respsone to treatment, Patient/Family Expectation Recommendation: Barrier(s) to disposition, Recommendation based on pending studies, treatments, or consults SJada Report Given to: Dr. Alba Boyer Repor Time: 17:14 Attestation Statement - Attestation Attestation: I examined this patient and my medical decision-making was reviewed with the Resident Physician. I agree with the documented findings, disposition and treatment plan as described except to the extent set forth below. 87-year-old male presents because of difficulty breathing peripheral edema. He has had worsening symptoms for the past week 13 pound weight gain in the past 7 days. He insists he has been compliant with his medications. Denies chest pain. Does complain of orthopnea and exertional dyspnea. No fevers. No vomiting or diarrhea. Pleasant elderly male in no apparent acute distress. Oropharynx is clear. Neck supple. Chest with his regular rales in the bases. Sounds diminished in the bases. Cardiac exam is irregular abdomen soft, nondistended, nontender. Extremities warm and dry with 2-3+ pitting edema both lower extremities. Chest x-ray consistent with pulmonary edema. Mild renal insufficiency Elevated troponin beyond reference range. He is started on IV diuretics and will be admitted for further evaluation treatment.
[2017-08-05 16:31] LABS: Hematocrit 23.8 % (37.5-50.1); Mean Corpuscular HGB Conc 32.8 g/dL (31.6-35.5); Mean Corpuscular Hemoglobin 39.8 pg (28.0-33.3); Mean Corpuscular Volume 121.4 fL (83.0-100.0); Mean Platelet Volume 11.7 fL (9.4-12.4); Nucleated Red Blood Cells 0.8 /100 WBC (0); Platelet Count 192 K/mcL (140-400); Red Blood Count 1.96 M/mcL (4.19-5.50); Red Cell Distribution Width 28.9 % (11.5-14.5)
[2017-08-05 16:36] LABS: INR 3.5; Prothrombin Time 38.4 Seconds (9.4-12.1)
[2017-08-05 17:06] LABS: Calcium 8.3 mg/dL (8.6-10.3); Potassium 3.6 mEq/L (3.5-5.1)
[2017-08-05 17:07] LABS: Hemoglobin 7.8 g/dL (12.9-16.9)
[2017-08-05] MEDS ORDERED: Aspirin 81 MG TAB.CHEW PO ONE (17:09)
[2017-08-05 17:11] LABS: Anisocytosis 3+ (Not Present); Lymphocytes # 0.7 K/mcL (0.6-4.6); Macrocytosis Present (Not Present); Monocytes # 0.2 K/mcL (0.0-1.3); Neutrophils # 2.8 K/mcL (1.6-8.9); Smudge Cells Present (Not Present)
[2017-08-05 17:12] LABS: Ovalocytes 1+ (Not Present); Platelet Estimate Normal (Normal); Poikilocytosis 2+ (Not Present); Polychromasia 1+ (Not Present)
[2017-08-05] MEDS ORDERED: Furosemide 20 MG/2 ML VIAL IVP ONE (17:27)
[2017-08-05] MEDS ORDERED: Acetaminophen 325 MG TABLET PO PRN ×2 (18:09→18:31)
[2017-08-05] MEDS ORDERED: Naloxone 0.4 MG/ML INJ IVP PRN ×2 (18:09→18:31)
[2017-08-05 18:12] LABS: Albumin 3.1 g/dL (3.5-5.7)
--- NOTE | 2017-08-05 18:42 | Internal Med History&Physical ---
<Liliane Gonzalez - Last Filed: 08/05/17 18:37> Date of Encounter: 08/05/17 Time of Encounter: 18:37 Assessment and Plan (1) Acute exacerbation of CHF (congestive heart failure) Current visit: No Status: Acute 87-year-old gentleman with history of CHF and peripheral edema presented with increasing peripheral edema, scrotal edema, flank edema and weight gain of 10- 13 pounds over the past week. 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 He denies any chest pain or shortness of breath. He does state that he has some difficulty getting around the house secondary to the discomfort from the enlarged scrotum. He uses oxygen intermittently at home. 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 Continue home medications including xarelto Consider cardiology consult Qualifiers: Atrial fibrillation type: chronic Qualified Code(s): I48.2 - Chronic atrial fibrillation (3) Macrocytic anemia Current visit: Yes Status: Chronic He has been evaluated by hematology, he is near his baseline Trend H&H (4) COPD (chronic obstructive pulmonary disease) Current visit: No Status: Chronic Non-exacerbated Continue O2 as needed to maintain sats greater than 89% Qualifiers: COPD type: unspecified COPD Qualified Code(s): J44.9 - Chronic obstructive pulmonary disease, unspecified (5) HTN (hypertension) Current visit: No Status: Chronic Monitor blood pressure Continue home medications Qualifiers: Hypertension type: essential hypertension Qualified Code(s): I10 - Essential (primary) hypertension (6) HLD (hyperlipidemia) Current visit: No Status: Chronic Continue home medication Qualifiers: Hyperlipidemia type: pure hypercholesterolemia Qualified Code(s): E78.00 - Pure hypercholesterolemia, unspecified; E78.0 - Pure hypercholesterolemia (7) Peripheral edema Current visit: No Status: Acute Patient and daughter report increasing size of lower extremities and new swelling of scrotum. Daughter states 10-13 pound weight gain over past week on increased dose of Lasix (8) Conjunctivitis of both eyes Current visit: Yes Status: Acute Cipro ophthalmic eyedrops as ordered Qualifiers: Conjunctivitis type: acute Acute conjunctivitis type: unspecified Qualified Code(s): H10.33 - Unspecified acute conjunctivitis, bilateral (9) LANEY (acute kidney injury) Current visit: Yes Status: Acute Acute on chronic kidney injury Follow lab values, patient will be on Lasix Last recorded creatinine 0.93 Internal Medicine - H&P: HPI Admitted From: Home Plans for Post Hospital Care: Home History of present illness: Mr. Bland is a 87 year old male who presented to the emergency room today for evaluation of increasing edema of his lower extremities and scrotum. 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 He was reluctant to stay and really wanted to go home. After a long discussion with Dr. Willis he decided he would stay for a few days. He denies chest pain, shortness of breath , syncope, abdominal pain, fever, chills, recent illness. His major complaint is the size of his scrotum. He is having difficulty walking secondary to the edema. Discussed CODE STATUS with the patient and his daughter and he wants to be a full code here. Discussed the plan of care and admission and both the daughter and patient are in agreement. He has a history significant for COPD, CABG, CHF, atrial fib, macrocytic anemia, peripheral edema, and increased oral Lasix dosing. He states he has gained at least 10 pounds in fluid retention and weight. She is currently on 2 L nasal cannula which he uses intermittently at home. His daughter states he was to take 40 mg of Lasix twice a day and was taking 2 -40 mg tablets twice a day for a total 160 mg daily for the past 1 week. Past Med Surg Social Fam HX - Past Medical History Source: patient, obtained from family Medical history: atrial fibrillation, cancer, CHF, COPD, coronary artery disease , hypertension, kidney stones, venous stasis, other (Lower extremity peripheral edema) Psychiatric history: anxiety - Past Surgical History Surgical History: coronary bypass (CABG), orthopedic, other (Right hip repair status post fracture), other (Prostate cancer with brachytherapy) - Social History Smoking Status: Never smoker Smokeless Tobacco Status: No Alcohol use: none Drug use: none Occupational status: retired Current living situation: Home, With Family Activity Level: Uses cane/walker, Other (Crutches and holds onto furniture to move through the house) - Family History Mother Family Member Ethnicity: Non- Living Status: Hx Family Cancer: Yes (Bone) Father Family Member Ethnicity: Non- Living Status: Hx Family Cardiac Disorders: Yes (CAD) Brother Family Member Ethnicity: Non- Living Status: Hx Family Cardiac Disorders: Yes (CAD, CT, HTN) Sister Family Member Ethnicity: Non- Living Status: Hx Family Cancer: Yes (Type unknown) - Additional Family History Additional family history: Noncontributory to this event Internal Medicine - H&P: Meds Aspirin 81 mg PO DAILY 11/25/16 [History] Folic Acid 1 mg PO DAILY 11/25/16 [History] Metoprolol XL (24 HR) Succ [Toprol Xl] 25 mg PO DAILY 11/25/16 [History] Atorvastatin Calcium [Lipitor] 20 mg PO HS 06/05/17 [History] Docusate Sodium [Stool Softener] 100 mg PO DAILY 06/05/17 [History] Fluticasone Propionate Nasal [Flonase] 50 mcg NS BID PRN 06/05/17 [History] Furosemide [Lasix] 40 mg PO BID 06/05/17 [History] Loratadine [Allergy Relief] 10 mg PO DAILY PRN 06/05/17 [History] Multivit-Min/FA/Lycopen/Lutein [Centrum Silver Tablet] 1 each PO DAILY 06/05/17 [History] Potassium Chloride [K-Tab ER] 20 meq PO DAILY 06/05/17 [History] Rivaroxaban [Xarelto] 15 mg PO 1700 06/05/17 [History] Levobunolol 0.5% [Betagan] 1 drop BOTH EYES BID 07/02/17 [History] Oxygen 2 l NS AD 07/02/17 [History] Sennosides [Senna] 25.8 mg PO HS 07/02/17 [History] Buspirone HCl [Buspar] 5 mg PO BID 08/05/17 [History] hydrOXYzine pamoate [HydrOXYzine Pamoate] 25 mg PO HS 08/05/17 [History] 3 Allergy/AdvReac Type Severity Reaction Status Date / Time ciprofloxacin [From Cipro] AdvReac Nausea Verified 06/23/17 15:33 Oxycodone [From Percocet] AdvReac Nausea Verified 06/23/17 15:33 rofecoxib [From Vioxx] AdvReac Nausea Verified 06/23/17 15:33 All Systems PM: A 10-system review of systems was performed and is negative for pertinent findings except as documented above in the HPI. - Constitutional Constitutional: weight gain, no chills, no fever(s), no night sweats - EENT Eyes: discharge (right eye), irritation, no change in vision, no pain, no photophobia Ears: no ear discharge, no ear pain, no tinnitus Nose, mouth and throat: other (lips dry, slight cyanotic), no dysphagia, no nasal discharge, no neck pain, no sore throat - Cardiovascular Cardiovascular ROS IM: edema, irregular heart rhythm, no chest pain, no diaphoresis, no dyspnea, no lightheadedness, no palpitations, no syncope - Respiratory Respiratory: dyspnea on exertion, no cough, no dyspnea, no wheezing, no excessive phlegm production - Gastrointestinal Gastrointestinal: no abdominal pain, no diarrhea, no hematemesis, no hematochezia, no melena, no nausea, no vomiting - Genitourinary Genitourinary ROS male: other (Testicular edema) - Musculoskeletal Musculoskeletal ROS IM: other (Neuropathy of hands and feet), no numbness, no tingling - Integumentary Integumentary IM: other (Vascular skin changes to left lower extremity), no rash , no unusual bruising - Neurological Neurological ROS: no confusion, no convulsions, no focal weakness, no numbness, no tingling, no tremor(s) - Psychiatric Psychiatric: other (Daughter reports short-term memory loss at bedtime) - Hematologic/Lymphatic Hematologic/Lymphatic: no easy bruising - Constitutional Vitals: Temp Pulse Resp BP Pulse Ox 98.1 F 112 18 119/70 96 08/05/17 15:39 08/05/17 17:43 08/05/17 18:25 08/05/17 18:25 08/05/17 17:43 General appearance: Present: A&O X 3, pleasant, no acute distress - Head Head exam: Present: atraumatic, normocephalic - Eye Eye exam: Present: PERRL, sclera anicteric Pupils: Present: PERRL - Expanded Eye Exam Eyelids: bilateral: erythema sclera: right: exudate - Neck Neck exam general surgery: Present: supple, trachea midline. Absent: lymphadenopathy - Respiratory Respiratory exam: Present: CTAB. Absent: accessory muscle use, rales, rhonchi, wheezes - Cardiovascular Cardiovascular exam: Present: irregular rhythm, RRR, +S1, +S2, systolic murmur, tachycardia. Absent: diastolic murmur, gallop, rubs - GI/Abdominal GI/Abdominal exam: Present: normal bowel sounds, soft, no peritoneal signs. Absent: distended, tenderness - Extremities Exam Extremities exam: Present: pedal edema, warm. Absent: calf tenderness, cyanotic Additional comments: Pitting Edema from flanks to feet with some water blisters noted and vascular skin changes especially of the left lower extremity - Neurological Exam Neurological exam: Present: oriented X3, no focal deficits. Absent: pronater drift, facial droop, speech deficit - Skin Skin exam: Present: dry, vesicles (lower extemities), warm Internal Med - H&P Results - Labs CBC & Chem 7: 08/05/17 16:21 08/05/17 16:21 <Neymar Tafoya - Last Filed: 08/05/17 20:51> Date of Encounter: 08/05/17 Internal Medicine - H&P: HPI History of present illness: Mr. Bland is a 87 year old male All Systems PM: A 10-system review of systems was performed and is negative for pertinent findings except as documented above in the HPI. - Constitutional Vitals: Temp Pulse Resp BP Pulse Ox 97.9 F 62 16 93/63 100 08/05/17 19:24 08/05/17 19:24 08/05/17 19:24 08/05/17 19:24 08/05/17 19:24 Internal Med - H&P Results - Labs CBC & Chem 7: 08/05/17 16:21 08/05/17 16:21 - Attending Attestation I have personally performed a face to face evaluation on this patient. I have reviewed and agree with the care plan. History and Exam by me shows: 87 yo male with clinical CHF exacerbation Developed subacute progressive SOB, scrotal swelling, b/l LE swelling in the last 3 weeks but got acutely worse in the last 2 days despite uptitration of home lasix from 20mg QD to 40mg BID over the last 3 days. Had been on 40mg BID for the last 1 week. Also note of erythema that has been progressive over the LLE for the last 1 month that was observed. This is not improvement and has worsened Baseline, he uses 2 L prn oxygen but has noticed increased use. XR/XR chest 1V portable IMPRESSION: 1. Small bilateral pleural effusions with bibasilar atelectasis. 2. Borderline enlargement of the cardiac silhouette with prominence of the pulmonary vasculature. A/P Acute on chronic CHF - recent TTE 06/2017 with LVEF 40, but with moderate and other valvular dysfunction - trial lasix 40mg IV BID for now - consider card eval in the a.m for valvular disease optimization eval LLE erythema that is asymmetrical - will treat with doxy/keflex given that this is worsening - check doppler US to r/o DVT (already on xarelto so less likely)
[2017-08-05] MEDS ORDERED: Ciprofloxacin OPTH Soln 2.5 ML BOTTLE RIGHT EYE SCH (20:00)
[2017-08-05] MEDS: Furosemide 40 MG/4 ML VIAL IVP SCH (20:15)
[2017-08-05] MEDS ORDERED: LEVOBUNOLOL 0.5% BOTH EYES SCH (21:00)
[2017-08-05] MEDS ORDERED: Sennosides 8.6 MG TABLET PO SCH (21:00)
[2017-08-05] MEDS ORDERED: hydrOXYzine pamoate 25 MG CAPSULE PO SCH (21:00)
[2017-08-05] MEDS ORDERED: NON-FORMULARY MEDICATION 1 EACH EACH (Atorvastatin Calcium [Lipitor] 20 MG) PO SCH (21:00)
[2017-08-05] MEDS: Sennosides 8.6 MG TABLET PO SCH (23:07)
[2017-08-05] MEDS: hydrOXYzine pamoate 25 MG CAPSULE PO SCH (23:08)
[2017-08-05] MEDS: cephALEXin 500 MG CAPSULE PO SCH (23:08)
[2017-08-05] MEDS: Doxycycline 100 MG CAPSULE PO SCH (23:08)
[2017-08-05] MEDS: LEVOBUNOLOL 0.5% BOTH EYES SCH (23:09)
[2017-08-05] MEDS: Ciprofloxacin OPTH Soln 2.5 ML BOTTLE BOTH EYES SCH (23:09)
[2017-08-06] MEDS: Ciprofloxacin OPTH Soln 2.5 ML BOTTLE BOTH EYES SCH (00:49)
[2017-08-06] MEDS: Erythromycin OPTH Oint RIGHT EYE SCH ×4 (01:34→20:29)
[2017-08-06 05:29] LABS: Basophils % 1.1 %; Hematocrit 22.5 % (37.5-50.1); Hemoglobin 7.2 g/dL (12.9-16.9); Immature Granulocytes % 5.5 % (0-4); Lymphocytes # 0.9 K/mcL (0.6-4.6); Lymphocytes % 34.4 %; Mean Corpuscular Hemoglobin 39.1 pg (28.0-33.3); Mean Corpuscular Volume 122.3 fL (83.0-100.0); Mean Platelet Volume 11.7 fL (9.4-12.4); Monocytes # 0.4 K/mcL (0.0-1.3); Monocytes % 12.8 %; Neutrophils # 1.3 K/mcL (1.6-8.9); Nucleated Red Blood Cells 0.7 /100 WBC (0); Platelet Count 151 K/mcL (140-400); Red Blood Count 1.84 M/mcL (4.19-5.50); Red Cell Distribution Width 28.9 % (11.5-14.5); Segmented Neutrophils % 46.2 %
[2017-08-06 05:43] LABS: BUN/Creatinine Ratio 26 (6-26); Blood Urea Nitrogen 35 mg/dL (8-23); Carbon Dioxide 31 mEq/L (23-29); Chloride 106 mEq/L (98-107); Glucose 128 mg/dL (70-105); Osmolality,Calculated 300 (280-300); Potassium 3.5 mEq/L (3.5-5.1); Sodium 140 mEq/L (136-145); eGFR For African Americans > 60 (> 60); eGFR For Non-African Americans 50 (> 60)
[2017-08-06 06:07] LABS: Thyroid Stimulating Hormone 8.853 mcIU/mL (0.340-5.600)
[2017-08-06 06:26] LABS: Anisocytosis 2+ (Not Present); Macrocytosis Present (Not Present)
[2017-08-06 06:27] LABS: Platelet Estimate Normal (Normal); Reactive Lymphocytes Present (Not Present)
[2017-08-06] MEDS ORDERED: Metoprolol XL (24 HR) Succ 25 MG TAB.ER.24H PO SCH (09:00)
[2017-08-06] MEDS ORDERED: Aspirin 81 MG TAB.CHEW PO SCH (09:00)
[2017-08-06] MEDS ORDERED: NON-FORMULARY MEDICATION 1 EACH EACH (Multivit-Min/Fa/Lycopen/Lutein [Centrum Silver Table PO SCH (09:00)
[2017-08-06] MEDS: Aspirin 81 MG TAB.CHEW PO SCH (10:00)
[2017-08-06] MEDS: Furosemide 40 MG/4 ML VIAL IVP SCH ×2 (10:01→11:30)
[2017-08-06] MEDS: Metoprolol XL (24 HR) Succ 25 MG TAB.ER.24H PO SCH ×2 (10:02→11:30)
[2017-08-06] MEDS: Doxycycline 100 MG CAPSULE PO SCH (10:02)
[2017-08-06] MEDS: cephALEXin 500 MG CAPSULE PO SCH (10:02)
[2017-08-06] MEDS: Multivit/Ca/Min/Fe/FA 1 TAB TABLET PO SCH (11:27)
[2017-08-06] MEDS: LEVOBUNOLOL 0.5% BOTH EYES SCH ×2 (11:28→20:29)
--- NOTE | 2017-08-06 13:08 | Internal Med Progress Note ---
Date of Encounter: 08/06/17 Time of Encounter: 13:05 - Assessment and plan (1) Acute exacerbation of CHF (congestive heart failure) Current Visit: No Status: Acute Assessment and plan: Acute systolic CHF exacerbation with bilateral pleural effusions The patient has severe scrotal edema and severe bilateral lower extremity edema Stop Lasix and start Bumex 1 mg 3 times a day Strict I's and O's and daily weight Has a prior echocardiogram with an ejection fraction of 40%, moderate to severe mitral regurgitation tricuspid regurgitation and moderate pulmonary hypertension Qualifiers: Congestive heart failure type: systolic Qualified Code(s): I50.23 - Acute on chronic systolic (congestive) heart failure (2) Pleural effusion Current Visit: Yes Status: Acute Assessment and plan: Bilateral pleural effusions likely secondary to acute systolic CHF exacerbation (3) Cellulitis Current Visit: Yes Status: Acute Assessment and plan: Bilateral lower extremity cellulitis more on the left Culture wound Continue doxycycline day to, discontinue Keflex Qualifiers: Site of cellulitis: extremity Site of cellulitis of extremity: lower extremity Laterality: unspecified laterality Qualified Code(s): L03.119 - Cellulitis of unspecified part of limb (4) Afib Current Visit: No Status: Chronic Assessment and plan: Continue Xarelto and metoprolol Qualifiers: Atrial fibrillation type: chronic Qualified Code(s): I48.2 - Chronic atrial fibrillation (5) Coronary artery disease Current Visit: No Status: Chronic Assessment and plan: Continue aspirin and atorvastatin Qualifiers: Coronary Disease-Associated Artery/Lesion type: [place] artery [place] vs. transplanted heart: [place] heart Associated angina: without angina Qualified Code(s): I25.10 - Atherosclerotic heart disease of [place] coronary artery without angina pectoris (6) COPD (chronic obstructive pulmonary disease) Current Visit: No Status: Chronic Assessment and plan: No exacerbation Qualifiers: COPD type: unspecified COPD Qualified Code(s): J44.9 - Chronic obstructive pulmonary disease, unspecified (7) HTN (hypertension) Current Visit: No Status: Chronic Qualifiers: Hypertension type: essential hypertension Qualified Code(s): I10 - Essential (primary) hypertension (8) Elevated troponin Current Visit: Yes Status: Acute Assessment and plan: Likely secondary to demand ischemia (9) LANEY (acute kidney injury) Current Visit: Yes Status: Acute Assessment and plan: Improving with diuresis (10) Conjunctivitis of both eyes Current Visit: Yes Status: Acute Assessment and plan: Continue ciprofloxacin ophthalmic solution Qualifiers: Conjunctivitis type: acute Acute conjunctivitis type: unspecified Qualified Code(s): H10.33 - Unspecified acute conjunctivitis, bilateral - Subjective Interval history: Feels less short of breath, denies any chest pain, no fevers, no abdominal pain , scrotum is still very swollen, both lower extremities are still very swollen but less than yesterday, there is less erythema especially in the left lower extremity - Constitutional Vitals: Temp Pulse Resp BP Pulse Ox 97.9 F 103 18 102/71 100 08/06/17 11:19 08/06/17 11:19 08/06/17 11:19 08/06/17 11:19 08/06/17 11:19 General appearance: Present: A&O X 3, pleasant, no acute distress - Head Head exam: Present: atraumatic, normocephalic - Eye Eye exam: Present: conjunctival injection (Very erythematous conjunctiva), PERRL , conjuntiva pink, sclera anicteric Pupils: Present: PERRL - Neck Neck exam general surgery: Present: supple, trachea midline. Absent: lymphadenopathy - Respiratory Respiratory exam: Present: decreased breath sounds, CTAB. Absent: accessory muscle use, rales, rhonchi, wheezes Additional comments: Blunted breath sounds in both bases - Cardiovascular Cardiovascular exam: Present: RRR, +S1, +S2. Absent: diastolic murmur, gallop, rubs, systolic murmur - GI/Abdominal GI/Abdominal exam: Present: normal bowel sounds, soft, no peritoneal signs. Absent: distended, tenderness - Extremities Exam Extremities exam: Present: pedal edema, warm, radial pulses palpable and symmetrical. Absent: calf tenderness, cyanotic Additional comments: Severe scrotal edema, +3 pitting edema in both lower extremities with left lower extremity erythema below the knee - Neurological Exam Neurological exam: Present: CN II-XII intact, oriented X3, no focal deficits. Absent: pronater drift, facial droop, speech deficit - Skin Skin exam: Present: dry, intact Internal Medicine: Result - Labs CBC & Chem 7: 08/06/17 04:57 08/06/17 04:57 Labs: Short CBC 08/06/17 Range/Units 04:57 WBC 2.7 L (4.3-11.1) K/mcL Hgb 7.2 L (12.9-16.9) g/dL Hct 22.5 L (37.5-50.1) % Plt Count 151 (140-400) K/mcL Neutrophils # 1.3 L (1.6-8.9) K/mcL BMP 08/06/17 04:57 Sodium 140 Potassium 3.5 Chloride 106 Carbon Dioxide 31 H BUN 35 H Creatinine 1.36 H Glucose 128 H Calcium 8.0 L Cardiac Enzymes 08/06/17 08/06/17 Range/Units 04:57 11:07 Troponin I 0.11 H* 0.09 H* (< 0.04) ng/mL - ABG Interpretation ABG results: PT/INR, D-dimer PT 38.4 Seconds (9.4-12.1) H 08/05/17 16:21 Consult Discharge Plan - Plan Referrals: Vivek Sosa DO [Primary Care Provider] -
--- NOTE | 2017-08-06 15:59 | Electrocardiograph Report ---
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
[2017-08-06] MEDS ORDERED: *HR* Rivaroxaban 15 MG TABLET PO SCH ×2 (17:00)
[2017-08-06] MEDS: Bumetanide 1 MG/4 ML VIAL IVP SCH ×3 (17:26→20:22)
[2017-08-06] MEDS: Doxycycline 100 MG in 0.9 % Sodium Chloride Mini Bag 100 ML IVPB SCH (17:33)
[2017-08-06] MEDS: Sennosides 8.6 MG TABLET PO SCH (20:28)
[2017-08-06] MEDS: hydrOXYzine pamoate 25 MG CAPSULE PO SCH (20:28)
[2017-08-07 03:09] LABS: Basophils % 0.8 %; Hematocrit 23.6 % (37.5-50.1); Hemoglobin 7.5 g/dL (12.9-16.9); Immature Granulocytes % 7.1 % (0-4); Lymphocytes # 0.8 K/mcL (0.6-4.6); Lymphocytes % 31.4 %; Mean Corpuscular HGB Conc 31.8 g/dL (31.6-35.5); Mean Corpuscular Hemoglobin 39.3 pg (28.0-33.3); Mean Corpuscular Volume 123.6 fL (83.0-100.0); Monocytes # 0.4 K/mcL (0.0-1.3); Monocytes % 14.1 %; Neutrophils # 1.2 K/mcL (1.6-8.9); Nucleated Red Blood Cells 0.8 /100 WBC (0); Platelet Count 173 K/mcL (140-400); Red Blood Count 1.91 M/mcL (4.19-5.50); Red Cell Distribution Width 28.7 % (11.5-14.5); Segmented Neutrophils % 46.6 %
[2017-08-07 03:25] LABS: BUN/Creatinine Ratio 27 (6-26); Blood Urea Nitrogen 35 mg/dL (8-23); Calcium 7.9 mg/dL (8.6-10.3); Carbon Dioxide 29 mEq/L (23-29); Chloride 105 mEq/L (98-107); Glucose 145 mg/dL (70-105); Osmolality,Calculated 299 (280-300); Potassium 3.7 mEq/L (3.5-5.1); Sodium 139 mEq/L (136-145); eGFR For African Americans > 60 (> 60); eGFR For Non-African Americans 52 (> 60)
[2017-08-07 03:53] LABS: Anisocytosis 1+ (Not Present); Macrocytosis Present (Not Present); Platelet Estimate Normal (Normal); Poikilocytosis 1+ (Not Present)
[2017-08-07] MEDS: Doxycycline 100 MG in 0.9 % Sodium Chloride Mini Bag 100 ML IVPB SCH (06:45)
--- NOTE | 2017-08-07 09:52 | Discharge Summary ---
Date of Encounter: 08/07/17 Time of Encounter: 09:48 - Discharge Diagnosis (1) Acute exacerbation of CHF (congestive heart failure) Priority: Primary Status: Acute Comments: Acute systolic CHF exacerbation with bilateral pleural effusions The patient has severe scrotal edema and severe bilateral lower extremity edema Qualifiers: Congestive heart failure type: systolic Qualified Code(s): I50.23 - Acute on chronic systolic (congestive) heart failure (2) Pleural effusion Priority: Primary Status: Acute (3) Cellulitis Priority: Primary Status: Acute Comments: Bilateral lower extremity cellulitis more on the left Qualifiers: Site of cellulitis: extremity Site of cellulitis of extremity: lower extremity Laterality: unspecified laterality Qualified Code(s): L03.119 - Cellulitis of unspecified part of limb (4) Afib Priority: Secondary Status: Chronic Qualifiers: Atrial fibrillation type: chronic Qualified Code(s): I48.2 - Chronic atrial fibrillation (5) Coronary artery disease Priority: Secondary Status: Chronic Qualifiers: Coronary Disease-Associated Artery/Lesion type: [place] artery [place] vs. transplanted heart: [place] heart Associated angina: without angina Qualified Code(s): I25.10 - Atherosclerotic heart disease of [place] coronary artery without angina pectoris (6) COPD (chronic obstructive pulmonary disease) Priority: Secondary Status: Chronic Qualifiers: COPD type: unspecified COPD Qualified Code(s): J44.9 - Chronic obstructive pulmonary disease, unspecified (7) HTN (hypertension) Priority: Secondary Status: Chronic Qualifiers: Hypertension type: essential hypertension Qualified Code(s): I10 - Essential (primary) hypertension (8) Elevated troponin Priority: Secondary Status: Acute (9) LANEY (acute kidney injury) Priority: Secondary Status: Acute (10) Conjunctivitis of both eyes Priority: Secondary Status: Acute Qualifiers: Conjunctivitis type: acute Acute conjunctivitis type: unspecified Qualified Code(s): H10.33 - Unspecified acute conjunctivitis, bilateral - Discharge Medications Prescriptions: Erythromycin OPTH Oint 1 appl RIGHT EYE Q6HWA #1 tube Bumetanide [Bumex] 1 mg PO TID #90 tablet Doxycycline 100 mg PO BID #10 capsule Lactulose 20 gm PO HS 30 Days mls Home Medications: Aspirin 81 mg PO DAILY 11/25/16 [History] Folic Acid 1 mg PO DAILY 11/25/16 [History] Metoprolol XL (24 HR) Succ [Toprol Xl] 25 mg PO DAILY 11/25/16 [History] Atorvastatin Calcium [Lipitor] 20 mg PO HS 06/05/17 [History] Docusate Sodium [Stool Softener] 100 mg PO DAILY 06/05/17 [History] Fluticasone Propionate Nasal [Flonase] 50 mcg NS BID PRN 06/05/17 [History] Loratadine [Allergy Relief] 10 mg PO DAILY PRN 06/05/17 [History] Multivit-Min/FA/Lycopen/Lutein [Centrum Silver Tablet] 1 each PO DAILY 06/05/17 [History] Potassium Chloride [K-Tab ER] 20 meq PO DAILY 06/05/17 [History] Rivaroxaban [Xarelto] 15 mg PO 1700 06/05/17 [History] Levobunolol 0.5% [Betagan] 1 drop BOTH EYES BID 07/02/17 [History] Oxygen 2 l NS AD 07/02/17 [History] Sennosides [Senna] 25.8 mg PO HS 07/02/17 [History] Buspirone HCl [Buspar] 5 mg PO BID 08/05/17 [History] hydrOXYzine pamoate [HydrOXYzine Pamoate] 25 mg PO HS 08/05/17 [History] Bumetanide [Bumex] 1 mg PO TID #90 tablet 08/07/17 [Rx] Doxycycline 100 mg PO BID #10 capsule 08/07/17 [Rx] Erythromycin OPTH Oint 1 appl RIGHT EYE Q6HWA #1 tube 08/07/17 [Rx] Lactulose 20 gm PO HS 30 Days mls 08/07/17 [Rx] Allergies/Adverse Reactions: 3 Allergy/AdvReac Type Severity Reaction Status Date / Time ciprofloxacin [From Cipro] AdvReac Nausea Verified 06/23/17 15:33 Oxycodone [From Percocet] AdvReac Nausea Verified 06/23/17 15:33 rofecoxib [From Vioxx] AdvReac Nausea Verified 06/23/17 15:33 Procedures/tests Complete & Pending: Procedures Performed prior 72 hours Category Date Time Status ECG 12 lead ECG [ECG] Routine Y 08/06/17 04:54 Completed ECG 12 lead ECG [ECG] Routine Y 08/06/17 14:56 Completed EKG [ECG 12 lead ECG] [ECG] AM 0600 Y 08/06/17 06:00 Completed Date of admission: 08/05/17 21:52 Primary care physician: Vivek Sosa, - Patient Status Disposition: Home, Self-Care Condition: Fair Overall status at discharge: patient is progressing back to baseline - Discharge Instructions Follow Up With: Vivek Sosa, [Primary Care Provider] - Additional Instructions: Follow-up with primary care physician within the next 7 days. Stop Lasix and start taking Bumex. Continue 5 more days of doxycycline. Continue lactulose, continue ophthalmic erythromycin for 4 more days, minimize fluid intake. - Diet and Activity Activity: increase activity as tolerated Diet: low fat, low cholesterol, low salt diet Hospital course: Mr. Bland is a 87 year old male with history of systolic CHF, COPD oxygen dependent intermittently at home on 2 L, CABG, nephrolithiasis, atrial fib on Xarelto, radiation proctitis, macrocytic anemia, and peripheral edema presented with increasing leg edema, scrotal edema, flank edema and weight gain of 10-13 pounds over the past week. He was sent over to the ER for evaluation by nurse practitioner of the gas worker office. He denied any chest pain or shortness of breath. He does state that he has some difficulty getting around the house secondary to the discomfort from the enlarged scrotum. He uses oxygen intermittently at home. He had increased his Lasix 40 mg twice a day to 80 mg twice a day for a total of 160 mg over the last week Has a prior echocardiogram with an ejection fraction of 40%, moderate to severe mitral regurgitation tricuspid regurgitation and moderate pulmonary hypertension. Was started on ophthalmic erythromycin due to conjunctivitis. Was started on Keflex and doxycycline for bilateral lower extremity cellulitis mainly on the left leg. Was continued only on doxycycline and is improving. Was switched to Bumex. Stable to be discharged home - Time Spent with Patient Total time spent providing and/or coordinating discharge services: Greater than 30 minutes (40 min) - Constitutional Vitals: Temp Pulse Resp BP Pulse Ox 97.5 F L 85 16 101/66 94 08/07/17 07:51 08/07/17 07:51 08/07/17 07:51 08/07/17 07:51 08/07/17 07:51 General appearance: Present: A&O X 3, pleasant, no acute distress Exam: - Head Head exam: Present: atraumatic, normocephalic - Eye Eye exam: Present: conjunctival injection (Very erythematous conjunctiva), PERRL , conjuntiva pink, sclera anicteric Pupils: Present: PERRL - Neck Neck exam general surgery: Present: supple, trachea midline. Absent: lymphadenopathy - Respiratory Respiratory exam: Present: decreased breath sounds, CTAB. Absent: accessory muscle use, rales, rhonchi, wheezes Additional comments: Blunted breath sounds in both bases - Cardiovascular Cardiovascular exam: Present: RRR, +S1, +S2. Absent: diastolic murmur, gallop, rubs, systolic murmur - GI/Abdominal GI/Abdominal exam: Present: normal bowel sounds, soft, no peritoneal signs. Absent: distended, tenderness - Extremities Exam Extremities exam: Present: pedal edema, warm, radial pulses palpable and symmetrical. Absent: calf tenderness, cyanotic Additional comments: Severe scrotal edema, +3 pitting edema in both lower extremities improving - Neurological Exam Neurological exam: Present: CN II-XII intact, oriented X3, no focal deficits. Absent: pronater drift, facial droop, speech deficit - Skin Skin exam: Present: dry, intact
--- NOTE | 2017-08-07 10:05 | Physician Discharge Referral ---
Home Health/Hosp Referral Info Transfer to: Home Health Provider in Charge Post Discharge: PCP - Diagnosis (1) Acute exacerbation of CHF (congestive heart failure) Status: Acute (2) Pleural effusion Status: Acute (3) Cellulitis Status: Acute (4) Afib Status: Chronic (5) Coronary artery disease Status: Chronic (6) COPD (chronic obstructive pulmonary disease) Status: Chronic (7) HTN (hypertension) Status: Chronic (8) Elevated troponin Status: Acute (9) LANEY (acute kidney injury) Status: Acute (10) Conjunctivitis of both eyes Status: Acute - Respiratory Orders Oxygen / L per min Smoking Cessation: Smoking cessation has been advised. For more information, call the [employer] Quit Line at [phone]-NOW. - Diet/Nutrition Diet/Nutrition Orders: No Added Salt (HILDA) - Services Needed Home Care Orders: Follow-up with primary care physician within the next 7 days. Stop Lasix and start taking Bumex. Continue 5 more days of doxycycline. Continue lactulose, continue ophthalmic erythromycin for 4 more days, minimize fluid intake - Transfer Medications Prescriptions: Erythromycin OPTH Oint 1 appl RIGHT EYE Q6HWA #1 tube Bumetanide [Bumex] 1 mg PO TID #90 tablet Doxycycline 100 mg PO BID #10 capsule Lactulose 20 gm PO HS 30 Days mls Home Medications: Aspirin 81 mg PO DAILY 11/25/16 [History] Folic Acid 1 mg PO DAILY 11/25/16 [History] Metoprolol XL (24 HR) Succ [Toprol Xl] 25 mg PO DAILY 11/25/16 [History] Atorvastatin Calcium [Lipitor] 20 mg PO HS 06/05/17 [History] Docusate Sodium [Stool Softener] 100 mg PO DAILY 06/05/17 [History] Fluticasone Propionate Nasal [Flonase] 50 mcg NS BID PRN 06/05/17 [History] Loratadine [Allergy Relief] 10 mg PO DAILY PRN 06/05/17 [History] Multivit-Min/FA/Lycopen/Lutein [Centrum Silver Tablet] 1 each PO DAILY 06/05/17 [History] Potassium Chloride [K-Tab ER] 20 meq PO DAILY 06/05/17 [History] Rivaroxaban [Xarelto] 15 mg PO 1700 06/05/17 [History] Levobunolol 0.5% [Betagan] 1 drop BOTH EYES BID 07/02/17 [History] Oxygen 2 l NS AD 07/02/17 [History] Sennosides [Senna] 25.8 mg PO HS 07/02/17 [History] Buspirone HCl [Buspar] 5 mg PO BID 08/05/17 [History] hydrOXYzine pamoate [HydrOXYzine Pamoate] 25 mg PO HS 08/05/17 [History] Bumetanide [Bumex] 1 mg PO TID #90 tablet 08/07/17 [Rx] Doxycycline 100 mg PO BID #10 capsule 08/07/17 [Rx] Erythromycin OPTH Oint 1 appl RIGHT EYE Q6HWA #1 tube 08/07/17 [Rx] Lactulose 20 gm PO HS 30 Days mls 08/07/17 [Rx] Allergies/Adverse Reactions: 3 Allergy/AdvReac Type Severity Reaction Status Date / Time ciprofloxacin [From Cipro] AdvReac Nausea Verified 06/23/17 15:33 Oxycodone [From Percocet] AdvReac Nausea Verified 06/23/17 15:33 rofecoxib [From Vioxx] AdvReac Nausea Verified 06/23/17 15:33 Certification: Further, I certify that my clinical findings support that this patient is homebound (i.e. absences from home require considerable and taxing effort and are for medical reasons or worship services or infrequently or short duration when for other reasons) because: Homebound Reason: Patient requires assistance of a person or device to safely leave home Attestation: My signature below is to certify that this patient is under my care and that I, or nurse practitioner, or a physician's histology assistant working with me, has a face-to -face encounter with this patient.
[2017-08-07] MEDS: Bumetanide 1 MG/4 ML VIAL IVP SCH (11:41)
[2017-08-07] MEDS: Aspirin 81 MG TAB.CHEW PO SCH (11:42)
[2017-08-07] MEDS: Metoprolol XL (24 HR) Succ 25 MG TAB.ER.24H PO SCH (11:43)
[2017-08-07 11:46] VITALS: BP 105/68
--- NOTE | 2017-08-07 12:19 | Electrocardiograph Report ---
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
--- NOTE | 2017-08-07 12:26 | Electrocardiograph Report ---
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
[2017-08-07] MEDS: LEVOBUNOLOL 0.5% BOTH EYES SCH (12:30)
[2017-08-07] MEDS: Erythromycin OPTH Oint RIGHT EYE SCH (12:31)
[2017-08-07] MEDS: Multivit/Ca/Min/Fe/FA 1 TAB TABLET PO SCH (12:31)
== END 2017-08-07 15:05 | disposition home or self-care (01) | DRG 291 ==
LOC: EMEROO 15:22 → 2NENU 15:22 → EMEROO 18:27 → 2NENU 20:50 → SUATTDRO 21:52
PROVIDERS: ADMIT Internal Medicine; ATTEND Internal Medicine